=== PATIENT | female | born 1995 | race Caucasian/White ===

== ENCOUNTER 2021-07-21 14:31 | Inpatient (IN) ==
[2021-07-21] MEDS ORDERED: AMPICILLIN/SULBACTAM SOD 3,000 MG in 0.9 % SODIUM CHLORIDE 100 ML IV STA (15:10)
[2021-07-21] MEDS ORDERED: SODIUM CHLORIDE 0.9% 1000ML 1,000 ML IV ONE (15:13)
[2021-07-21] MEDS ORDERED: NICOTINE POLACRILEX 2 MG GUM MT STA (15:24)
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
[2021-07-21] MEDS ORDERED: NICOTINE 14 MG/24 HR PATCH TD ONE (15:25)
[2021-07-21 15:53] LABS: Hematocrit (blood only) 38.9 % (37-47); Mean Corpuscular Hemoglobin 30.1 pg (25-34); Mean Corpuscular Hgb Conc 33.4 g/dL (32-36); Platelet Count 545 K/uL (130-400); RDW Coefficient of Variation 15.8 % (11.5-14.5); RDW Standard Deviation 52.2 fL (36.4-46.3); Red Blood Count 4.32 M/uL (4.2-5.4); White Blood Count 12.58 K/uL (4.8-10.8)
[2021-07-21 16:17] LABS: Acetaminophen < 2 ug/ml (10-30); Albumin Level 4.2 gm/dl (3.4-5.0); BUN Creatinine Ratio 17.6 (10-20); Calcium 10.2 mg/dl (8.5-10.1); Est GFR (African American) 117.1 ml/min; Potassium 3.5 mmol/L (3.5-5.1); Salicylate < 1.7 mg/dl (2.8-20)
[2021-07-21 16:24] LABS: Basophils # (auto) 0.03 K/uL (0-0.2); Basophils % (auto) 0.2 %; Eosinophils # (auto) 0.08 K/uL (0-0.5); Eosinophils % (auto) 0.6 %; Immature Granulocytes # (auto) 0.02 K/uL (0.00-0.02); Immature Granulocytes % (auto) 0.2 %; Lymphocytes # (auto) 3.77 K/uL (1.2-3.4); Monocytes # (auto) 0.67 K/uL (0.11-0.59); Monocytes % (auto) 5.3 %; Neutrophils # (auto) 8.01 K/uL (1.4-6.5); Neutrophils % (auto) 63.7 %
[2021-07-21 16:27] LABS: Bilirubin,Total 0.7 mg/dl (0.2-1); Globulin 4.1 gm/dl (2.5-4.0); Thyroid Stimulating Hormone 1.24 uIu/ml (0.300-4.500); Total Protein 8.3 gm/dl (6.4-8.2)
--- NOTE | 2021-07-21 17:18 | XRay Report ---
XR hand RT min 3V routine CLINICAL HISTORY: Left hand pain, bruising and swelling. Evaluate for fracture.. COMPARISON STUDY: No previous studies for comparison. TECHNIQUE: 3 right hand views FINDINGS: Bones: There is an oblique fracture present through the base of the fourth metacarpal. It is mildly d isplaced with cortical overriding present. The remaining bones are intact anatomic alignment. There i s no lytic or blastic lesion. Joints: The joint spaces are maintained. The bones are in anatomic alignment. Soft tissues: There is moderate swelling along the dorsum of the hand and also involving the palmar a spect. There is no radiopaque foreign body. IMPRESSION: Oblique, mildly space fracture involving the base of the fourth metacarpal. Soft tissue s welling. ACT 112: Negative or not required by law. Electronically signed by: Abraham Joyce M.D. 07/21/2021 5:17 PM
--- NOTE | 2021-07-21 17:20 | XRay Report ---
XR wrist RT min 3V routine, XR forearm RT 2V CLINICAL HISTORY: Pain, bruising and swelling. COMPARISON STUDY: No previous studies for comparison. TECHNIQUE: 4 right wrist and AP and lateral right forearm views FINDINGS: Bones: There is no evidence for an acute fracture or dislocation. There is no lytic or blastic lesion . Joints: The joint spaces are maintained. The bones are in anatomic alignment. Soft tissues: There is no focal soft tissue abnormality. There is no radiopaque foreign body. IMPRESSION: No acute osseous pathology. ACT 112: Negative or not required by law. Electronically signed by: Abraham Joyce M.D. 07/21/2021 5:19 PM
[2021-07-21 19:00] LABS: Appearance Urine Cloudy (Clear); Bacteria Urine Automated 3+ (Negative); Bilirubin Urine Negative (Negative); Blood Urine Negative (Negative); Color Urine Yellow; Epithelial Cell Urine Auto >30 /lpf (0-5); Glucose Urine UA Negative (Negative); Ketones Urine Trace (Negative); Leukocyte Esterase Urine 1+ (Negative); Nitrite Urine Positive (Negative); Protein Urine Negative (Negative); RBC Urine Automated 0-4 /hpf (0-4); Urobilinogen Urine Negative (Negative)
[2021-07-21 19:27] LABS: Amphetamines+Metham, Urine Pos (Neg); Barbiturates, Urine Neg (Neg); Benzodiazepine, Urine Neg (Neg); Cocaine, Urine Neg (Neg); MDMA (Ecstacy), Urine Pos (Neg); Methadone, Urine Neg (Neg); Opiate, Urine Neg (Neg); Phencyclidine, Urine Neg (Neg)
[2021-07-21 20:58] LABS: Pregnancy Test, Urine Negative (Negative)
[2021-07-21] MEDS ORDERED: LORazepam 1 MG TAB SL PRN (21:04)
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
--- NOTE | 2021-07-22 06:34 | Emergency Department Note ---
ED Visit Note I received this patient in signout at change of shift from Dr. Argueta at the change patient is currently a 302 with a bed search underway. Pt was resting for the night without incident. Case has been signed out to Dr. Flor at the change of shift. Please see his note for final disposition. .
[2021-07-22] MEDS: AMOXICILLIN/CLAVULANATE 875 MG TAB PO SCH ×2 (08:48→20:48)
--- NOTE | 2021-07-22 09:12 | Emergency Department Note ---
ED Visit Note This patient is a 26-year-old female who signed out to me at shift change by Dr. Grande awaiting placement. 302 patient had been signed off on and the patient also had been medically cleared. When I going to check her she is cooperative and eating breakfast. Her nicotine patch did run out so I did renew this. [facility] did review her and seemed willing to take her initially but then declined her as she has a splint for a fracture. I reviewed the x-ray and this definitely needs immobilization. I had our child welfare caseworker call back to see w hat kind of immobilization would be acceptable for them and they said none. Unfortunately because of this they could not take her. [facility] has been consulted for possible admission there as well as they may have a bed this evening. She will be signed out to the evening ER doc for follow-up on this .
[2021-07-22] MEDS: NICOTINE 14 MG/24 HR PATCH TD SCH (09:30)
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
[2021-07-22] MEDS ORDERED: OLANZAPINE 2.5 MG TAB PO ONE (15:00)
[2021-07-22] MEDS ORDERED: PATIENT'S ALLERGY INFO NEEDS ENTERED SCH (15:00)
--- NOTE | 2021-07-22 20:13 | Emergency Department Note ---
ED Visit Note This patient was signed out to me by Dr. Flor pending placement into a psychiatric facility. I did originally see the patient and signed a 302 due to homicidal and suicidal ideation. She was also placed on Augmentin for a UTI as well as right hand infection. She was seen by [address] [facility] [address] Parks recommended Zyprexa. They do have a bed available on [facility] but are unwilling to take her unless she is compliant with the medication. She states that she will take the Zyprexa but she wants to research it more before she takes it and is currently refusing the dosage. She has been otherwise cooperative. She did asked to be tested for MRSA and STDs. A MRSA swab was obtained and was negative. I did also order a GC and chlamydia vaginal swab but she was advised that should she want testing for other STDs she needed to follow-up with her doctor or a clinic. I did talk to the staff at [facility] who also spoke to Dr. Parks of psychiatry. They stated that as long as she is compliant with the medication they would be willing to take her tomorrow morning. The patient was signed out to Dr. Leija at change of shift. .
[2021-07-22] MEDS: PANTOprazole 40 MG TAB PO SCH (20:48)
[2021-07-22] MEDS ORDERED: OLANZapine 5 MG TABLET PO SCH (21:00)
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
--- NOTE | 2021-07-23 04:00 | Emergency Department Note ---
ED Visit Note This case was signed out to me at change of shift awaiting bed placement. Patient rested throughout the night. She will be evaluated by [facility] in the morning. The patient is awaiting evaluation by [facility] The case will be signed out to Dr. Armando at change of shift. .
--- NOTE | 2021-07-23 08:01 | Emergency Department Note ---
ED Visit Note ED Physician Sign Out Note: 26 yr old female with multiple suicidal/homicidal statements in ED on 302 warrant for mental health. Medically cleared earlier and pending placement when signed out to me. Patient has small hand fracture which per Dr Mansfield note is to be in wrist splint. I would advise continued splint, and PCP and/or Ortho follow up as outpatient for re-evaluation once she is discharged. She has concern for hand infection for which she has been receiving Augmentin. It would be reasonable that she continue taking this as per prescribed earlier by ED provider for a total of 7 days, twice daily. Patient was excepted and taken to [facility] for further management. Shayne Armando MD
[2021-07-23] MEDS: NICOTINE 14 MG/24 HR PATCH TD SCH (08:59)
[2021-07-23] MEDS: AMOXICILLIN/CLAVULANATE 875 MG TAB PO SCH ×2 (08:59→18:47)
[2021-07-23] MEDS: PANTOprazole 40 MG TAB PO SCH ×2 (09:10→21:26)
[2021-07-23] MEDS ORDERED: NICOTINE POLACRILEX 2 MG GUM MT PRN (09:38)
[2021-07-23] MEDS ORDERED: BISMUTH SUBSALICYLATE LIQD 236 ML PO PRN (09:38)
[2021-07-23] MEDS ORDERED: ALUMINUM/MAGNESIUM SUSP 30 ML UDC PO PRN (09:38)
[2021-07-23] MEDS ORDERED: MAGNESIUM HYDROXIDE SUSP 30 ML UDC PO PRN (09:38)
[2021-07-23] MEDS ORDERED: ACETAMINOPHEN 325 MG TAB PO PRN (09:38)
[2021-07-23] MEDS ORDERED: hydrOXYzine HCl 25 MG TAB PO PRN ×2 (09:38)
[2021-07-23] MEDS ORDERED: SODIUM CHLORIDE 0.65% NA SOLN 45 ML (OCEAN) PRN (09:38)
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
[2021-07-23] MEDS ORDERED: OLANZapine 10 MG/2.1 ML SDV IM PRN (16:33)
[2021-07-23] MEDS: OLANZapine 10 MG TAB PO SCH (21:26)
[2021-07-24 09:11] LABS: Glucose Fasting 97 mg/dl (70-99)
[2021-07-24 09:18] LABS: Chol HDL Ratio 4; Cholesterol 173 mg/dl (0-200); HDL Cholesterol 47 mg/dl; LDL Cholesterol Calculated 87 mg/dl; Triglycerides 194 mg/dl (0-150); VLDL Cholesterol 39 mg/dl
[2021-07-24] MEDS: NICOTINE 21 MG/24 HR TDSY TD SCH (10:31)
[2021-07-24] MEDS: AMOXICILLIN/CLAVULANATE 875 MG TAB PO SCH ×2 (10:32→17:39)
[2021-07-24] MEDS: PANTOprazole 40 MG TAB PO SCH ×2 (10:32→20:57)
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
[2021-07-24] MEDS: OLANZapine 10 MG TAB PO SCH (20:57)
[2021-07-25] MEDS: AMOXICILLIN/CLAVULANATE 875 MG TAB PO SCH (09:10)
[2021-07-25] MEDS: PANTOprazole 40 MG TAB PO SCH (09:10)
[2021-07-25] MEDS: NICOTINE 21 MG/24 HR TDSY TD SCH (09:12)
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
[2021-07-26 16:31] LABS: Amphetamine Urine, Confirm 3450 ng/mL (<250); MDA negative; MDEA negative; MDMA (Ecstasy) Urine, Confirm negative; Methamphetamine, Ur Confirm >15000 ng/mL (<250)
== END 2021-07-25 10:06 | disposition home or self-care (01) | DRG 885 ==
LOC: ED 14:31 → 3S 07-23 09:19

== ENCOUNTER 2024-06-19 16:46 | Observation (INO) ==
--- OUTSIDE RECORDS SUMMARY | 2024-06-19 16:50 | External Medical Summary | Summary of Care ---
Author Name Unknown Organization [facility] Address [address] [place] [address] Phone [phone] Care Team Providers Care Cigarette Making Machine Catcher Name Role Phone Seven Guerrero MD Primary Care Provider [phone] Reason for Visit * Reason Comments Emergency Department Follow-Up Patient i s here for an ER follow up from [facility] [place] on 06/12/24 for closed rib fracture. Patient would like to discuss her GERD as well as it is acting up currently. Encounter Details Date Type Department Care Team (Latest Contact Info) Description 06/16/2024 12:40 PM EST [facility] [address] [place] [phone] Seven Guerrero MD [address] [place] [address] Gastroesophageal reflux disease, unspecified whether esophagitis present*; Closed fracture of one rib of right side with routine healing, subsequent encounter; Polysubstance abuse (HCC) Allergies No known active allergiesdocumented as of this encounter (statuses as of 06/16/2024) Medications Medication Sig Dispensed Refills Start Date End Date Status Omeprazole 40 MG Oral Capsule Delayed Release (PriLOSEC)Indicatio ns:Retching,Gastroe sophageal reflux disease, unspecified whether esophagitis present Take 1 Capsule by mouth in the morning and 1 Capsule before bedtime. 180 Capsule 3 08/12/2023 Active Famotidine 40 MG Oral Tablet (Pepcid)Indications :Retching,Gastroeso phageal reflux disease, unspecified whether esophagitis present Take 1 Tablet by mouth in the morning and 1 Tablet before bedtime. take 1 tablet by mouth every morning and BEFORE BEDTIME. 180 Tablet 3 08/12/2023 Active 28-0.8 MG Oral TabletIndications:N ormal in first trimester Take 1 Tablet by mouth daily. 90 Tablet 3 12/25/2023 Active Folic Acid 1 MG Oral TabletIndications:N ormal in first trimester,Medicatio n exposure during first trimester of Take 1 Tablet by mouth in the morning. 90 Tablet 3 12/25/2023 Active Ondansetron 4 MG Oral Tablet Disintegrating (Zofran)Indications :Retching dissolve 1 tablet ON TONGUE every 8 hours if needed for nausea OR vomiting 30 Tablet 2 01/20/2024 Active Promethazine HCl 25 MG Rectal Suppository (Phenergan)Indicati ons:Retching,Gastro esophageal reflux disease, unspecified whether esophagitis present Administer 1 Suppository into the rectum every 6 hours as needed for Nausea. 20 Suppository 1 01/20/2024 Active ARIPiprazole 15 MG Oral Tablet (Abilify) Take 1 Tablet by mouth in the morning. 30 Tablet 3 05/18/2024 Active Escitalopram Oxalate 20 MG Oral Tablet (Lexapro) Take 1 Tablet by mouth in the morning. 30 Tablet 3 05/18/2024 Active Gabapentin 100 MG Oral Capsule (Neurontin) Take 1 Capsule by mouth in the morning and 1 Capsule at noon and 1 Capsule before bedtime. 90 Capsule 3 05/18/2024 Active Sucralfate 1 GM/10ML Oral Suspension (Carafate)Indicatio ns:Gastroesophageal reflux disease, unspecified whether esophagitis present Take 10 mL by mouth in the morning and 10 mL before bedtime. 420 mL 1 06/16/2024 Active oxyCODONE HCl 5 MG Oral Tablet (Oxy IR)Indications:Clos ed fracture of one rib of right side with routine healing, subsequent encounter Take 1 Tablet by mouth every 8 hours as needed for Pain, Severe. 20 Tablet 06/16/2024 Active documented as of this encounter (statuses as of 06/16/2024) Active Problems Problem Noted Date Diagnosed Date Supervision of high risk , antepartum 0 12/25/2023 Bipolar disease during 12/25/2023 Overview: Bipolar disorder managed currently with Abilify and Gabapentin Manages by Dr Emma West Reports "struggling with mood". Denies any suicidal or homicidal ideation. Reports she has a good support system at home. Last Assessment & Plan: CONSIDERATIONS: and delivery can worsen the symptoms of bipolar disorder. and women have a sevenfold higher risk of hospital admission than those who have not recently been . Rates of relapse range from 32% to 67%. There also is an increased risk of psychosis as high as 46%. Stopping treatment may increase the risk of recurrent mood episodes, particularly if medications are discontinued abruptly (eg, in less than two weeks). Women who discontinue medication within 6 months of conception are more than twice as likely to suffer a recurrence of the disease. Neurontin (Gabapentin)- Crosses the placenta. There is insufficient clinical experience with gabapentin in to confirm its safety in this patient population. Since gabapentin is frequently prescribed with other anticonvulsants, a clear association between maternal gabapentin use and adverse effects can not be determined. Due to lack of adequate, well-controlled studies, the manufacturers recommend that gabapentin should be used during only if the potential benefit outweighs the potential risk to the fetus. According to several registries, major congenital malformations were reported in 1.7% of infants with first trimester gabapentin monotherapy exposure compared to 1.6% to 2.2% reported in the general population. Major congenital malformations included: ventricular septal defect, congenital heart disease, endocardial fibroelastosis, tethered spinal cord and hydronephrosis. Encouraged patient to continue current medications as prescribed, and follow up with prescribing provider regarding monitoring for need for dose adjustments as the advances. Discussed taking the lowest dose possible to maintain effective treatment of her symptoms. Consider counseling as adjunct therapy for treatment of patient's symptoms of anxiety and depression during . Abilify/Aripiprazole. There are no adequate and well-controlled studies of aripiprazole use during in humans; however, animal studies have shown aripiprazole to be teratogenic and fetotoxic. Third-trimester antipsychotic drug exposure has been associated with extrapyramidal and/or withdrawal symptoms in neonates. Therefore, aripiprazole should be used during only if the maternal benefit justifies the risk. RECOMMENDATIONS: For bipolar patients who are , we suggest maintenance pharmacotherapy rather than no treatment. However, for patients with a mild lifetime course of illness, it is reasonable to try to avoid pharmacotherapy during . The decision to treat bipolar disorder during should be determined on an individualized basis and treatment should be provided by general psychiatrists in collaboration with obstetricians and primary care clinicians Tobacco smoking complicating Overview: Reports quit 12/30/23 Last Assessment & Plan: Strongly advised patient to stop using tobacco. Discussed that tobacco use is associated with increased risks of spontaneous miscarriage, labor and delivery, premature rupture of membranes, growth restriction, stillbirth, SIDS postnatally, and placental abnormalities such as previa or abruption. Advised patient that the most successful method to abstain quitting smoking is if those around you do not smoke as well. Herpes infection in 12/25/2023 Overview: Suppression at 36 wks Medication exposure during first trimester of pr egnancy 12/25/2023 Overview: medication exposure to lamictal and lexapro for bipolar disorder Stopped with knowledge of the Last Assessment & Plan: I reviewed the US with her. The anatomy that was visualized appears unremarkable and the biometry is appropriate for the gestational age. The amniotic fluid volume is subjectively normal. At this point, there is no clinical indication for return. Marijuana use during 12/25/2023 Overview: 01/06/24 reports daily medical marijuana use; encouraged cessation Last Assessment & Plan: CONSIDERATIONS: Chemicals found in marijuana, such as tetrahydrocannabinol (THC), are distributed to the brain and fat and cross the placenta. THC also appears in breast milk. In utero exposure is associated with short and long-term morbidity. A positive screen result is reported to [facility]. RECOMMENDATIONS: Abstain from marijuana use in and while ; avoid secondhand exposure. Discontinue use of marijuana for medicinal purposes in favor of an alternative therapy for which there are better -specific safety data. Food insecurity 08/18/2023 Overview: Per [facility] Protocol Bipolar 1 disorder 08/12/2023 Bipolar disorder, current episode mixed, mild Overview: Last Assessment & Plan: Will refill medication in the interim Referral to psychiatry for follow up Gastroesophageal reflux disease 10/14/2022 Overview: Last Assessment & Plan: Refill of omeprazole provided Primary insomnia 10/14/2022 Overview: Last Assessment & Plan: Refill of trazodone and melatonin provided Nicotine dependence, cigarettes, uncomplicated 0 12/11/2021 Polysubstance abuse 11/16/2021 Overview: Last Assessment & Plan: Referral to recovery medicine Estimated Date of Delivery Comme nts Yes 07/30/2024 Based on Ultraso und documented as of this encounter (statuses as of 06/16/2024) Resolved Problems Problem Noted Date Diagnosed Date Resolved Date Psychoactive substance-induced psychosis 11/16/2021 08/12/2023 documented as of this encounter (statuses as of 06/16/2024) Immunizations Name Administration Dates Next Due Pneumococcal Conjugate Vaccine, 20-valent (Prevn ar20) 08/12/2023 TDAP (age 10 and older)(Boostrix) 08/12/2023 TDAP, Age 7 and older, IM (Adacel) 05/07/2024 documented as of this encounter Social History Tobacco Use Types Packs/Day Years Used Date Smoking Tobacco: Every Day Cigarettes Started: 12/30/2023 Smokeless Tobacco: Never Alcohol Use Standard Drinks/Week Comments Never 0 (1 standard drink = 0.6 oz pur e alcohol) Hunger Vital Sign Answer Date Recorded Within the past 12 months, y ou worried that your food would run out before you got the money to buy more. Sometimes true Within the past 12 months, t he food you bought just didn't last and you didn't have money to get more. Sometimes true [place] Depression Scale Answer Date Recorded [place] Depression Scale Total 18 12/25/2023 The thought of harming myself has occurred to me . Never 12/25/2023 Childcare Answer Date Recorded Do you feel overwhelmed with taking care of a child, family member or friend? Yes 07/29/2023 Does your family need help f inding childcare? (Household - for ages 0-17 years) Not on file 07/29/2023 Clothing Answer Date Recorded Have you been unable to get clothing when it was really needed? No 07/29/2023 Is your family able to get c lothes or diapers when needed? (Household - for ages 0-17 years) Not on file 07/29/2023 Personal Safety Answer Date Recorded Do you feel unsafe or have concerns for your saf ety? Yes 07/29/2023 Do you have concerns for you r family's safety? (Household - for ages 0-17 years) Not on file 07/29/2023 Utilities Answer Date Recorded Do you have trouble paying y our heating, water, or electric bill? No 07/29/2023 Is your family able to pay t he heat, water, or electric bill? (Household - for ages 0-17 years) Not on file 07/29/2023 Does your family have access to good internet? (Household - for ages 0-17 years) Not on file 07/29/2023 Employment Status Answer Date Recorded Are you unemployed or without regular income? Ye s 07/29/2023 Does the household have a re gular source of income? (Household - for ages 0-17 years) Not on file 07/29/2023 Social Connections Answer Date Recorded How often do you feel lonely or isolated from th ose around you? Often 07/29/2023 Financial Resource Strain Answer Date R ecorded Do you have any trouble payi ng for your medications, or do you think you might in the future? Yes 07/29/2023 Does your family have troubl e paying for medicine? (Household - for ages 0-17 years) Not on file 07/29/2023 Transportation Needs Answer Date Record ed READ ONLY Do you have troubl e getting a ride to medical visits or work? Sometimes True 07/29/2023 Does your family have a hard time getting a ride to doctors visits? (Household - for ages 0-17 years) Not on file 07/29/2023 Has lack of transportation k ept you from medical appointments, meetings, work, or from getting things needed for daily living? Check all that apply. (Adult - for ages 18 years and over) Not on file 07/29/2023 Do you (or your family) have trouble finding or paying for a ride (transportation)? (Household - for ages 0-17 years) Not on file 07/29/2023 Housing Stability Answer Date Recorded Do you currently live in a s helter or have no steady place to sleep at night? No 07/29/2023 READ ONLY Do you think you a re at risk of becoming homeless? Yes 07/29/2023 Does your family worry about paying for your home or becoming homeless? (Household - for ages 0-17 years) Not on file 1 09/29/2022 Are you homeless or worried that you might be in the future? (Adult - for ages 18 years and over) Not on file Are you (or your family) nadiya eless or worried that you might be in the future? (Household - for ages 0-17 years) Not on file Food Insecurity Answer Date Recorded Do you need food for this week? No 07/29/2023 Are you able to get enough f ood for your family? (Household - for ages 0-17 years) Not on file 07/29/2023 Does your family need food t his week? (Household - for ages 0-17 years) Not on file 07/29/2023 Do you always have enough fo od for your family? (Household - for ages 0-17 years) Not on file 07/29/2023 Estimated Date of Delivery Comme nts Yes 07/30/2024 Based on Ultraso und Sex and Gender Information Value Date Recorded Sex Assigned at Female 07/29/2023 10:54 AM EST Gender Identity Choose not to disclose 3 10:54 AM EST Sexual Orientation Pansexual 07/29/2023 10 :54 AM EST Job Start Date Occupation Industry Not on file Not on file Not on file documented as of this encounter Last Filed Vital Signs Vital Sign Reading Time Taken Comments Blood Pressure 118/70 06/16/2024 12:35 PM EST Pulse 109 06/16/2024 12:35 PM EST Temperature 36.9 C (98.4 F) 06/16/2024 1 2:35 PM EST Respiratory Rate 17 06/16/2024 12:3 5 PM EST Oxygen Saturation 97% 06/16/2024 12: 35 PM EST Inhaled Oxygen Concentration - - Weight 74.3 kg (163 lb 11.2 oz) 024 12:35 PM EST Height - - Body Mass Index 29.94 05/26/2024 10:14 AM EDT documented in this encounter Progress Notes * Seven Guerrero MD - 06/16/2024 12:47 PM EST Images from the original note were not included. Assessment and Plan 1. Gastroesophageal reflux disease, unspecified whether esophagitis present Continue omeprazole and famotidine. Add sucralfate. - Sucralfate 1 GM/10ML Oral Suspension (Carafate); Take 10 mL by mouth in the morning and 10 mL before bedtime. Dispense: 420 mL; Refill: 1 2. Closed fracture of one rib of right side with routine healing, subsequent encounter Right 10th rib fracture with turing. Denies trauma. Pain control with tylenol, lidocaine patch, heat/ice, oxycodone as below. Limit use given patient's history of polysubstance use and risk to baby. Continue incentive spirometry. - oxyCODONE HCl 5 MG Oral Tablet (Oxy IR); Take 1 Tablet by mouth every 8 hours as needed for Pain,Severe. Dispense: 20 Tablet; Refill: 0 3. Polysubstance abuse (HCC) Wrap-Up Follow up as needed. History of Present Illness The patient is a 29-year-old female with past medical history of bipolar 1 disorder, polysubstance abuse, tobacco use, marijuana use, GERD who presents for ED follow up. Patient was seen at [facility] on 06/12/2024. Patient at almost 8 months who presented to the Emergency Room 30 minutes after onset of severe right-sided rib and back pain. Patient reported pain for the week prior, however, severe pain started just prior to evaluation in the hospital when she turned wrong and felt the snap crackle pop in her ribs. She fell forward but did not hit her abdomen. She did note that pain pain is dull when not moving and 9/10 and sharp when moving resulting in her breath being taken away. Right-sided rib series with chest x-ray showed a right-sided rib fracture without significant displacement and no evidence of pneumothorax. OBGYN was consulted who recommended opioid pain medication and Lidoderm patch. No further evaluation as needed in the hospital as heart tones were normal at 133 and the patient had no contractions or bleeding. Patient received Tylenol, morphine, Zofran in the hospital. She was given an Oxy IR home pack. Physical Exam Vitals: 06/16/24 1235 Temp: 36.9 C (98.4 F) Pulse: 109 Resp: 17 SpO2: 97% BP: 118/70 Physical Exam Physical Exam Vitals reviewed. Constitutional: General: Caitlin is not in acute distress. Cardiovascular: Rate and Rhythm: Normal rate and regular rhythm. Heart sounds: No murmur heard. Pulmonary: Effort: Pulmonary effort is normal. No respiratory distress. Musculoskeletal: Comments: Pain with palpation of the right chest wall. No visible deformities. No bruising noted. Neurological: General: No focal deficit present. Mental Status: Caitlin is alert. This note has been completed in part utilizing [employer] Speech Voice Recognition Software. Due to technical limitations of the software, grammatical errors, random word insertions, prounoun errors, and incomplete sentences may occur. Any formal questions or concerns about the content, text, or information contained within the body of this dictation should be directly addressed to the provider for clarification. documented in this encounter Nursing Notes * Kinga Mcnair LPN - 06/16/2024 12:38 PM EST The patient has been properly identified by confirmation of name and date of . Chief Complaint Patient presents with Emergency Department Follow-Up Patient is here for an ER follow up from [facility] [place] on 06/12/24 for closed rib fracture. documented in this encounter Plan of Treatment Upcoming Encounters Date Type Department Care Team (Late st Contact Info) Description 06/16/2024 2:15 PM EST Office Visit Gynecology/Obstetrics [address] [place] [address] [place], RADHA [address] [place] [address] 08/16/2024 3:00 PM EST Telemedicine Psychiatry [facility] [address] [place] [address] Emma West MD [address] [place] [address] 03/09/2025 4:00 PM EDT Office Visit [facility] [address], [place] [phone] December, Seven Neff MD [address] [place] [address] Health Maintenance Due Date Last Done Comments HPV/Co-Test 02/02/2024 COVID-19 Vaccine (1 - 2023-2 5 season) 2024 Influenza Vaccine (FLU shot) (#1) 2024 Cervical Cancer Screening 04/01/2026 Pap Smear 04/01/2026 04/01/2023 DTap/Tdap Vaccines (3 - Td o r Tdap) 05/07/2034 05/07/2024, 08/12/2023 Pneumococcal Vaccine: Pediatrics (0 to 5 Years) and At-Risk Patients (6 to 64 Years) Completed 08/12/2023 HPV (Gardasil) Vaccine Aged Out No lo nger eligible based on patient's age to complete this topic Hepatitis B Vaccine Discontinued MENINGOCOCCAL (MENACTRA/MENVEO) Aged Out No longer eligible based on patient's age to complete this topic documented as of this encounter Goals Goal Patient Goal Type Associated Problems Recent Progress Patient-Stated? Author Reminders Care Plan OB Reminders No Mychart, Provider documented as of this encounter Medical Devices Not on filedocumented as of this encounter Visit Diagnoses Diagnosis Gastroesophageal reflux disease, unspecified whether esophagitis present- Primary Closed fracture of one rib of right side with routine healing, subsequent encounter Polysubstance abuse (HCC) Other, mixed, or unspecified nondependent drug abuse, unspecified documented in this encounter Additional Health Concerns Active Problems Noted Date Diagnosed Date OB Reminders 04/20/2024 documented as of this encounter Care Teams Cigarette Making Machine Catcher Relationship Specialty Start Date End Date December, Seven Neff MD [address] [place] [address] PCP - General Family Medicine 02/24/23 documented as of this encounter
--- OUTSIDE RECORDS SUMMARY | 2024-06-19 16:50 | External Medical Summary | Summary of Care ---
Author Name Unknown Organization [facility] Address [address] [place] [address] Phone [phone] Care Team Providers Care Solderer Dipper Name Role Phone Seven Guerrero MD Primary Care Provider [phone] Reason for Visit * Reason Comments Emergency Department Follow-Up Patient i s here for an ER follow up from [facility] on 06/12/24 for closed rib fracture. Patient would like to discuss her GERD as well as it is acting up currently. Encounter Details Date Type Department Care Team (Latest Contact Info) Description 06/16/2024 12:40 PM EST [facility] [address] [place] [phone] Seven Guerrero MD [address] [place] [address] Gastroesophageal reflux disease, unspecified whether esophagitis present*; [...] have money to get more. Sometimes true [place] Depression Scale Answer Date Recorded [place] Depression Scale Total 18 12/25/2023 The thought [...] ED follow up. Patient was seen at [facility] on 06/12/2024. Patient at almost 8 months [...] note has been completed in part utilizing [employer] Speech Voice Recognition Software. Due to technical [...] here for an ER follow up from [facility] on 06/12/24 for closed rib fracture. documented in this encounter Plan of Treatment Upcoming Encounters Date Type Department Care Team (Late st Contact Info) Description 06/16/2024 2:15 PM EST Office Visit Gynecology/Obstetrics [address] [place] [address] [place], RADHA [address]uno [address] [place] [address] 08/16/2024 3:00 PM EST Telemedicine Psychiatry [facility] [address] [place] [address] Emma West MD [address] [place] [address] 03/09/2025 4:00 PM EDT Office Visit [facility] [address] [place], [place] [phone] December, Seven Neff MD [address] [place] [address] Health Maintenance Due Date Last Done Comments [...] documented as of this encounter Care Teams Solderer Dipper Relationship Specialty Start Date End Date December, Seven Neff MD [address] [place] [address] PCP - General Family Medicine 02/24/23 documented as of this encounter
--- OUTSIDE RECORDS SUMMARY | 2024-06-19 16:50 | External Medical Summary | Summary of Care ---
Author Name Unknown Organization [facility] Address [address] [place] [address] Phone [phone] Care Team Providers Care Greenhouse Manager Name Role Phone Seven Guerrero MD Primary Care Provider [phone] Reason for Visit * Reason Comments Emergency Department Follow-Up Patient i s here for an ER follow up from [facility] on 06/12/24 for closed rib fracture. Patient would like to discuss her GERD as well as it is acting up currently. Encounter Details Date Type Department Care Team (Latest Contact Info) Description 06/16/2024 12:40 PM EST [facility] [address] [place] [phone] Seven Guerrero MD [address] [place] [address] Gastroesophageal reflux disease, unspecified whether esophagitis present*; [...] have money to get more. Sometimes true [place] Depression Scale Answer Date Recorded [place] Depression Scale Total 18 12/25/2023 The thought [...] ED follow up. Patient was seen at [facility] on 06/12/2024. Patient at almost 8 [...] note has been completed in part utilizing [employer] Speech Voice Recognition Software. Due to technical [...] here for an ER follow up from [facility] on 06/12/24 for closed rib fracture. documented in this encounter Plan of Treatment Upcoming Encounters Date Type Department Care Team (Late st Contact Info) Description 06/16/2024 2:15 PM EST Office Visit Gynecology/Obstetrics [address] [place] [address] [place], RADHA Garduno [address] [place] [address] 08/16/2024 3:00 PM EST Telemedicine Psychiatry [facility] [address] [place] [address] Emma West MD [address] [address] 03/09/2025 4:00 PM EDT Office Visit [facility] [address] [place], [place] [phone] December, Seven Neff MD [address] [place] [address] Health Maintenance Due Date Last Done Comments [...] documented as of this encounter Care Teams Greenhouse Manager Relationship Specialty Start Date End Date December, Seven Neff MD [address] [place] [address] PCP - General Family Medicine 02/24/23 documented as of this encounter
--- OUTSIDE RECORDS SUMMARY | 2024-06-19 16:50 | External Medical Summary | Summary of Care ---
Author Name Unknown Organization [facility] Address [address] [facility] [place] [address] Phone [phone] Care Team Providers Care Tax Clerk Name Role Phone Seven Guerrero MD Primary Care Provider [phone] Reason for Visit * Reason Comments Return Visit Encounter Details Date Type Department Care Team (Late st Contact Info) Description 06/16/2024 2:15 PM EST Office Visit Gynecology/Obstetric s Janki Cisneros [address] [place] [id number] BackerJud CRNP [address] [place] [id number] Supervision of high risk , antepartum*; Bipolar disease during in third trimester (HCC); Tobacco smoking affecting in third trimester; Herpes virus infection in mother during third trimester of ; Medication exposure during first trimester of ; Marijuana use during Allergies No known active allergiesdocumented as of [...] you got the money to buy more. Patient declined Within the past 12 months, t he food you bought just didn't last and you didn't have money to get more. Patient declined 01/2024 [place] Depression Scale Answer Date Recorded [place] Depression Scale Total 18 12/25/2023 The thought of harming myself has occurred to me . Never 12/25/2023 Childcare Answer Date Recorded Do you feel overwhelmed with taking care of a child, family member or friend? No 06/16/2024 Does your family need help f inding childcare? (Household - for ages 0-17 years) Not on file 06/16/2024 Clothing Answer Date Recorded Have you been unable to get clothing when it was really needed? No 06/16/2024 Is your family able to get c lothes or diapers when needed? (Household - for ages 0-17 years) Not on file 06/16/2024 Personal Safety Answer Date Recorded Do you feel unsafe or have concerns for your saf ety? No 06/16/2024 Do you have concerns for you r family's safety? (Household - for ages 0-17 years) Not on file 06/16/2024 Utilities Answer Date Recorded Do you have trouble paying y our heating, water, or electric bill? No 06/16/2024 Is your family able to pay t he heat, water, or electric bill? (Household - for ages 0-17 years) Not on file 06/16/2024 Does your family have access to good internet? (Household - for ages 0-17 years) Not on file 06/16/2024 Employment Status Answer Date Recorded Are you unemployed or without regular income? No 06/16/2024 Does the household have a re lar source of income? (Household - for ages 0-17 years) Not on file 06/16/2024 Social Connections Answer Date Recorded How often do you feel lonely or isolated from th ose around you? Rarely 06/16/2024 Financial Resource Strain Answer Date R ecorded Do you have any trouble payi ng for your medications, or do you think you might in the future? No 06/16/2024 Does your family have troubl e paying for medicine? (Household - for ages 0-17 years) Not on file 06/16/2024 Transportation Needs Answer Date Record ed READ ONLY Do you have troubl e getting a ride to medical visits or work? Sometimes True 06/16/2024 Does your family have a hard time getting a ride to doctors visits? (Household - for ages 0-17 years) Not on file 06/16/2024 Has lack of transportation k ept you from medical appointments, meetings, work, or from getting things needed for daily living? Check all that apply. No 024 Do you (or your family) have trouble finding or paying for a ride (transportation)? (Household - for ages 0-17 years) Not on file 06/16/2024 Housing Stability Answer Date Recorded Do you currently live in a s helter or have no steady place to sleep at night? No 06/16/2024 READ ONLY Do you think you a re at risk of becoming homeless? Yes 06/16/2024 Does your family worry about paying for your home or becoming homeless? (Household - for ages 0-17 years) Not on file 1 08/16/2023 Are you homeless or worried that you might be in the future? No 06/16/2024 Are you (or your family) nadiya eless or worried that you might be in the future? (Household - for ages 0-17 years) Not on file Food Insecurity Answer Date Recorded Do you need food for this week? No 06/16/2024 Are you able to get enough f ood for your family? (Household - for ages 0-17 years) Not on file 06/16/2024 Does your family need food t his week? (Household - for ages 0-17 years) Not on file 06/16/2024 Do you always have enough fo od for your family? (Household - for ages 0-17 years) Not on file 06/16/2024 Estimated Date of Delivery Comme nts Yes 07/30/2024 Based on Ultraso und Sex and Gender Information Value Date Recorded Sex Assigned at Female 07/29/2023 10:54 AM EST Gender Identity Choose not to disclose 10:54 AM EST Sexual Orientation Pansexual 07/29/2023 10 :54 AM EST Job Start Date Occupation Industry Not on file Not on file Not on file documented as of this encounter Last Filed Vital Signs Vital Sign Reading Time Taken Comments Blood Pressure 110/62 06/16/2024 2:13 PM EST Pulse - - Temperature - - Respiratory Rate - - Oxygen Saturation - - Inhaled Oxygen Concentration - - Weight 74.8 kg (164 lb 12.8 oz) 06/16/2024 2:13 PM EST Height - - Body Mass Index 30.14 05/26/2024 10:14 AM EDT documented in this encounter Progress Notes * Jud Grey CRNP - 06/16/2024 2:19 PM EST 33w5d Baby is very active. Not having ctx, leaking/bleeding. Labor instructions provided. Broke a rib when moving a certain way, saw PCP. Managing with pain. Discussed childbirth classes, choosing a extrusion die template maker. Discussed EPDS - pt feeling more depressed, not sure why. Had stopped Lamictal at start of due to concern for defects. Sees therapist 2x/month. Discussed that organogenesis is complete, can restart Lamictal if helpful. She is happy to hear this; encouraged to discuss restarting withthe prescribing provider. 2 week return RADHA Jessica [place] Depression Scale: [place] Depression Scale Total: 22 Cleveland suicide question and score: Score of 3 = Yes, quite often. Score of 2 = Sometimes. Score of 1 = Hardly ever The thought of harming myself has occurred to me.: 0 documented in this encounter Plan of Treatment Upcoming Encounters Date Type Department Care Team (Late st Contact Info) Description 06/30/2024 10:45 AM EST Office Visit Gynecology/Obstetrics [facility] [address] [place] [phone] Aury Freeman CRNP [address] [place] [address] 08/16/2024 3:00 PM EST Telemedicine Psychiatry Kong Hennessy [address] [place] [phone] Emma West MD [address] [place] [phone] 03/09/2025 4:00 PM EDT Office Visit [facility] [address] [facility] [place] [phone] Seven Guerrero MD [address] [id number] Health Maintenance Due Date Last Done Comments [...] as of this encounter Visit Diagnoses Diagnosis Supervision of high risk , antepartum- Primary Bipolar disease during in third trimester (HCC) Tobacco smoking affecting in third trimester Herpes virus infection in mother during third trimester of Medication exposure during first trimester of Supervision of other high-risk Marijuana use during documented in this encounter Additional Health Concerns Active Problems Noted Date Diagnosed Date OB Reminders 04/20/2024 documented as of this encounter Care Teams Tax Clerk Relationship Specialty Start Date End Date December, Seven Neff MD [address] [place] [id number] PCP - General Family Medicine 02/24/23 documented as of this encounter
--- NOTE | 2024-06-19 17:14 | Emergency Department Note ---
Impression & Plan Vomiting, , Hematemesis ED Provider Note NAME: ITALO SNOW AGE: 29 SEX: F : 1995 ARRIVES VIA: Walk-In INFORMANT: Patient ED PROVIDER(S): Iam Mclaughlin DO CHIEF COMPLAINT: vomiting HPI: Patient is a 29-year-old female who presents to the ER for nausea and vomiting. 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 She notes symptoms started earlier today. She has been unable to keep anything down. Denies any headache or change in vision. No cough or congestion but admits to a runny nose just with the vomiting. No dysuria, urgency, or frequency. She admits to an uncomfortable feeling throughout her entire belly but no focal pain. She denies any contractions. No vaginal bleeding or vaginal discharge. She is still feeling the child moved. No sick contacts that she is aware of. ADDITIONAL HISTORY OBTAINED: Per HPI Chronic Medical/Social Conditions Affecting Care: Per HPI PAST MEDICAL HISTORY:See Below PAST SURGICAL HISTORY:See Below FAMILY HISTORY:See Below SOCIAL HISTORY:See Below HOME MEDICATIONS:See Below ALLERGIES:See Below VITALS:See Below PHYSICAL EXAMINATION: GENERAL: Sitting up in bed, alert, intermittently dry heaving EYE EXAM: normal conjunctiva. PERRL and EOM's grossly intact. OROPHARYNX: mucous membranes are dry NECK: supple, no nuchal rigidity, no adenopathy, non-tender LUNGS: Clear to auscultation. Normal chest wall mechanics HEART: no murmurs, S1 normal and S2 normal ABDOMEN: abdomen soft, non-tender, normo-active bowel sounds, gravid uterus to xiphoid process UPPER EXTREMITIES: upper extremities are grossly normal. LOWER EXTREMITIES: No pitting edema. NEURO EXAM: Normal sensorium, cranial nerves II-XII grossly intact, normal speech, no gross weakness of arms, no gross weakness of legs. MEDICAL DECISION MAKING: Patient is a 29-year-old female G1, P0 at 34 weeks and 1 day who presents to the ER for vomiting. This started earlier today. Just prior to arrival close the vomit had changed and become dark red. They deny any blood thinners. She admits her belly feels uncomfortable throughout but no focal pain. Labs show leukocytosis 17,000. No significant anemia. BMP with a slightly low CO2 at 19. LFTs and bilirubin was unremarkable. Mag was normal. Lipase was normal. UA resulted after admission showed small bowel bacteria but no obvious infection as it was contaminated. External records were reviewed which did show gallbladder with cholelithiasis previously on 06/12/2024. Patient has no pain in the right upper quadrant at this time. She has a benign belly. heart rate was 140s. Discussed with OB and they note they will evaluate the patient here in the ER. Discussed case with gastroenterology Dr. Stallings and he was in agreement with admission and observation. Patient was placed on a Protonix drip and bolus. I discussed case with the hospitalist for further evaluation management treatment. Repeat abdominal exam was benign. Will hold on any imaging at this time. Consults/Care Managements Discussions: Per [facility] Triage Nursing notes reviewed. Limited review of prior medical records performed Vital Signs: reviewed and remarkable for no significant abnormalities Differential diagnosis: Differential diagnoses includes but is not limited to gastritis, peptic ulcer disease, GERD, gallbladder disease, pancreatitis, small bowel obstruction, appendicitis, diverticulitis, hernia, urinary tract infection, torsion, /ectopic (if female), perforation, trauma, infectious. ER treatment provided: See below Diagnostics interpreted by me include EKG and cardiac monitoring as listed below: -Cardiac Monitoring: An order was placed for continuous cardiac monitoring. The monitor shows a rate of 60 with sinus rhythm. -ECG: none -Laboratory studies:Interpreted by me as stated above in MDM and shown below. Imaging studies: Xrays: As interpreted by me:none CTs show: none Procedures:none Critical Care: None Past Med/Surg History Problem List (Updated 06/19/24 @ 21:56 by Iam Mclaughlin DO) Hematemesis (Acute) (Acute) Vomiting (Acute) (Acute) RUQ abdominal pain (Acute) SOB (shortness of breath) (Acute) Closed rib fracture (Acute) Medical History PTSD (post-traumatic stress disorder) Bipolar 1 disorder Cyclic vomiting syndrome Scoliosis History of drug abuse clean since 02/2021 Depression Anxiety Acid reflux Marijuana use medical marijuana for anxiety/ depression Surgical History History of open reduction and internal fixation (ORIF) procedure left elbow Hx of tooth extraction Family History Other No family history of adverse response to anesthesia Social History Smoking Status: Current every day smoker Tobacco Type: E-cigarettes / Vaping Cigarettes Per Day: 20 per day- advised; Second Hand Exposure: No; Do You Dip or Chew Tobacco: No; Hx Alcohol Use: No Hx Substance Use: Yes (current medical marijuana use-advised) Last Used Substance Other:: 08/04 Substance Use Type Other:: former opiate addiction- clean since 2020 Preferred Language: Ghanaian Communication Ability: Effective Metal Die Finisher Required: No Beliefs That Will Affect Care: None Current Living Situation: Parent and Family Feels Safe at Home: Yes Assistive Devices: Contacts, Denture - Upper, Denture - Lower and Glasses Allergies Allergies Allergy/AdvReac Type Severity Reaction Status Date / Time No Known Allergies Allergy Verified 06/19/24 19:30 Home Meds Home Medications Medication Instructions Recorded Confirmed omeprazole 40 mg capsule,delayed 40 mg PO BID 01/26/23 06/19/24 release aripiprazole 15 mg tablet 15 mg PO QAM 01/11/24 06/19/24 escitalopram oxalate 20 mg tablet 20 mg PO QAM 01/11/24 06/19/24 gabapentin 100 mg capsule 100 mg PO TID PRN Pain 01/11/24 06/19/24 vit no.95-ferrous 1 tab PO DAILY 01/11/24 06/19/24 fumarate 28 mg-folic acid 800 mcg tablet () oxycodone 5 mg tablet 5 mg PO Q6H PRN Pain 06/19/24 06/19/24 Previous Rx's Medication Instructions Recorded ondansetron 4 mg disintegrating 4 mg PO Q6H PRN nausea and 01/11/24 tablet vomiting #10 tabs promethazine 25 mg tablet 25 mg PO Q6H PRN nausea and 01/11/24 vomiting #12 tabs Results & Data (ED) Vital Signs Vital Signs - 24 hr 06/19/24 17:01 06/19/24 17:05 06/19/24 17:50 Temperature 36.8 C Temperature Source Temporal Artery Scan Pulse Rate 57 L 75 Pulse Rate [Apical] Pulse Rhythm [Apical] Pulse Strength [Apical] Respiratory Rate 20 Respiratory Effort / Characteristics Respiratory Depth Respiratory Pattern Blood Pressure 124/71 Blood Pressure [Left Arm] Blood Pressure Mean 88 Blood Pressure Mean [Left Arm] Blood Pressure Position [Left Arm] Pulse Oximetry 98 96 Oxygen Delivery Method Room Air Sepsis Recent Fever Within 48 Hours No Sepsis New/Unexplained Change in Mental Status N/A Sepsis Action Taken by Nursing No Action Required 06/19/24 17:52 06/19/24 19:07 06/19/24 21:00 Temperature Temperature Source Pulse Rate Pulse Rate [Apical] 67 69 58 L Pulse Rhythm [Apical] Regular Regular Pulse Strength [Apical] Normal Normal Respiratory Rate 18 14 17 Respiratory Effort / Characteristics Non-Labored Non-Labored Respiratory Depth Normal Normal Respiratory Pattern Regular Regular Blood Pressure Blood Pressure [Left Arm] 117/76 123/68 118/69 Blood Pressure Mean Blood Pressure Mean [Left Arm] 89 86 85 Blood Pressure Position [Left Arm] Left Lateral Right Lateral Pulse Oximetry 98 97 97 Oxygen Delivery Method Room Air Sepsis Recent Fever Within 48 Hours Sepsis New/Unexplained Change in Mental Status Sepsis Action Taken by Nursing Laboratory Data 06/19/24 17:19 06/19/24 17:19 Lab Results 06/19/24 06/19/24 Range/Units 17:19 19:30 WBC 17.09 H (4.8-10.8) K/ul RBC 4.55 (4.20-5.40) M/uL Hgb 13.4 (12.0-16.0) g/dl Hct 38.9 (37.0-47.0) % MCV 85.5 (80.0-100.0) fL MCH 29.5 (25.0-34.0) pg MCHC 34.4 (32.0-36.0) g/dL RDW Std Deviation 41.4 (36.4-46.3) fL RDW Coeff of Ranjit 13.2 (11.5-14.5) % Plt Count 478 H (130-400) K/uL MPV 10.4 (9.4-12.4) fL Immature Gran % (Auto) 1.6 % Neut % (Auto) 84.0 % Lymph % (Auto) 11.9 % Custer % (Auto) 2.0 % Eos % (Auto) 0.0 % Baso % (Auto) 0.5 % Neut # (Auto) 14.36 H (1.40-6.50) K/uL Lymph # (Auto) 2.03 (1.20-3.40) K/uL Custer # (Auto) 0.34 (0.11-0.59) K/uL Eos # (Auto) 0.00 (0.00-0.50) K/uL Baso # (Auto) 0.09 (0.00-0.20) K/uL Immature Gran # (Auto) 0.27 H (0.01-0.20) K/uL Sodium 137 (136-145) mmol/L Potassium 4.0 (3.5-5.1) mmol/L Chloride 104 (98-107) mmol/L Carbon Dioxide 19 L (21-32) mmol/L Anion Gap 14 H (3-11) BUN 12 (6-23) mg/dl Creatinine 0.74 (0.6-1.2) mg/dl Est Cr Clr Drug Dosing Not Reportable eGFR 111.55 BUN/Creatinine Ratio 16.2 (10-20) Glucose 85 (70-99(Fasting)) mg/dl Calcium 9.8 (8.6-10.3) mg/dl Magnesium 1.7 (1.7-2.4) mg/dl Total Bilirubin 0.5 (0.2-1.0) mg/dl AST 22 (13-39) U/L ALT 19 (7-52) U/L Alkaline Phosphatase 580 H (34-104) U/L Total Protein 7.4 (6.0-8.3) gm/dl Albumin 4.0 (3.4-5.0) gm/dl Globulin 3.4 (2.5-4.0) gm/dl Albumin/Globulin Ratio 1.2 (0.9-2) Lipase 36 (11-82) U/L Urine Color Dark Yellow Urine Appearance Clear (Clear) Urine pH 6.5 (4.5-7.5) Ur Specific Almond 1.025 (1.000-1.030) Urine Protein 1+ H (Negative) Urine Glucose (UA) Negative (Negative) Urine Ketones 3+ H (Negative) Urine Blood Negative (Negative) Urine Nitrite Negative (Negative) Urine Bilirubin Negative (Negative) Urine Urobilinogen Negative (Negative) Ur Leukocyte Esterase Negative (Negative) Urine WBC (Auto) 0-5 (0-5) /hpf Urine RBC (Auto) 0-2 (0-2) /hpf U Hyaline Cast (Auto) 3-5 H (0-2) /lpf U Epithel Cells (Auto) 6-10 H (0-2) /hpf Urine Bacteria (Auto) 1+ H (None Seen) Administered Medications Pantoprazole Sodium 40 mg/ (Dextrose) 100 mls @ 20 mls/hr IV Q5H REINIER Stop: 07/19/24 19:14 Last Admin: 06/19/24 19:39 Dose: 8 mg/hr, 20 mls/hr Documented By: KAMALA Lactated Ringer's (Lr) 1,000 mls @ 75 mls/hr IV .[id number] ONE Stop: 06/20/24 09:47 Last Admin: 06/19/24 20:37 Dose: 75 mls/hr Documented By: KAMALA Discontinued Medications Sodium Chloride (Nss) 1,000 mls @ 999 mls/hr IV .[id number] REINIER Stop: 06/19/24 19:15 Last Infusion: 06/19/24 19:21 Dose: Infused Documented By: Admin: 06/19/24 18:20 Dose: 999 mls/hr Documented By: Infusion: 06/19/24 18:20 Dose: Infused Documented By: Admin: 06/19/24 17:26 Dose: 999 mls/hr Documented By: LUX Promethazine HCl (Phenergan) 25 mg in 51 mls @ 204 mls/hr IV NOW STA Stop: 06/19/24 17:25 Last Infusion: 06/19/24 18:16 Dose: Infused Documented By: Admin: 06/19/24 17:26 Dose: 204 mls/hr Documented By: LUX Pantoprazole Sodium 80 mg/ (Dextrose) 120 mls @ 480 mls/hr IV NOW ONE Stop: 06/19/24 19:08 Last Infusion: 06/19/24 19:30 Dose: Infused Documented By: Admin: 06/19/24 19:15 Dose: 480 mls/hr Documented By: KAMALA Metoclopramide HCl (Metoclopramide Hcl Inj 5 Mg/Ml 2 Ml Vial) 10 mg IV NOW STA Stop: 06/19/24 18:55 Last Admin: 06/19/24 19:01 Dose: 10 mg Documented By: KAMALA Ondansetron HCl (Ondansetron Inj 2 Mg/Ml 2 Ml Vial) 4 mg IV NOW STA Stop: 06/19/24 19:27 Last Admin: 06/19/24 19:55 Dose: 4 mg Documented By: KAMALA Pantoprazole Sodium (Pantoprazole Bolus/Drip) 1 each IV NOW STA Stop: 06/19/24 18:55 Last Admin: 06/19/24 19:15 Dose: Not Given Documented By: KAMALA Discharge Plan Visit Data Chief Complaint: Vomiting Stated Complaint: VOMITING, ABD PAIN, 34 WEEKS PREG, L/D SAID ER 1ST ED Provider: Iam Mclaughlin Discharge Problem: Vomiting, , Hematemesis Forms Stand Alone Forms: [facility] SumUp Prescriptions Prescriptions: No Action omeprazole 40 mg capsule,delayed release(DR/EC) 40 mg PO BID gabapentin 100 mg capsule 100 mg PO TID PRN (Reason: Pain) escitalopram oxalate 20 mg tablet 20 mg PO QAM aripiprazole 15 mg tablet 15 mg PO QAM PNV cmb#95-ferrous fumarate-FA [] 28 mg iron- 800 mcg tablet 1 tab PO DAILY promethazine 25 mg tablet 25 mg PO Q6H PRN (Reason: nausea and vomiting) Qty: 12 0RF ondansetron 4 mg tablet,disintegrating 4 mg PO Q6H PRN (Reason: nausea and vomiting) Qty: 10 0RF oxycodone 5 mg Tablet 5 mg PO Q6H PRN (Reason: Pain) Referrals Referrals: Seven Guerrero MD [Primary Care Provider] - Discharge Problem: Vomiting Qualifiers: Vomiting type: unspecified Nausea presence: unspecified Qualified Code(s): R 11.10 - Vomiting, unspecified Qualifiers: Weeks of gestation: 34 weeks Qualified Code(s): Z3A.34 - 34 weeks gestation of Hematemesis Qualifiers: Nausea presence: with nausea Qualified Code(s): K92.0 - Hematemesis
[2024-06-19] MEDS: SODIUM CHLORIDE 0.9% 1,000 ML IV SCH (17:26)
[2024-06-19] MEDS: PROMETHAZINE 25 MG/51 ML BAG IV STA (17:26)
[2024-06-19 17:36] LABS: Basophils # (auto) 0.09 K/uL (0.00-0.20); Basophils % (auto) 0.5 %; Hematocrit (blood only) 38.9 % (37.0-47.0); Hemoglobin 13.4 g/dl (12.0-16.0); Immature Granulocytes # (auto) 0.27 K/uL (0.01-0.20); Immature Granulocytes % (auto) 1.6 %; Lymphocytes # (auto) 2.03 K/uL (1.20-3.40); Lymphocytes % (auto) 11.9 %; Mean Corpuscular Hemoglobin 29.5 pg (25.0-34.0); Mean Corpuscular Hgb Conc 34.4 g/dL (32.0-36.0); Mean Corpuscular Volume 85.5 fL (80.0-100.0); Mean Platelet Volume 10.4 fL (9.4-12.4); Monocytes # (auto) 0.34 K/uL (0.11-0.59); Neutrophils # (auto) 14.36 K/uL (1.40-6.50); Platelet Count 478 K/uL (130-400); RDW Coefficient of Variation 13.2 % (11.5-14.5); RDW Standard Deviation 41.4 fL (36.4-46.3); Red Blood Count 4.55 M/uL (4.20-5.40); White Blood Count 17.09 K/ul (4.8-10.8)
[2024-06-19 17:56] LABS: Alanine Aminotransferase 19 U/L (7-52); Albumin Globulin Ratio 1.2 (0.9-2); Alkaline Phosphatase 580 U/L (34-104); Anion Gap 14 (3-11); Aspartate Aminotransferase 22 U/L (13-39); BUN Creatinine Ratio 16.2 (10-20); Bilirubin,Total 0.5 mg/dl (0.2-1.0); Blood Urea Nitrogen 12 mg/dl (6-23); Calcium 9.8 mg/dl (8.6-10.3); Carbon Dioxide 19 mmol/L (21-32); Chloride 104 mmol/L (98-107); Globulin 3.4 gm/dl (2.5-4.0); Glucose 85 mg/dl (70-99(Fasting)); Lipase 36 U/L (11-82); Sodium 137 mmol/L (136-145); Total Protein 7.4 gm/dl (6.0-8.3)
[2024-06-19] MEDS: METOCLOPRAMIDE HCL INJ 5 MG/ML 2 ML VIAL IV STA (19:01)
[2024-06-19] MEDS: PANTOPRAZOLE BOLUS/DRIP IV STA (19:15)
[2024-06-19] MEDS: PANTOprazole 80 MG in DEXTROSE 5% 100 ML IV ONE (19:15)
[2024-06-19] MEDS: PANTOprazole 40 MG in DEXTROSE 5% MINI-B 100 ML IV SCH (19:39)
[2024-06-19 19:45] LABS: Appearance Urine Clear (Clear); Bacteria Urine Automated 1+ (None Seen); Bilirubin Urine Negative (Negative); Blood Urine Negative (Negative); Color Urine Dark Yellow; Glucose Urine UA Negative (Negative); Ketones Urine 3+ (Negative); Leukocyte Esterase Urine Negative (Negative); Nitrite Urine Negative (Negative); Protein Urine 1+ (Negative); RBC Urine Automated 0-2 /hpf (0-2); Specific Gravity Urine 1.025 (1.000-1.030); Urobilinogen Urine Negative (Negative); WBC Urine Automated 0-5 /hpf (0-5); pH Urine 6.5 (4.5-7.5)
[2024-06-19] MEDS: ONDANSETRON INJ 2 MG/ML 2 ML VIAL IV STA (19:55)
[2024-06-19 20:27] LABS: Magnesium 1.7 mg/dl (1.7-2.4)
[2024-06-19] MEDS: LACTATED RINGER'S 1,000 ML IV ONE (20:37)
--- NOTE | 2024-06-19 20:52 | History & Physical Report ---
Date of Service June 19, 2024 Assessment & Plan (1) UGIB (upper gastrointestinal bleed): Plan: Worsening GERD secondary to Patient currently hemodynamically stable. Abdominal pain secondary to above Progressive increase in alk phos levels Rule out cholecystitis, biliary obstruction, history of cholelithiasis on imaging last week mood disorder, at baseline polysubstance abuse as per records Recent right rib fracture ongoing tobacco abuse OBS Medical telemetry IV PPI GI consult re: UGIB (ED provider already in touch with Dr. Stallings.) N.p.o. until patient seen by GI Repeat gallbladder ultrasound Follow H&H, transfuse PRBC if hemoglobin less than 7 and or for symptomatic anemia OB consult re: eval (ED provider already in touch with Dr. Hill.) Nicotine replacement therapy as needed DVT prophylaxis. SCDs re: GI bleed Full code Text document was generated using [employer] voice recognition software. It may contain grammatical or spelling errors. Kindly contact undersigned for clarification of any documentation item in question. History of Present Illness Chief Complaint: Hematemesis Primary Care Provider: Seven Guerrero MD History obtained from patient, family, and records. Medical history significant for GERD, cholelithiasis, mood disorder, p olysubstance abuse as per records, right rib fracture, ongoing tobacco abuse. Patient currently 34 weeks AOG. 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 Recent ER visit last week for right-sided rib and back pain of 1 week duration. Right-sided rib fracture on imaging. Gallstones on RUQ ultrasound. Patient discharged home on analgesic regimen. Patient with worsening epigastric discomfort the last few weeks. Denies inordinate OTC NSAID intake. PCP added sucralfate to patient's omeprazole and famotidine home medications. Today, patient had hematemesis and worsening abdominal discomfort. Denies chest pain, SOB. Patient brought to ER for evaluation by partner. IV Protonix administered at the ER. Medical History as above 2022 EGD was unremarkable Surgical History : Dental surgery, elbow surgery Family History : Alcoholism, breast cancer, DM, stroke, mental illness Personal/Social history : Few cigarettes a day, no EtOH intake, caregiver Allergies Allergy/AdvReac Type Severity Reaction Status Date / Time No Known Allergies Allergy Verified 06/19/24 19:30 Home Medications Medication Instructions Recorded Confirmed Type omeprazole 40 mg capsule,delayed 40 mg PO BID 01/26/23 06/19/24 History release aripiprazole 15 mg tablet 15 mg PO QAM 01/11/24 06/19/24 History escitalopram oxalate 20 mg tablet 20 mg PO QAM 01/11/24 06/19/24 History gabapentin 100 mg capsule 100 mg PO TID PRN Pain 01/11/24 06/19/24 History ondansetron 4 mg disintegrating 4 mg PO Q6H PRN nausea and 01/11/24 06/19/24 Rx tablet vomiting #10 tabs vit no.95-ferrous 1 tab PO DAILY 01/11/24 06/19/24 History fumarate 28 mg-folic acid 800 mcg tablet () promethazine 25 mg tablet 25 mg PO Q6H PRN nausea and 01/11/24 06/19/24 Rx vomiting #12 tabs oxycodone 5 mg tablet 5 mg PO Q6H PRN Pain 06/19/24 06/19/24 History famotidine 40 mg tablet 40 mg PO BID 06/20/24 06/20/24 History Past Med/Surg History Problem List (Updated 06/20/24 @ 02:42 by Kieran Carlos MD) UGIB (upper gastrointestinal bleed) with 34 completed weeks gestation Hematemesis (Acute) (Acute) Vomiting (Acute) (Acute) RUQ abdominal pain (Acute) SOB (shortness of breath) (Acute) Closed rib fracture (Acute) Medical History PTSD (post-traumatic stress disorder) Bipolar 1 disorder Cyclic vomiting syndrome Scoliosis History of drug abuse clean since 02/2021 Depression Anxiety Acid reflux Marijuana use medical marijuana for anxiety/ depression Surgical History History of open reduction and internal fixation (ORIF) procedure left elbow Hx of tooth extraction Family History Other No family history of adverse response to anesthesia Social History Smoking Status: Current every day smoker Tobacco Type: Cigarettes Cigarettes Per Day: 20 per day- advised; Second Hand Exposure: Yes; Do You Dip or Chew Tobacco: No; Hx Alcohol Use: No Hx Substance Use: Yes Last Used Substance Other:: 08/04 Substance Use Type Other:: former opiate addiction- clean since 2020 Preferred Language: Urdu Communication Ability: Effective Litigation Claim Representative Required: No Beliefs That Will Affect Care: None Current Living Situation: Parent and Family Other Information That Helps Us Care for You: No Feels Safe at Home: Yes Safety Concerns: Feels Safe At This Time Assistive Devices: Denture - Upper and Denture - Lower Review of Systems Review of Systems: As per HPI, all other systems reviewed and negative Physical Exam Physical Exam: GENERAL: uncomfortable, lying down on left lateral decubitus position, no respiratory distress SKIN: Normal color, warm HEENT: [place] palpebral conjunctivae, no ptosis, dry buccal mucosa NECK : Supple, no tenderness CHEST : CTA, no tenderness HEART : Bradycardic, no obvious murmurs ABDOMEN: Some distention, epigastric tenderness EXTREMITIES : No LE swelling/tenderness, no other conspicuous deformities noted NEUROLOGIC : Coherent, no facial asymmetry, no other gross focality Results & Data Results & Data Vital Signs (Past 12 Hours) Vital Signs Temp Pulse Pulse Resp BP BP Pulse Ox 06/19/24 19:07 69 14 123/68 97 06/19/24 17:52 67 18 117/76 98 06/19/24 17:50 75 06/19/24 17:05 96 06/19/24 17:01 36.8 C 57 L 20 124/71 98 O2 Del Method 06/19/24 19:07 Room Air 06/19/24 17:52 06/19/24 17:50 06/19/24 17:05 06/19/24 17:01 Room Air Laboratory Results Laboratory Results WBC 17.09 K/ul (4.8-10.8) H 06/19/24 17:19 RBC 4.55 M/uL (4.20-5.40) 06/19/24 17:19 Hgb 13.4 g/dl (12.0-16.0) 06/19/24 17:19 Hct 38.9 % (37.0-47.0) 06/19/24 17:19 MCV 85.5 fL (80.0-100.0) 06/19/24 17:19 MCH 29.5 pg (25.0-34.0) 06/19/24 17:19 MCHC 34.4 g/dL (32.0-36.0) 06/19/24 17:19 RDW Std Deviation 41.4 fL (36.4-46.3) 06/19/24 17:19 RDW Coeff of Ranjit 13.2 % (11.5-14.5) 06/19/24 17:19 Plt Count 478 K/uL (130-400) H 06/19/24 17:19 MPV 10.4 fL (9.4-12.4) 06/19/24 17:19 Immature Gran % (Auto) 1.6 % 06/19/24 17:19 Neut % (Auto) 84.0 % 06/19/24 17:19 Lymph % (Auto) 11.9 % 06/19/24 17:19 [place] % (Auto) 2.0 % 06/19/24 17:19 Eos % (Auto) 0.0 % 06/19/24 17:19 Baso % (Auto) 0.5 % 06/19/24 17:19 Neut # (Auto) 14.36 K/uL (1.40-6.50) H 06/19/24 17:19 Lymph # (Auto) 2.03 K/uL (1.20-3.40) 06/19/24 17:19 [place] # (Auto) 0.34 K/uL (0.11-0.59) 06/19/24 17:19 Eos # (Auto) 0.00 K/uL (0.00-0.50) 06/19/24 17:19 Baso # (Auto) 0.09 K/uL (0.00-0.20) 06/19/24 17:19 Immature Gran # (Auto) 0.27 K/uL (0.01-0.20) H 06/19/24 17:19 Sodium 137 mmol/L (136-145) 06/19/24 17:19 Potassium 4.0 mmol/L (3.5-5.1) 06/19/24 17:19 Chloride 104 mmol/L (98-107) 06/19/24 17:19 Carbon Dioxide 19 mmol/L (21-32) L 06/19/24 17:19 Anion Gap 14 (3-11) H 06/19/24 17:19 BUN 12 mg/dl (6-23) 06/19/24 17:19 Creatinine 0.74 mg/dl (0.6-1.2) 06/19/24 17:19 Est Cr Clr Drug Dosing Not Reportable 06/19/24 17:19 eGFR 111.55 06/19/24 17:19 BUN/Creatinine Ratio 16.2 (10-20) 06/19/24 17:19 Glucose 85 mg/dl (70-99(Fasting)) 06/19/24 17:19 Calcium 9.8 mg/dl (8.6-10.3) 06/19/24 17:19 Magnesium 1.7 mg/dl (1.7-2.4) 06/19/24 17:19 Total Bilirubin 0.5 mg/dl (0.2-1.0) 06/19/24 17:19 AST 22 U/L (13-39) 06/19/24 17:19 ALT 19 U/L (7-52) 06/19/24 17:19 Alkaline Phosphatase 580 U/L (34-104) H 06/19/24 17:19 Total Protein 7.4 gm/dl (6.0-8.3) 06/19/24 17:19 Albumin 4.0 gm/dl (3.4-5.0) 06/19/24 17:19 Globulin 3.4 gm/dl (2.5-4.0) 06/19/24 17:19 Albumin/Globulin Ratio 1.2 (0.9-2) 06/19/24 17:19 Lipase 36 U/L (11-82) 06/19/24 17:19 Urine Color Dark Yellow 06/19/24 19:30 Urine Appearance Clear (Clear) 06/19/24 19:30 Urine pH 6.5 (4.5-7.5) 06/19/24 19:30 Ur Specific [place] 1.025 (1.000-1.030) 06/19/24 19:30 Urine Protein 1+ (Negative) H 06/19/24 19:30 Urine Glucose (UA) Negative (Negative) 06/19/24 19:30 Urine Ketones 3+ (Negative) H 06/19/24 19:30 Urine Blood Negative (Negative) 06/19/24 19:30 Urine Nitrite Negative (Negative) 06/19/24 19:30 Urine Bilirubin Negative (Negative) 06/19/24 19:30 Urine Urobilinogen Negative (Negative) 06/19/24 19:30 Ur Leukocyte Esterase Negative (Negative) 06/19/24 19:30 Urine WBC (Auto) 0-5 /hpf (0-5) 06/19/24 19:30 Urine RBC (Auto) 0-2 /hpf (0-2) 06/19/24 19:30 U Hyaline Cast (Auto) 3-5 /lpf (0-2) H 06/19/24 19:30 U Epithel Cells (Auto) 6-10 /hpf (0-2) H 06/19/24 19:30 Urine Bacteria (Auto) 1+ (None Seen) H 06/19/24 19:30
[2024-06-19 21:59] LABS: Hematocrit (blood only) 34.8 % (37.0-47.0); Hemoglobin 11.7 g/dl (12.0-16.0)
[2024-06-19 22:06] LABS: Amphetamines+Metham, Urine Neg (Neg); Barbiturates, Urine Neg (Neg); Benzodiazepine, Urine Neg (Neg); Cocaine, Urine Neg (Neg); Fentanyl, Urine Neg (Neg); MDMA (Ecstacy), Urine Pos (Neg); Marijuana, Urine Pos (Neg); Methadone, Urine Neg (Neg); Opiate, Urine Neg (Neg); Phencyclidine, Urine Neg (Neg)
[2024-06-19] MEDS: ACETAMINOPHEN 325 MG TAB PO PRN (22:52)
[2024-06-19] MEDS: oxyCODONE HCL IR 5 MG TAB (IMMEDIATE RELEASE) PO PRN (22:53)
[2024-06-19] MEDS: PROMETHAZINE 6.25 MG/50.25 ML BAG IV PRN (23:07)
[2024-06-20] MEDS: D5W AND LACTATED RINGERS 1,000 ML IV ONE (00:02)
--- NOTE | 2024-06-20 00:08 | OB/GYN Consultation ---
Date of Consultation June 20, 2024 Assessment & Plan (1) Hematemesis: (2) Vomiting: (3) PTSD (post-traumatic stress disorder): (4) Bipolar 1 disorder: (5) Cyclic vomiting syndrome: (6) History of drug abuse: (7) Depression: (8) Acid reflux: (9) Marijuana use: (10) with 34 completed weeks gestation: 29 yo at 34.2 wks admitted with above FHR reassuring, NST reactive, no signs of labor Dehydrated with ketonuria Recommend IVF with dextrose and start small sips of clears as tolerated NST q shift US for growth in am Continue to monitor closely History of Present Illness Attending Physician: Jose Norman MD History of Present Illness Patient is a 29 yo at 34.2 wks who is admitted for N&V, Bloody emesis She had h/o GERD prior to which worsened with persistent N&V She is found to have Ketonuria and started on IVF, IV Protonix, antiemetics by medical team. Her is high risk due to: 1) Bipolar disease during (HCC) (Chronic) 2) Tobacco smoking complicating 3) Herpes infection in : Suppression at 36 wks 4) Medication exposure during first trimester of : medication exposure to Lamictal and Lexapro for bipolar disorder, Stopped with knowledge of the 5) Marijuana use during She denies ctxs/ LOF/VB Report good FM's NST reactive, 120 baseline, accelerations present, no decelerations, moderate variability, audible FM's, kicks heard. No contractions on monitor Allergies Allergy/AdvReac Type Severity Reaction Status Date / Time No Known Allergies Allergy Verified 06/19/24 19:30 Home Medications Medication Instructions Recorded Confirmed Type omeprazole 40 mg capsule,delayed 40 mg PO BID 01/26/23 06/19/24 History release aripiprazole 15 mg tablet 15 mg PO QAM 01/11/24 06/19/24 History escitalopram oxalate 20 mg tablet 20 mg PO QAM 01/11/24 06/19/24 History gabapentin 100 mg capsule 100 mg PO TID PRN Pain 01/11/24 06/19/24 History ondansetron 4 mg disintegrating 4 mg PO Q6H PRN nausea and 01/11/24 06/19/24 Rx tablet vomiting #10 tabs vit no.95-ferrous 1 tab PO DAILY 01/11/24 06/19/24 History fumarate 28 mg-folic acid 800 mcg tablet () promethazine 25 mg tablet 25 mg PO Q6H PRN nausea and 01/11/24 06/19/24 Rx vomiting #12 tabs oxycodone 5 mg tablet 5 mg PO Q6H PRN Pain 06/19/24 06/19/24 History Patient History Medical History PTSD (post-traumatic stress disorder) Bipolar 1 disorder Cyclic vomiting syndrome Scoliosis History of drug abuse clean since 02/2021 Depression Anxiety Acid reflux Marijuana use medical marijuana for anxiety/ depression Surgical History History of open reduction and internal fixation (ORIF) procedure left elbow Hx of tooth extraction Family History Other No family history of adverse response to anesthesia Social History Smoking Status: Current every day smoker Tobacco Type: Cigarettes Cigarettes Per Day: 20 per day- advised; Second Hand Exposure: Yes; Do You Dip or Chew Tobacco: No; Hx Alcohol Use: No Hx Substance Use: Yes Last Used Substance Other:: 08/04 Substance Use Type Other:: former opiate addiction- clean since 2020 Preferred Language: Citizen Of [place] Communication Ability: Effective Digital Content Manager Required: No Beliefs That Will Affect Care: None Current Living Situation: Parent and Family Other Information That Helps Us Care for You: No Feels Safe at Home: Yes Safety Concerns: Feels Safe At This Time Assistive Devices: Denture - Upper and Denture - Lower Physical Exam Genitourinary: OB Exam Monitor Tracing: + external uterine monitor used (no contractions) and + category I Results & Data Vital Signs (Past 12 Hours) Vital Signs Temp Pulse Pulse Resp BP BP Pulse Ox 06/19/24 23:09 36.6 C 54 L 18 115/67 98 06/19/24 21:53 64 06/19/24 21:00 58 L 17 118/69 97 06/19/24 19:07 69 14 123/68 97 06/19/24 17:52 67 18 117/76 98 06/19/24 17:50 75 06/19/24 17:05 96 11/09/24 17:01 36.8 C 57 L 20 124/71 98 O2 Del Method 06/19/24 23:09 Room Air 06/19/24 21:53 06/19/24 21:00 06/19/24 19:07 Room Air 06/19/24 17:52 06/19/24 17:50 06/19/24 17:05 06/19/24 17:01 Room Air Laboratory Results Lab Results 06/19/24 06/19/24 06/19/24 Range/Units 17:19 19:30 21:21 WBC 17.09 H (4.8-10.8) K/ul RBC 4.55 (4.20-5.40) M/uL Hgb 13.4 11.7 L (12.0-16.0) g/dl Hct 38.9 34.8 L (37.0-47.0) % MCV 85.5 (80.0-100.0) fL MCH 29.5 (25.0-34.0) pg MCHC 34.4 (32.0-36.0) g/dL RDW Std Deviation 41.4 (36.4-46.3) fL RDW Coeff of Ranjit 13.2 (11.5-14.5) % Plt Count 478 H (130-400) K/uL MPV 10.4 (9.4-12.4) fL Immature Gran % (Auto) 1.6 % Neut % (Auto) 84.0 % Lymph % (Auto) 11.9 % [place] % (Auto) 2.0 % Eos % (Auto) 0.0 % Baso % (Auto) 0.5 % Neut # (Auto) 14.36 H (1.40-6.50) K/uL Lymph # (Auto) 2.03 (1.20-3.40) K/uL [place] # (Auto) 0.34 (0.11-0.59) K/uL Eos # (Auto) 0.00 (0.00-0.50) K/uL Baso # (Auto) 0.09 (0.00-0.20) K/uL Immature Gran # (Auto) 0.27 H (0.01-0.20) K/uL Sodium 137 (136-145) mmol/L Potassium 4.0 (3.5-5.1) mmol/L Chloride 104 (98-107) mmol/L Carbon Dioxide 19 L (21-32) mmol/L Anion Gap 14 H (3-11) BUN 12 (6-23) mg/dl Creatinine 0.74 (0.6-1.2) mg/dl Est Cr Clr Drug Dosing Not Reportable eGFR 111.55 BUN/Creatinine Ratio 16.2 (10-20) Glucose 85 (70-99(Fasting)) mg/dl Calcium 9.8 (8.6-10.3) mg/dl Magnesium 1.7 (1.7-2.4) mg/dl Total Bilirubin 0.5 (0.2-1.0) mg/dl AST 22 (13-39) U/L ALT 19 (7-52) U/L Alkaline Phosphatase 580 H (34-104) U/L Total Protein 7.4 (6.0-8.3) gm/dl Albumin 4.0 (3.4-5.0) gm/dl Globulin 3.4 (2.5-4.0) gm/dl Albumin/Globulin Ratio 1.2 (0.9-2) Lipase 36 (11-82) U/L Urine Color Dark Yellow Urine Appearance Clear (Clear) Urine pH 6.5 (4.5-7.5) Ur Specific [place] 1.025 (1.000-1.030) Urine Protein 1+ H (Negative) Urine Glucose (UA) Negative (Negative) Urine Ketones 3+ H (Negative) Urine Blood Negative (Negative) Urine Nitrite Negative (Negative) Urine Bilirubin Negative (Negative) Urine Urobilinogen Negative (Negative) Ur Leukocyte Esterase Negative (Negative) Urine WBC (Auto) 0-5 (0-5) /hpf Urine RBC (Auto) 0-2 (0-2) /hpf U Hyaline Cast (Auto) 3-5 H (0-2) /lpf U Epithel Cells (Auto) 6-10 H (0-2) /hpf Urine Bacteria (Auto) 1+ H (None Seen) Urine Opiates Screen (Neg) Ur Methadone, Qual (Neg) Urine Fentanyl Screen (Neg) Urine Barbiturates (Neg) Ur Phencyclidine (PCP) (Neg) U Amphetamin/Meth Scrn (Neg) MDMA (Ecstasy) Screen (Neg) U Benzodiazepines Scrn (Neg) Ur Cocaine Metabolite (Neg) U Marijuana (THC) Screen (Neg) Blood Type A Positive Antibody Screen NEGATIVE 06/19/24 Range/Units Unknown WBC (4.8-10.8) K/ul RBC (4.20-5.40) M/uL Hgb (12.0-16.0) g/dl Hct (37.0-47.0) % MCV (80.0-100.0) fL MCH (25.0-34.0) pg MCHC (32.0-36.0) g/dL RDW Std Deviation (36.4-46.3) fL RDW Coeff of Ranjit (11.5-14.5) % Plt Count (130-400) K/uL MPV (9.4-12.4) fL Immature Gran % (Auto) % Neut % (Auto) % Lymph % (Auto) % [place] % (Auto) % Eos % (Auto) % Baso % (Auto) % Neut # (Auto) (1.40-6.50) K/uL Lymph # (Auto) (1.20-3.40) K/uL [place] # (Auto) (0.11-0.59) K/uL Eos # (Auto) (0.00-0.50) K/uL Baso # (Auto) (0.00-0.20) K/uL Immature Gran # (Auto) (0.01-0.20) K/uL Sodium (136-145) mmol/L Potassium (3.5-5.1) mmol/L Chloride (98-107) mmol/L Carbon Dioxide (21-32) mmol/L Anion Gap (3-11) BUN (6-23) mg/dl Creatinine (0.6-1.2) mg/dl Est Cr Clr Drug Dosing eGFR BUN/Creatinine Ratio (10-20) Glucose (70-99(Fasting)) mg/dl Calcium (8.6-10.3) mg/dl Magnesium (1.7-2.4) mg/dl Total Bilirubin (0.2-1.0) mg/dl AST (13-39) U/L ALT (7-52) U/L Alkaline Phosphatase (34-104) U/L Total Protein (6.0-8.3) gm/dl Albumin (3.4-5.0) gm/dl Globulin (2.5-4.0) gm/dl Albumin/Globulin Ratio (0.9-2) Lipase (11-82) U/L Urine Color Urine Appearance (Clear) Urine pH (4.5-7.5) Ur Specific [place] (1.000-1.030) Urine Protein (Negative) Urine Glucose (UA) (Negative) Urine Ketones (Negative) Urine Blood (Negative) Urine Nitrite (Negative) Urine Bilirubin (Negative) Urine Urobilinogen (Negative) Ur Leukocyte Esterase (Negative) Urine WBC (Auto) (0-5) /hpf Urine RBC (Auto) (0-2) /hpf U Hyaline Cast (Auto) (0-2) /lpf U Epithel Cells (Auto) (0-2) /hpf Urine Bacteria (Auto) (None Seen) Urine Opiates Screen Neg (Neg) Ur Methadone, Qual Neg (Neg) Urine Fentanyl Screen Neg (Neg) Urine Barbiturates Neg (Neg) Ur Phencyclidine (PCP) Neg (Neg) U Amphetamin/Meth Scrn Neg (Neg) MDMA (Ecstasy) Screen Pos H (Neg) U Benzodiazepines Scrn Neg (Neg) Ur Cocaine Metabolite Neg (Neg) U Marijuana (THC) Screen Pos H (Neg) Blood Type Antibody Screen (1) Hematemesis Nausea presence: with nausea Qualified Code(s): K92.0 - Hematemesis (2) Vomiting Nausea presence: unspecified Vomiting type: unspecified Qualified Code(s): R11.10 - Vomiting, unspecified (7) Depression Depression Type: other depression Qualified Code(s): F32.89 - Other specified depressive episodes (8) Acid reflux Esophagitis bleeding: with hemorrhage Esophagitis presence: with esophagitis Qualified Code(s): K21.01 - Gastro-esophageal reflux disease with esophagitis, with bleeding
[2024-06-20] MEDS: PROMETHAZINE 6.25 MG/50.25 ML BAG IV STA (02:07)
[2024-06-20 03:06] LABS: Thyroid Stimulating Hormone 1.743 uIu/ml (0.300-4.500)
--- NOTE | 2024-06-20 03:08 | Ultrasound Report ---
EXAM: US gallbladder CLINICAL HISTORY: 7 months , vomitting. PANC non vis. LIVER 14 cm. GB stones and debris seen. Wall 0.27 cm. Negative murphys. CBD 0.4 cm RK No hydro INPATIENT TECHNIQUE: Limited ultrasound of RUQ was performed in greyscale and Doppler. Multiple images were obtained in transverse and longitudinal planes. COMPARISON: 06/12/2024. FINDINGS: Partially visualized gravid uterus. Liver: The liver measured about 14 cm in maximal craniocaudal dimension. The liver appears normal in size with homogeneous echotexture. No evidence of focal lesions, cysts, or masses. Hepatic vasculature appears normal. Gallbladder: The gallbladder is visualized and appears normal in size and shape. Multiple gallbladder stones. Level of debris/sludge is noted (new finding). No wall thickening (0.27, was 0.28 cm), or pericholecystic fluid noted. Negative Umanzor sign. No evidence of gallbladder wall edema or signs of acute cholecystitis. Biliary Tree: Common bile duct diameter: [35 mm, was 30 mm]. The common bile duct is within normal limits in caliber and not dilated. No evidence of choledocholithiasis or biliary obstruction. Right kidney is unremarkable. No hydronephrosis. IMPRESSION: 1. Stable cholelithiasis. No sonographic signs of acute cholecystitis. 2. Minimal interval increase of the common bile duct caliber and demonstration of gallbladder sludge level. Please correlate clinically to rule out cholestasis. Interval new. 3. Compared to prior study dated 06/12/2009/30/2023, no significant interval changes were noted apart from demonstration of gravid uterus and others as detailed above. Electronically signed by Fatoumata Nick 06-20-2024 03:08 AM
--- NOTE | 2024-06-20 03:36 | Ultrasound Report ---
EXAM: US OB limited CLINICAL HISTORY: Check growth and JORGE per doctor. . Vomiting Cervix limited, around 3.0 cm. Appears closed. Cephalic presentation. HR 147 bpm. Measuring 34w6d by biometrics. EFW 5lb9oz JORGE 21 cm, ?upper limits Normal anterior placenta. INPATIENT TECHNIQUE: Multiple ultrasound OB images were obtained through a transabdominal approach in a cope-scale and duplex. COMPARISON: None. FINDINGS: A single intrauterine gestational sac is seen with a normal pole in Cephalic presentation. The heart rate is 147 bpm. BPD: 8.51 cm. 34 weeks and 2 days. HC: 31.75 cm. 35 weeks and 5 days. AC: 31.06 cm. 35 weeks and 0 days FL: 6.66 cm. 34 weeks and 2 days. Gestational age: 34 weeks and 6 days 2 weeks and 3 days estimated date of delivery 07/26/2024. Expected weight 2520 Gram 378 Gram (5lb9oz). 60.2% percentile. Cervix: Limited visualization, approximately 3.0 cm in length, appearing closed. Placenta is anterior. The amniotic fluid index is 21 cm, which is within the normal range (normal JORGE: 5?25 cm). IMPRESSION: 1. Single live intrauterine with estimated gestational 34 weeks and 6 days 2 weeks and 3 days. The estimated gestational age is concordant with the expected interval growth. 2. Cephalic presentation. 3. The heart rate is 147 bpm. 4. The amniotic fluid index is 21 cm, which is within the normal range (normal JORGE: 5?25 cm). 5. There is no evidence of immediate concern, but continued monitoring is recommended. GREGORY by today's AUA exam, 07/26/2024. Disclaimer: anomalies may be present but not detected. Chromosomal abnormalities cannot be ruled out with certainty, even with the normal findings. Electronically signed by Fatoumata Nick 06-20-2024 03:36 AM
[2024-06-20] MEDS: ONDANSETRON INJ 2 MG/ML 2 ML VIAL IV STA (04:26)
--- NOTE | 2024-06-20 04:30 | Communication Note ---
Date of Service: June 20, 2024 Gallbladder ultrasound: 1. Stable cholelithiasis. No sonographic signs of acute cholecystitis. 2. Minimal interval increase of the common bile duct caliber and demonstration of gallbladder sludge level. Please correlate clinically to rule out cholestasis. Interval new. AP Abdominal pain, nausea, emesis Rule out biliary obstruction MRCP (OK w OB service)
[2024-06-20 06:31] LABS: Basophils # (auto) 0.05 K/uL (0.00-0.20); Basophils % (auto) 0.3 %; Eosinophils # (auto) 0.01 K/uL (0.00-0.50); Eosinophils % (auto) 0.1 %; Hemoglobin 11.3 g/dl (12.0-16.0); Immature Granulocytes # (auto) 0.32 K/uL (0.01-0.20); Immature Granulocytes % (auto) 1.7 %; Lymphocytes # (auto) 3.49 K/uL (1.20-3.40); Lymphocytes % (auto) 18.2 %; Mean Corpuscular Hemoglobin 29.5 pg (25.0-34.0); Mean Corpuscular Hgb Conc 34.2 g/dL (32.0-36.0); Mean Corpuscular Volume 86.2 fL (80.0-100.0); Mean Platelet Volume 10.6 fL (9.4-12.4); Monocytes # (auto) 0.83 K/uL (0.11-0.59); Monocytes % (auto) 4.3 %; Neutrophils # (auto) 14.51 K/uL (1.40-6.50); Neutrophils % (auto) 75.4 %; Nucleated RBC # (auto) 0.02 K/uL (0.00-0.12); Nucleated RBC % (auto) 0.1 %; Platelet Count 414 K/uL (130-400); RDW Coefficient of Variation 13.2 % (11.5-14.5); RDW Standard Deviation 41.3 fL (36.4-46.3); Red Blood Count 3.83 M/uL (4.20-5.40); White Blood Count 19.21 K/ul (4.8-10.8)
[2024-06-20 07:09] LABS: Albumin Globulin Ratio 1.1 (0.9-2); Albumin Level 3.3 gm/dl (3.4-5.0); Bilirubin,Total 0.4 mg/dl (0.2-1.0); Calcium 8.7 mg/dl (8.6-10.3); Creatinine Clr Calc Pharmacy 132.5 ml/min; Potassium 3.6 mmol/L (3.5-5.1); Total Protein 6.3 gm/dl (6.0-8.3)
--- NOTE | 2024-06-20 08:47 | Hospitalist Progress Note ---
Date of Service June 20, 2024 Assessment & Plan (1) UGIB (upper gastrointestinal bleed): Plan: Worsening GERD secondary to Patient currently hemodynamically stable. Abdominal pain secondary to above, now improved Progressive increase in alk phos levels likely secondary to - per GI Rule out cholecystitis, biliary obstruction, history of cholelithiasis on imaging last week Repeat gallbladder US Gallbladder: The gallbladder is visualized and appears normal in size and shape. Multiple gallbladder stones. Level of debris/sludge is noted (new finding). No wall thickening (0.27, was 0.28 cm), or pericholecystic fluid noted. Negative Umanzor sign. No evidence of gallbladder wall edema or signs of acute cholecystitis. No evidence of choledocholithiasis or biliary obstruction. IMPRESSION: 1. Stable cholelithiasis. No sonographic signs of acute cholecystitis. 2. Minimal interval increase of the common bile duct caliber and demonstration of gallbladder sludge level. Please correlate clinically to rule out cholestasis. Interval new. 3. Compared to prior study dated 06/12/2009/30/2023, no significant interval changes were noted apart from demonstration of gravid uterus and others as detailed above. Medical telemetry IV PPI MRCP ordered - pt could not tolerate the study H&H stable Follow H&H, transfuse PRBC if hemoglobin less than 7 and or for symptomatic anemia GI consulted re: UGIB - Dr. Stallings Pleasant young woman with one episode of hematemesis that led to her admission. Her hemoglobin is stable and it is possible she vomited blood related to esophagitis. Despite taking multiple meds for reflux she continues to smoke which could contribute to continued issues with esophagitis. Since her hemoglobin is stable I would prefer not to do EGD unless it becomes more urgent with her . She did have an episode of abdominal pain and has gallstones. Difficult to know if the two are related and she is getting MRCP today. Most of her GI problems are chronic and she does see GI at [facility]. She "wants these problems fixed". I wonder if her chronic GI issues are related to medications. The chronic issues are better addressed post Discussed w/ GI - ok to start diet. Will start clear liquids and will advance as tolerated OB consult re: eval - Dr. Hill.) FHR reassuring, NST reactive, no signs of labor Dehydrated with ketonuria Recommend IVF with dextrose and start small sips of clears as tolerated NST q shift US for growth Chronic conditions Mood disorder, at baseline polysubstance abuse as per records Recent right rib fracture ongoing tobacco abuse, Nicotine replacement therapy DVT prophylaxis. 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, started on D5W, ultrasound obtained as well to check on her Review of Systems Review of Systems: All systems reviewed & are unremarkable except as noted in Subjective Physical Exam Physical Exam: GENERAL: young F WD/WN in NAD HEENT: NC/AT, EOMI, adentulous NECK : Supple, no tenderness CHEST : CTA, no tenderness HEART : rrr ABDOMEN: gravid abdomen, soft, + mild epigastric tenderness EXTREMITIES : No LE swelling/tenderness, moves extremities NEUROLOGIC : Coherent, no facial asymmetry, no other gross focality SKIN: warm, dry Results & Data Results & Data Vital Signs (Past 12 Hours) Vital Signs Temp Pulse Pulse Pulse Resp BP Pulse Ox 06/20/24 08:00 36.7 C 55 L 12 124/67 97 06/20/24 07:07 67 06/20/24 02:33 36.7 C 80 18 121/80 96 06/20/24 00:37 55 L 06/19/24 23:09 36.6 C 54 L 18 115/67 98 06/19/24 21:53 64 06/19/24 21:00 58 L 17 118/69 97 O2 Del Method 06/20/24 08:00 Room Air 06/20/24 07:07 06/20/24 02:33 Room Air 06/20/24 00:37 06/19/24 23:09 Room Air 06/19/24 21:53 06/19/24 21:00 Laboratory Results 06/20/24 06/19/24 06/19/24 Range/Units 06:00 Unknown 21:21 WBC 19.21 H (4.8-10.8) K/ul RBC 3.83 L (4.20-5.40) M/uL Hgb 11.3 L 11.7 L (12.0-16.0) g/dl Hct 33.0 L 34.8 L (37.0-47.0) % MCV 86.2 (80.0-100.0) fL MCH 29.5 (25.0-34.0) pg MCHC 34.2 (32.0-36.0) g/dL RDW Std Deviation 41.3 (36.4-46.3) fL RDW Coeff of Ranjit 13.2 (11.5-14.5) % Plt Count 414 H (130-400) K/uL MPV 10.6 (9.4-12.4) fL Immature Gran % (Auto) 1.7 % Neut % (Auto) 75.4 % Lymph % (Auto) 18.2 % [facility] % (Auto) 4.3 % Eos % (Auto) 0.1 % Baso % (Auto) 0.3 % Neut # (Auto) 14.51 H (1.40-6.50) K/uL Lymph # (Auto) 3.49 H (1.20-3.40) K/uL [facility] # (Auto) 0.83 H (0.11-0.59) K/uL Eos # (Auto) 0.01 (0.00-0.50) K/uL Baso # (Auto) 0.05 (0.00-0.20) K/uL Immature Gran # (Auto) 0.32 H (0.01-0.20) K/uL Absolute Nucleated RBC 0.02 (0.00-0.12) K/uL Nucleated RBC % (auto) 0.1 % Sodium 139 (136-145) mmol/L Potassium 3.6 (3.5-5.1) mmol/L Chloride 109 H (98-107) mmol/L Carbon Dioxide 20 L (21-32) mmol/L Anion Gap 10 (3-11) BUN 12 (6-23) mg/dl Creatinine 0.60 (0.6-1.2) mg/dl Est Cr Clr Drug Dosing 132.5 eGFR 123.76 BUN/Creatinine Ratio 20.0 (10-20) Glucose 113 H (70-99(Fasting)) mg/dl Calcium 8.7 (8.6-10.3) mg/dl Magnesium (1.7-2.4) mg/dl Total Bilirubin 0.4 (0.2-1.0) mg/dl AST 16 (13-39) U/L ALT 14 (7-52) U/L Alkaline Phosphatase 438 H (34-104) U/L Total Protein 6.3 (6.0-8.3) gm/dl Albumin 3.3 L (3.4-5.0) gm/dl Globulin 3.0 (2.5-4.0) gm/dl Albumin/Globulin Ratio 1.1 (0.9-2) Lipase (11-82) U/L TSH (0.300-4.500) uIu/ml Urine Color Urine Appearance (Clear) Urine pH (4.5-7.5) Ur Specific Ponce (1.000-1.030) Urine Protein (Negative) Urine Glucose (UA) (Negative) Urine Ketones (Negative) Urine Blood (Negative) Urine Nitrite (Negative) Urine Bilirubin (Negative) Urine Urobilinogen (Negative) Ur Leukocyte Esterase (Negative) Urine WBC (Auto) (0-5) /hpf Urine RBC (Auto) (0-2) /hpf U Hyaline Cast (Auto) (0-2) /lpf U Epithel Cells (Auto) (0-2) /hpf Urine Bacteria (Auto) (None Seen) Urine Opiates Screen Neg (Neg) Ur Methadone, Qual Neg (Neg) Urine Fentanyl Screen Neg (Neg) Urine Barbiturates Neg (Neg) Ur Phencyclidine (PCP) Neg (Neg) U Amphetamin/Meth Scrn Neg (Neg) Urine MDEA Pending MDMA (Ecstasy) Screen Pos H (Neg) MDMA Pending Urine MDMA Pending U Benzodiazepines Scrn Neg (Neg) Ur Cocaine Metabolite Neg (Neg) U Marijuana (THC) Screen Pos H (Neg) U Marijuana THC Carboxy Pending Drug Screen Comment Pending Blood Type A Positive Antibody Screen NEGATIVE 06/19/24 06/19/24 Range/Units 19:30 17:19 WBC 17.09 H (4.8-10.8) K/ul RBC 4.55 (4.20-5.40) M/uL Hgb 13.4 (12.0-16.0) g/dl Hct 38.9 (37.0-47.0) % MCV 85.5 (80.0-100.0) fL MCH 29.5 (25.0-34.0) pg MCHC 34.4 (32.0-36.0) g/dL RDW Std Deviation 41.4 (36.4-46.3) fL RDW Coeff of Ranjit 13.2 (11.5-14.5) % Plt Count 478 H (130-400) K/uL MPV 10.4 (9.4-12.4) fL Immature Gran % (Auto) 1.6 % Neut % (Auto) 84.0 % Lymph % (Auto) 11.9 % [facility] % (Auto) 2.0 % Eos % (Auto) 0.0 % Baso % (Auto) 0.5 % Neut # (Auto) 14.36 H (1.40-6.50) K/uL Lymph # (Auto) 2.03 (1.20-3.40) K/uL [facility] # (Auto) 0.34 (0.11-0.59) K/uL Eos # (Auto) 0.00 (0.00-0.50) K/uL Baso # (Auto) 0.09 (0.00-0.20) K/uL Immature Gran # (Auto) 0.27 H (0.01-0.20) K/uL Absolute Nucleated RBC (0.00-0.12) K/uL Nucleated RBC % (auto) % Sodium 137 (136-145) mmol/L Potassium 4.0 (3.5-5.1) mmol/L Chloride 104 (98-107) mmol/L Carbon Dioxide 19 L (21-32) mmol/L Anion Gap 14 H (3-11) BUN 12 (6-23) mg/dl Creatinine 0.74 (0.6-1.2) mg/dl Est Cr Clr Drug Dosing Not Reportable eGFR 111.55 BUN/Creatinine Ratio 16.2 (10-20) Glucose 85 (70-99(Fasting)) mg/dl Calcium 9.8 (8.6-10.3) mg/dl Magnesium 1.7 (1.7-2.4) mg/dl Total Bilirubin 0.5 (0.2-1.0) mg/dl AST 22 (13-39) U/L ALT 19 (7-52) U/L Alkaline Phosphatase 580 H (34-104) U/L Total Protein 7.4 (6.0-8.3) gm/dl Albumin 4.0 (3.4-5.0) gm/dl Globulin 3.4 (2.5-4.0) gm/dl Albumin/Globulin Ratio 1.2 (0.9-2) Lipase 36 (11-82) U/L TSH 1.743 (0.300-4.500) uIu/ml Urine Color Dark Yellow Urine Appearance Clear (Clear) Urine pH 6.5 (4.5-7.5) Ur Specific Ponce 1.025 (1.000-1.030) Urine Protein 1+ H (Negative) Urine Glucose (UA) Negative (Negative) Urine Ketones 3+ H (Negative) Urine Blood Negative (Negative) Urine Nitrite Negative (Negative) Urine Bilirubin Negative (Negative) Urine Urobilinogen Negative (Negative) Ur Leukocyte Esterase Negative (Negative) Urine WBC (Auto) 0-5 (0-5) /hpf Urine RBC (Auto) 0-2 (0-2) /hpf U Hyaline Cast (Auto) 3-5 H (0-2) /lpf U Epithel Cells (Auto) 6-10 H (0-2) /hpf Urine Bacteria (Auto) 1+ H (None Seen) Urine Opiates Screen (Neg) Ur Methadone, Qual (Neg) Urine Fentanyl Screen (Neg) Urine Barbiturates (Neg) Ur Phencyclidine (PCP) (Neg) U Amphetamin/Meth Scrn (Neg) Urine MDEA MDMA (Ecstasy) Screen (Neg) MDMA Urine MDMA U Benzodiazepines Scrn (Neg) Ur Cocaine Metabolite (Neg) U Marijuana (THC) Screen (Neg) U Marijuana THC Carboxy Drug Screen Comment Blood Type Antibody Screen Medications Administered Current Inpatient Medications Acetaminophen (Acetaminophen 325 Mg Tab) 650 mg PO QID PRN PRN Reason: pain/fever Stop: 07/19/24 21:13 Last Admin: 06/20/24 05:55 Dose: 650 mg Aripiprazole (Aripiprazole 15 Mg Tab) 15 mg PO QAM REINIER Stop: 07/20/24 08:59 Escitalopram Oxalate (Escitalopram Oxalate 20 Mg Tab) 20 mg PO QAM REINIER Stop: 07/20/24 08:59 Famotidine (Famotidine 40 Mg Tablet) 40 mg PO BID [facility] Stop: 07/20/24 08:59 Gabapentin (Gabapentin 100 Mg Cap) 100 mg PO TID [facility] Stop: 07/20/24 08:59 Pantoprazole Sodium 40 mg/ (Dextrose) 100 mls @ 20 mls/hr IV Q5H [facility] Stop: 07/19/24 19:14 Last Admin: 06/20/24 06:41 Dose: 8 mg/hr, 20 mls/hr Promethazine HCl (Phenergan) 12.5 mg in 50.5 mls @ 202 mls/hr IV Q6H PRN PRN Reason: Nausea And Vomiting Stop: 07/20/24 01:29 Oxycodone HCl (Oxycodone Hcl Ir 5 Mg Tab (Immediate Release)) 5 mg PO Q6H PRN PRN Reason: Pain Stop: 07/03/24 21:12 Last Admin: 06/20/24 05:55 Dose: 5 mg
--- NOTE | 2024-06-20 09:09 | Gastrointestinal Consultation ---
Date of Consultation June 20, 2024 Assessment & Plan (1) UGIB (upper gastrointestinal bleed): Pleasant young woman with one episode of hematemesis that led to her admission. Her hemoglobin is stable and it is possible she vomited blood related to esophagitis. Despite taking multiple meds for reflux she continues to smoke which could contribute to continued issues with esophagitis. Since her hemoglobin is stable I would prefer not to do EGD unless it becomes more urgent with her . She did have an episode of abdominal pain and has gallstones. Difficult to know if the two are related and she is getting MRCP today. Most of her GI problems are chronic and she does see GI at [facility]. She "wants these problems fixed". I wonder if her chronic GI issues are related to medications. The chronic issues are better addressed post History of Present Illness Reason for Consultation: hematemesis Attending Physician: Jose Norman MD History of Present Illness 29 year old female who is 34 wks came to the hospital with vomiting blood. She tells me that for a year and a half she has issues where she will wake up at 3:30 am to have diarrhea. She will "go out of both ends" until about 10 am. She has seen GI ( Dr. Briscoe) for an EGD in the past and her symptoms were not further evaluated. She takes omeprazole and famotidine daily but she also continues to smoke. Since she has been in the hospital she has not vomited nor had diarrhea--her normal 3:30 am routine did not happen this morning. She had an episode of abdominal pain yesterday and had an ultrasound that showed gall stones and "sludge". Her CBD had progressed from 3 cm to 3.5 cm since her last ultrasound on Jun 12. Her LFT's are normal except for an elevated alk phos which may be related. Her H/H have remained stable. Allergies Allergy/AdvReac Type Severity Reaction Status Date / Time No Known Allergies Allergy Verified 06/19/24 19:30 Home Medications Medication Instructions Recorded Confirmed Type omeprazole 40 mg capsule,delayed 40 mg PO BID 01/26/23 06/19/24 History release aripiprazole 15 mg tablet 15 mg PO QAM 01/11/24 06/19/24 History escitalopram oxalate 20 mg tablet 20 mg PO QAM 01/11/24 06/19/24 History gabapentin 100 mg capsule 100 mg PO TID PRN Pain 01/11/24 06/19/24 History ondansetron 4 mg disintegrating 4 mg PO Q6H PRN nausea and 01/11/24 06/19/24 Rx tablet vomiting #10 tabs vit no.95-ferrous 1 tab PO DAILY 01/11/24 06/19/24 History fumarate 28 mg-folic acid 800 mcg tablet () promethazine 25 mg tablet 25 mg PO Q6H PRN nausea and 01/11/24 06/19/24 Rx vomiting #12 tabs oxycodone 5 mg tablet 5 mg PO Q6H PRN Pain 06/19/24 06/19/24 History famotidine 40 mg tablet 40 mg PO BID 06/20/24 06/20/24 History Patient History Medical History PTSD (post-traumatic stress disorder) Bipolar 1 disorder Cyclic vomiting syndrome Scoliosis History of drug abuse clean since 02/2021 Depression Anxiety Acid reflux Marijuana use medical marijuana for anxiety/ depression Surgical History History of open reduction and internal fixation (ORIF) procedure left elbow Hx of tooth extraction Family History Other No family history of adverse response to anesthesia Social History Smoking Status: Current every day smoker Tobacco Type: Cigarettes Cigarettes Per Day: 20 per day- advised; Second Hand Exposure: Yes; Do You Dip or Chew Tobacco: No; Hx Alcohol Use: No Hx Substance Use: Yes Last Used Substance Other:: 08/04 Substance Use Type Other:: former opiate addiction- clean since 2020 Preferred Language: German Communication Ability: Effective Career Coach Required: No Beliefs That Will Affect Care: None Current Living Situation: Parent and Family Other Information That Helps Us Care for You: No Feels Safe at Home: Yes Safety Concerns: Feels Safe At This Time Assistive Devices: Denture - Upper and Denture - Lower Review of Systems Review of Systems: All systems reviewed & are unremarkable except as noted in HPI & below Physical Exam Physical Exam: Pleasant young female in no overt distress Constitutional: WD/WN, vitals as above Neck: trachea midline, no thyromegaly Respiratory: normal respiratory effort, lungs clear to auscultation Cardiovascular: RRR, no murmur, no edema Gastrointestinal (Abdomen): Inspection/Auscultation: normal bowel sounds Percussion/Palpation: abdomen soft; abdomen nontender obviously Results & Data Vital Signs (Past 12 Hours) Vital Signs Temp Pulse Pulse Pulse Resp BP Pulse Ox 06/20/24 08:00 36.7 C 55 L 12 124/67 97 06/20/24 07:07 67 06/20/24 02:33 36.7 C 80 18 121/80 96 06/20/24 00:37 55 L 06/19/24 23:09 36.6 C 54 L 18 115/67 98 06/19/24 21:53 64 O2 Del Method 06/20/24 08:00 Room Air 06/20/24 07:07 06/20/24 02:33 Room Air 06/20/24 00:37 06/19/24 23:09 Room Air 06/19/24 21:53 Laboratory Results 06/20/24 06/19/24 06/19/24 Range/Units 06:00 Unknown 21:21 WBC 19.21 H (4.8-10.8) K/ul RBC 3.83 L (4.20-5.40) M/uL Hgb 11.3 L 11.7 L (12.0-16.0) g/dl Hct 33.0 L 34.8 L (37.0-47.0) % MCV 86.2 (80.0-100.0) fL MCH 29.5 (25.0-34.0) pg MCHC 34.2 (32.0-36.0) g/dL RDW Std Deviation 41.3 (36.4-46.3) fL RDW Coeff of Ranjit 13.2 (11.5-14.5) % Plt Count 414 H (130-400) K/uL MPV 10.6 (9.4-12.4) fL Immature Gran % (Auto) 1.7 % Neut % (Auto) 75.4 % Lymph % (Auto) 18.2 % [facility] % (Auto) 4.3 % Eos % (Auto) 0.1 % Baso % (Auto) 0.3 % Neut # (Auto) 14.51 H (1.40-6.50) K/uL Lymph # (Auto) 3.49 H (1.20-3.40) K/uL [facility] # (Auto) 0.83 H (0.11-0.59) K/uL Eos # (Auto) 0.01 (0.00-0.50) K/uL Baso # (Auto) 0.05 (0.00-0.20) K/uL Immature Gran # (Auto) 0.32 H (0.01-0.20) K/uL Absolute Nucleated RBC 0.02 (0.00-0.12) K/uL Nucleated RBC % (auto) 0.1 % Sodium 139 (136-145) mmol/L Potassium 3.6 (3.5-5.1) mmol/L Chloride 109 H (98-107) mmol/L Carbon Dioxide 20 L (21-32) mmol/L Anion Gap 10 (3-11) BUN 12 (6-23) mg/dl Creatinine 0.60 (0.6-1.2) mg/dl Est Cr Clr Drug Dosing 132.5 eGFR 123.76 BUN/Creatinine Ratio 20.0 (10-20) Glucose 113 H (70-99(Fasting)) mg/dl Calcium 8.7 (8.6-10.3) mg/dl Magnesium (1.7-2.4) mg/dl Total Bilirubin 0.4 (0.2-1.0) mg/dl AST 16 (13-39) U/L ALT 14 (7-52) U/L Alkaline Phosphatase 438 H (34-104) U/L Total Protein 6.3 (6.0-8.3) gm/dl Albumin 3.3 L (3.4-5.0) gm/dl Globulin 3.0 (2.5-4.0) gm/dl Albumin/Globulin Ratio 1.1 (0.9-2) Lipase (11-82) U/L TSH (0.300-4.500) uIu/ml Urine Color Urine Appearance (Clear) Urine pH (4.5-7.5) Ur Specific [place] (1.000-1.030) Urine Protein (Negative) Urine Glucose (UA) (Negative) Urine Ketones (Negative) Urine Blood (Negative) Urine Nitrite (Negative) Urine Bilirubin (Negative) Urine Urobilinogen (Negative) Ur Leukocyte Esterase (Negative) Urine WBC (Auto) (0-5) /hpf Urine RBC (Auto) (0-2) /hpf U Hyaline Cast (Auto) (0-2) /lpf U Epithel Cells (Auto) (0-2) /hpf Urine Bacteria (Auto) (None Seen) Urine Opiates Screen Neg (Neg) Ur Methadone, Qual Neg (Neg) Urine Fentanyl Screen Neg (Neg) Urine Barbiturates Neg (Neg) Ur Phencyclidine (PCP) Neg (Neg) U Amphetamin/Meth Scrn Neg (Neg) Urine MDEA Pending MDMA (Ecstasy) Screen Pos H (Neg) MDMA Pending Urine MDMA Pending U Benzodiazepines Scrn Neg (Neg) Ur Cocaine Metabolite Neg (Neg) U Marijuana (THC) Screen Pos H (Neg) U Marijuana THC Carboxy Pending Drug Screen Comment Pending Blood Type A Positive Antibody Screen NEGATIVE 06/19/24 06/19/24 Range/Units 19:30 17:19 WBC 17.09 H (4.8-10.8) K/ul RBC 4.55 (4.20-5.40) M/uL Hgb 13.4 (12.0-16.0) g/dl Hct 38.9 (37.0-47.0) % MCV 85.5 (80.0-100.0) fL MCH 29.5 (25.0-34.0) pg MCHC 34.4 (32.0-36.0) g/dL RDW Std Deviation 41.4 (36.4-46.3) fL RDW Coeff of Ranjit 13.2 (11.5-14.5) % Plt Count 478 H (130-400) K/uL MPV 10.4 (9.4-12.4) fL Immature Gran % (Auto) 1.6 % Neut % (Auto) 84.0 % Lymph % (Auto) 11.9 % Lares % (Auto) 2.0 % Eos % (Auto) 0.0 % Baso % (Auto) 0.5 % Neut # (Auto) 14.36 H (1.40-6.50) K/uL Lymph # (Auto) 2.03 (1.20-3.40) K/uL Lares # (Auto) 0.34 (0.11-0.59) K/uL Eos # (Auto) 0.00 (0.00-0.50) K/uL Baso # (Auto) 0.09 (0.00-0.20) K/uL Immature Gran # (Auto) 0.27 H (0.01-0.20) K/uL Absolute Nucleated RBC (0.00-0.12) K/uL Nucleated RBC % (auto) % Sodium 137 (136-145) mmol/L Potassium 4.0 (3.5-5.1) mmol/L Chloride 104 (98-107) mmol/L Carbon Dioxide 19 L (21-32) mmol/L Anion Gap 14 H (3-11) BUN 12 (6-23) mg/dl Creatinine 0.74 (0.6-1.2) mg/dl Est Cr Clr Drug Dosing Not Reportable eGFR 111.55 BUN/Creatinine Ratio 16.2 (10-20) Glucose 85 (70-99(Fasting)) mg/dl Calcium 9.8 (8.6-10.3) mg/dl Magnesium 1.7 (1.7-2.4) mg/dl Total Bilirubin 0.5 (0.2-1.0) mg/dl AST 22 (13-39) U/L ALT 19 (7-52) U/L Alkaline Phosphatase 580 H (34-104) U/L Total Protein 7.4 (6.0-8.3) gm/dl Albumin 4.0 (3.4-5.0) gm/dl Globulin 3.4 (2.5-4.0) gm/dl Albumin/Globulin Ratio 1.2 (0.9-2) Lipase 36 (11-82) U/L TSH 1.743 (0.300-4.500) uIu/ml Urine Color Dark Yellow Urine Appearance Clear (Clear) Urine pH 6.5 (4.5-7.5) Ur Specific [place] 1.025 (1.000-1.030) Urine Protein 1+ H (Negative) Urine Glucose (UA) Negative (Negative) Urine Ketones 3+ H (Negative) Urine Blood Negative (Negative) Urine Nitrite Negative (Negative) Urine Bilirubin Negative (Negative) Urine Urobilinogen Negative (Negative) Ur Leukocyte Esterase Negative (Negative) Urine WBC (Auto) 0-5 (0-5) /hpf Urine RBC (Auto) 0-2 (0-2) /hpf U Hyaline Cast (Auto) 3-5 H (0-2) /lpf U Epithel Cells (Auto) 6-10 H (0-2) /hpf Urine Bacteria (Auto) 1+ H (None Seen) Urine Opiates Screen (Neg) Ur Methadone, Qual (Neg) Urine Fentanyl Screen (Neg) Urine Barbiturates (Neg) Ur Phencyclidine (PCP) (Neg) U Amphetamin/Meth Scrn (Neg) Urine MDEA MDMA (Ecstasy) Screen (Neg) MDMA Urine MDMA U Benzodiazepines Scrn (Neg) Ur Cocaine Metabolite (Neg) U Marijuana (THC) Screen (Neg) U Marijuana THC Carboxy Drug Screen Comment Blood Type Antibody Screen Diagnostic Findings Gallbladder Ultrasound 06/20/24 01:31 EXAM: US gallbladder CLINICAL HISTORY: 7 months , vomitting. PANC non vis. LIVER 14 cm. GB stones and debris seen. Wall 0.27 cm. Negative murphys. CBD 0.4 cm RK No hydro INPATIENT TECHNIQUE: Limited ultrasound of RUQ was performed in greyscale and Doppler. Multiple images were obtained in transverse and longitudinal planes. COMPARISON: 06/12/2024. FINDINGS: Partially visualized gravid uterus. Liver: The liver measured about 14 cm in maximal craniocaudal dimension. The liver appears normal in size with homogeneous echotexture. No evidence of focal lesions, cysts, or masses. Hepatic vasculature appears normal. Gallbladder: The gallbladder is visualized and appears normal in size and shape. Multiple gallbladder stones. Level of debris/sludge is noted (new finding). No wall thickening (0.27, was 0.28 cm), or pericholecystic fluid noted. Negative Umanzor sign. No evidence of gallbladder wall edema or signs of acute cholecystitis. Biliary Tree: Common bile duct diameter: [35 mm, was 30 mm]. The common bile duct is within normal limits in caliber and not dilated. No evidence of choledocholithiasis or biliary obstruction. Right kidney is unremarkable. No hydronephrosis. IMPRESSION: 1. Stable cholelithiasis. No sonographic signs of acute cholecystitis. 2. Minimal interval increase of the common bile duct caliber and demonstration of gallbladder sludge level. Please correlate clinically to rule out cholestasis. Interval new. 3. Compared to prior study dated 06/12/2009/30/2023, no significant interval changes were noted apart from demonstration of gravid uterus and others as detailed above. Electronically signed by Fatoumata Nick 06-20-2024 03:08 AM Obstetrics Ultrasound 06/20/24 09:00 EXAM: US OB limited CLINICAL HISTORY: Check growth and JORGE per doctor. . Vomiting Cervix limited, around 3.0 cm. Appears closed. Cephalic presentation. HR 147 bpm. Measuring 34w6d by biometrics. EFW 5lb9oz JORGE 21 cm, ?upper limits Normal anterior placenta. INPATIENT TECHNIQUE: Multiple ultrasound OB images were obtained through a transabdominal approach in a cope-scale and duplex. COMPARISON: None. FINDINGS: A single intrauterine gestational sac is seen with a normal pole in Cephalic presentation. The heart rate is 147 bpm. BPD: 8.51 cm. 34 weeks and 2 days. HC: 31.75 cm. 35 weeks and 5 days. AC: 31.06 cm. 35 weeks and 0 days FL: 6.66 cm. 34 weeks and 2 days. Gestational age: 34 weeks and 6 days 2 weeks and 3 days estimated date of delivery 07/26/2024. Expected weight 2520 Gram 378 Gram (5lb9oz). 60.2% percentile. Cervix: Limited visualization, approximately 3.0 cm in length, appearing closed. Placenta is anterior. The amniotic fluid index is 21 cm, which is within the normal range (normal JORGE: 5?25 cm). IMPRESSION: 1. Single live intrauterine with estimated gestational 34 weeks and 6 days 2 weeks and 3 days. The estimated gestational age is concordant with the expected interval growth. 2. Cephalic presentation. 3. The heart rate is 147 bpm. 4. The amniotic fluid index is 21 cm, which is within the normal range (normal JORGE: 5?25 cm). 5. There is no evidence of immediate concern, but continued monitoring is recommended. GREGORY by today's AUA exam, 07/26/2024. Disclaimer: anomalies may be present but not detected. Chromosomal abnormalities cannot be ruled out with certainty, even with the normal findings. Electronically signed by Fatoumata Nick 06-20-2024 03:36 AM
[2024-06-20] MEDS: PROMETHAZINE 12.5 MG/50.5 ML BAG IV PRN (09:11)
[2024-06-20] MEDS: GABAPENTIN 100 MG CAP PO SCH (09:14)
[2024-06-20] MEDS: FAMOTIDINE 40 MG TABLET PO SCH (09:14)
[2024-06-20] MEDS: ARIPiprazole 15 MG TAB PO SCH (09:14)
[2024-06-20] MEDS: ESCITALOPRAM OXALATE 20 MG TAB PO SCH (09:14)
[2024-06-20 11:50] VITALS: RESP 16
[2024-06-20] MEDS: NICOTINE 7 MG/24 HR TDSY TD SCH (14:18)
[2024-06-20 16:52] VITALS: BP 112/73; TEMP 98.2; O2SAT 94
[2024-06-20] MEDS ORDERED: D5W AND LACTATED RINGERS 1,000 ML IV SCH (17:45)
[2024-06-20 18:01] VITALS: PULSE 54
--- NOTE | 2024-06-20 18:19 | Discharge Summary ---
Date of Service June 20, 2024 Admission HPI Per Admitting Provider History obtained from patient, family, and records. Medical history significant for GERD, cholelithiasis, mood disorder, polysubstance abuse as per records, right rib fracture, ongoing tobacco abuse. Patient currently 34 weeks AOG. 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 Recent ER visit last week for right-sided rib and back pain of 1 week duration. Right-sided rib fracture on imaging. Gallstones on RUQ ultrasound. Patient discharged home on analgesic regimen. Patient with worsening epigastric discomfort the last few weeks. Denies inordinate OTC NSAID intake. PCP added sucralfate to patient's omeprazole and famotidine home medications. Today, patient had hematemesis and worsening abdominal discomfort. Denies chest pain, SOB. Patient brought to ER for evaluation by partner. IV Protonix administered at the ER. Medical History as above 2022 EGD was unremarkable Surgical History : Dental surgery, elbow surgery Family History : Alcoholism, breast cancer, DM, stroke, mental illness Personal/Social history : Few cigarettes a day, no EtOH intake, caregiver Admission Exam Per Admitting Provider GENERAL: uncomfortable, lying down on left lateral decubitus position, no respiratory distress SKIN: Normal color, warm HEENT: [place] palpebral conjunctivae, no ptosis, dry buccal mucosa NECK : Supple, no tenderness CHEST : CTA, no tenderness HEART : Bradycardic, no obvious murmurs ABDOMEN: Some distention, epigastric tenderness EXTREMITIES : No LE swelling/tenderness, no other conspicuous deformities noted NEUROLOGIC : Coherent, no facial asymmetry, no other gross focality Principal Diagnosis Hematemesis 34 weeks Discharge Exam GENERAL: young F WD/WN in NAD HEENT: NC/AT, EOMI, adentulous NECK : Supple, no tenderness CHEST : CTA, no tenderness HEART : rrr ABDOMEN: gravid abdomen, soft, + mild epigastric tenderness EXTREMITIES : No LE swelling/tenderness, moves extremities NEUROLOGIC : Coherent, no facial asymmetry, no other gross focality SKIN: warm, dry Discharge Data Allergies Allergy/AdvReac Type Severity Reaction Status Date / Time No Known Allergies Allergy Verified 06/19/24 19:30 Consultations 06/19/24 19:23 ED Decision to Admit Stat 06/19/24 19:26 Consult Obstetrics Stat 06/19/24 22:32 Consult Gastroenterology Routine Ordered Studies 06/20/24 01:31 US gallbladder Stat 06/20/24 04:26 MR MRCP Routine 06/20/24 09:00 US OB limited Routine Hospital Course (1) UGIB (upper gastrointestinal bleed): Worsening GERD secondary to Patient currently hemodynamically stable. Abdominal pain secondary to above, now improved Progressive increase in alk phos levels likely secondary to - per GI Rule out cholecystitis, biliary obstruction, history of cholelithiasis on imaging last week Repeat gallbladder US Gallbladder: The gallbladder is visualized and appears normal in size and shape. Multiple gallbladder stones. Level of debris/sludge is noted (new finding). No wall thickening (0.27, was 0.28 cm), or pericholecystic fluid noted. Negative Umanzor sign. No evidence of gallbladder wall edema or signs of acute cholecystitis. No evidence of choledocholithiasis or biliary obstruction. IMPRESSION: 1. Stable cholelithiasis. No sonographic signs of acute cholecystitis. 2. Minimal interval increase of the common bile duct caliber and demonstration of gallbladder sludge level. Please correlate clinically to rule out cholestasis. Interval new. 3. Compared to prior study dated 06/12/2009/30/2023, no significant interval changes were noted apart from demonstration of gravid uterus and others as detailed above. Medical telemetry IV PPI MRCP ordered - pt could not tolerate the study H&H stable Follow H&H, transfuse PRBC if hemoglobin less than 7 and or for symptomatic anemia GI consulted re: UGIB - Dr. Stallings Pleasant young woman with one episode of hematemesis that led to her admission. Her hemoglobin is stable and it is possible she vomited blood related to esophagitis. Despite taking multiple meds for reflux she continues to smoke which could contribute to continued issues with esophagitis. Since her hemoglobin is stable I would prefer not to do EGD unless it becomes more urgent with her . She did have an episode of abdominal pain and has gallstones. Difficult to know if the two are related and she is getting MRCP today. Most of her GI problems are chronic and she does see GI at [facility]. She "wants these problems fixed". I wonder if her chronic GI issues are related to medications. The chronic issues are better addressed post Discussed w/ GI - ok to start diet. Will start clear liquids and will advance as tolerated OB consult re: eval - Dr. Hill.) FHR reassuring, NST reactive, no signs of labor Dehydrated with ketonuria Recommend IVF with dextrose and start small sips of clears as tolerated NST q shift US for growth Chronic conditions Mood disorder, at baseline polysubstance abuse as per records Recent right rib fracture ongoing tobacco abuse, Nicotine replacement therapy Patient left AMA Pt wanted to go outside this afternoon and was able to do so with an aid. Per RN, pt again requested to go outside this evening however there was no staff immediately available to take her out and so pt left AMA. Total Time Total Time Spent Total Time Spent (In Minutes): 40 Discharge Plan Discharge Items Patient Disposition: Against Medical Advice Reason For Visit: UGIB, PRIVATE RM PER RQ Follow-up/Referrals: Seven Guerrero MD [Primary Care Provider] - Stand-Alone Forms: [facility], Smoking Cessation Medications and DC Order Prescriptions: No Action omeprazole 40 mg capsule,delayed release(DR/EC) 40 mg PO BID gabapentin 100 mg capsule 100 mg PO TID PRN (Reason: Pain) escitalopram oxalate 20 mg tablet 20 mg PO QAM aripiprazole 15 mg tablet 15 mg PO QAM PNV cmb#95-ferrous fumarate-FA [] 28 mg iron- 800 mcg tablet 1 tab PO DAILY promethazine 25 mg tablet 25 mg PO Q6H PRN (Reason: nausea and vomiting) Qty: 12 0RF ondansetron 4 mg tablet,disintegrating 4 mg PO Q6H PRN (Reason: nausea and vomiting) Qty: 10 0RF oxycodone 5 mg Tablet 5 mg PO Q6H PRN (Reason: Pain) famotidine 40 mg tablet 40 mg PO BID Discharge Orders: Left Against Medical Advice (Routine); Ordered 06/20/24 Ordered By: Jose Norman Admission Data Admit Date/Time: 06/19/24 20:53 Attending Provider: Jose Norman Admit Provider: Kieran Carlos Primary Care Provider: Seven Guerrero Other Providers: Kieran Carlos; Cody Hill; Adelina Stallings Jr Other Interventions: Discharge Summary Assessment (RN) Last Done: 06/20/24 18:00
--- NOTE | 2024-06-20 18:28 | Communication Note ---
Date of Service: June 20, 2024 Notified by RN that pt left AMA. Earlier this afternoon, patient requested to go outside, and she was allowed to do so with an aide. Per RN, she was threatening to leave AMA, however after I discussed with her that she was allowed to go outside, she decided to stay hospitalized. Per RN, patient requested to go outside again this evening, however there was no staff immediately available to take her out and so patient left AMA. MD Emerson
[2024-06-24 17:47] LABS: MDA negative; MDEA negative; MDMA (Ecstasy) Urine, Confirm negative; Marijuana Quant, GCMS Urine 2650 ng/mL (<5)
== END 2024-06-20 18:05 | disposition left against medical advice (07) ==
LOC: 2N 16:46 → ED 16:46 → 2N 22:02

== ENCOUNTER 2024-07-17 00:17 | Observation (INO) ==
--- NOTE | 2024-07-17 00:40 | Emergency Department Note ---
Impression & Plan Vomiting, , Irregular contractions ED Provider Note NAME: ITALO SNOW AGE: 29 SEX: F : 1995 ARRIVES VIA: Walk-In INFORMANT: Patient ED PROVIDER(S): Iam Mclaughlin DO CHIEF COMPLAINT: Contractions and vomiting HPI: Patient is a 29-year-old female G1, P0 at 38 weeks who presents to the ER for diffuse abdominal cramping/contractions. Contractions have been coming going every 2 to 3 minutes per patient. She is having nausea and vomiting with this. She has no focal pain throughout her belly. She was seen at labor and delivery around 5:00 and notes contractions have persisted and are constant. She denies any vaginal bleeding or vaginal discharge. No dysuria, urgency, or frequency. No other exacerbating or remitting factors. notes that he saw OB earlier tonight and was discharged with the same symptoms. ADDITIONAL HISTORY OBTAINED: Per HPI Chronic Medical/Social Conditions Affecting Care: Per HPI PAST MEDICAL HISTORY:See Below PAST SURGICAL HISTORY:See Below FAMILY HISTORY:See Below SOCIAL HISTORY:See Below HOME MEDICATIONS:See Below ALLERGIES:See Below VITALS:See Below PHYSICAL EXAMINATION: GENERAL: Kneeling bent over holding her abdomen, alert, intermittent vomiting, EYE EXAM: normal conjunctiva. PERRL and EOM's grossly intact. OROPHARYNX: no exudate, no erythema, lips, buccal mucosa, and tongue normal and mucous membranes are moist NECK: supple, no nuchal rigidity, no adenopathy, non-tender LUNGS: Clear to auscultation. Normal chest wall mechanics HEART: no murmurs, S1 normal and S2 normal ABDOMEN: abdomen soft, gravid uterus up to the subxiphoid region, patient holding abdomen UPPER EXTREMITIES: upper extremities are grossly normal. LOWER EXTREMITIES: No pitting edema. NEURO EXAM: Normal sensorium, cranial nerves II-XII grossly intact, normal speech, no gross weakness of arms, no gross weakness of legs. MEDICAL DECISION MAKING: Patient is a 29-year-old female who presents ER for the above-stated complaint. She is G1, P0 at 38 weeks today who was seen and evaluated earlier today by labor and delivery. She presents today for worsening contractions and vomiting. I called Dr. Kellogg and spoke with him over the phone. He did agree to seeing the patient upstairs. She was given fluids and Zofran. Labs were obtained here and she was transferred upstairs as she did note that she felt like the cramps/contractions were getting worse. We were notified by L&D that patient was being sent back down to the ER following being cleared per our nursing staff. Labs showed a leukocytosis of 20,000 which is fairly consistent with previous. No anemia. BMP with a CO2 of 18 LFTs and bilirubin is unremarkable. Lipase was normal. UA was ordered but not obtained prior to admission. Discussed case with the hospitalist for further evaluation management treatment. She was given 2 L of IV fluids Zofran and Reglan for the vomiting which did improve. Consults/Care Managements Discussions: Per MDM Triage Nursing notes reviewed. Limited review of prior medical records performed Vital Signs: reviewed and remarkable for no significant abnormalities Differential diagnosis: Differential diagnoses includes but is not limited to gastritis, peptic ulcer disease, GERD, gallbladder disease, pancreatitis, small bowel obstruction, appendicitis, diverticulitis, hernia, urinary tract infection, torsion, /ectopic (if female), perforation, trauma, infectious. ER treatment provided: See below Diagnostics interpreted by me include EKG and cardiac monitoring as listed below: -Cardiac Monitoring: An order was placed for continuous cardiac monitoring. The monitor shows a rate of 60 with sinus rhythm. -ECG: none -Laboratory studies:Interpreted by me as stated above in MDM and shown below. Imaging studies: Xrays: As interpreted by me:none CTs show: none Procedures:none Critical Care: None Past Med/Surg History Problem List (Updated 07/17/24 @ 04:05 by Iam Mclaughlin DO) Irregular contractions (Acute) UGIB (upper gastrointestinal bleed) with 34 completed weeks gestation Hematemesis (Acute) (Acute) Vomiting (Acute) Medical History PTSD (post-traumatic stress disorder) Bipolar 1 disorder Cyclic vomiting syndrome Scoliosis History of drug abuse clean since 02/2021 Depression Anxiety Acid reflux Marijuana use medical marijuana for anxiety/ depression Surgical History History of open reduction and internal fixation (ORIF) procedure left elbow Hx of tooth extraction Family History Other No family history of adverse response to anesthesia Social History Smoking Status: Current every day smoker Tobacco Type: Cigarettes Cigarettes Per Day: 10; Second Hand Exposure: Yes; Do You Dip or Chew Tobacco: No; Hx Alcohol Use: No Hx Substance Use: Yes Last Used Substance: Days (ago) Last Used Substance Other:: 07/15/2024 Substance Use Type Other:: medical marijuana - pt states she has a card Preferred Language: Khmer Communication Ability: Effective Bit Sharpener Required: No Beliefs That Will Affect Care: None marital status: Single Current Living Situation: Family and Significant Other Current Living Situation Comment: Pt lives with her mother and father and fiance Feels Safe at Home: Yes Safety Concerns: Feels Safe At This Time Assistive Devices: Contacts, Denture - Upper and Denture - Lower Allergies Allergies Allergy/AdvReac Type Severity Reaction Status Date / Time No Known Allergies Allergy Verified 06/19/24 19:30 Home Meds Home Medications Medication Instructions Recorded Confirmed omeprazole 40 mg capsule,delayed 40 mg PO BID 01/26/23 07/17/24 release aripiprazole 15 mg tablet 15 mg PO QAM 01/11/24 07/17/24 escitalopram oxalate 20 mg tablet 20 mg PO QAM 01/11/24 07/17/24 vit no.95-ferrous 1 tab PO DAILY 01/11/24 07/17/24 fumarate 28 mg-folic acid 800 mcg tablet () famotidine 40 mg tablet 40 mg PO BID 06/20/24 07/17/24 gabapentin 300 mg capsule 300 mg PO BID PRN Pain 07/17/24 07/17/24 valacyclovir 500 mg tablet 500 mg PO BID 07/17/24 07/17/24 Previous Rx's Medication Instructions Recorded ondansetron 4 mg disintegrating 4 mg PO Q6H PRN nausea and 01/11/24 tablet vomiting #10 tabs promethazine 25 mg tablet 25 mg PO Q6H PRN nausea and 01/11/24 vomiting #12 tabs Results & Data (ED) Vital Signs Vital Signs - 24 hr 07/17/24 00:25 07/17/24 02:14 07/17/24 02:19 Temperature 36.5 C Temperature Source Temporal Artery Scan Pulse Rate 64 60 Pulse Rate from SpO2 Sensor Respiratory Rate 16 Respiratory Effort / Characteristics Non-Labored Spontaneous Respiratory Depth Normal Respiratory Pattern Regular Blood Pressure 124/80 Blood Pressure Mean 94 Blood Pressure Position Sitting Pulse Oximetry 98 98 Oxygen Delivery Method Room Air Room Air Sepsis Recent Fever Within 48 Hours No Sepsis New/Unexplained Change in Mental Status N/A Sepsis Action Taken by Nursing No Action Required 07/17/24 02:36 07/17/24 03:03 07/17/24 03:32 Temperature Temperature Source Pulse Rate 55 L 58 L 60 Pulse Rate from SpO2 Sensor 59 L 57 L 56 L Respiratory Rate 16 20 19 Respiratory Effort / Characteristics Respiratory Depth Respiratory Pattern Blood Pressure 144/109 H 151/89 H 146/92 H Blood Pressure Mean 120 109 110 Blood Pressure Position Pulse Oximetry 93 98 95 Oxygen Delivery Method Room Air Room Air Room Air Sepsis Recent Fever Within 48 Hours Sepsis New/Unexplained Change in Mental Status Sepsis Action Taken by Nursing Laboratory Data 07/17/24 00:43 07/17/24 00:43 Lab Results 07/17/24 Range/Units 00:43 WBC 21.82 H (4.8-10.8) K/ul RBC 4.58 (4.20-5.40) M/uL Hgb 12.9 (12.0-16.0) g/dl Hct 38.7 (37.0-47.0) % MCV 84.5 (80.0-100.0) fL MCH 28.2 (25.0-34.0) pg MCHC 33.3 (32.0-36.0) g/dL RDW Std Deviation 45.4 (36.4-46.3) fL RDW Coeff of Ranjit 15.5 H (11.5-14.5) % Plt Count 430 H (130-400) K/uL MPV 11.1 (9.4-12.4) fL Immature Gran % (Auto) 1.2 % Neut % (Auto) 85.3 % Lymph % (Auto) 10.6 % [place] % (Auto) 2.5 % Eos % (Auto) 0.0 % Baso % (Auto) 0.4 % Neut # (Auto) 18.61 H (1.40-6.50) K/uL Lymph # (Auto) 2.32 (1.20-3.40) K/uL [place] # (Auto) 0.54 (0.11-0.59) K/uL Eos # (Auto) 0.01 (0.00-0.50) K/uL Baso # (Auto) 0.08 (0.00-0.20) K/uL Immature Gran # (Auto) 0.26 H (0.01-0.20) K/uL Sodium 137 (136-145) mmol/L Potassium 3.6 (3.5-5.1) mmol/L Chloride 106 (98-107) mmol/L Carbon Dioxide 18 L (21-32) mmol/L Anion Gap 13 H (3-11) BUN 16 (6-23) mg/dl Creatinine 0.82 (0.6-1.2) mg/dl Est Cr Clr Drug Dosing Not Reportable eGFR 98.62 BUN/Creatinine Ratio 19.5 (10-20) Glucose 109 H (70-99(Fasting)) mg/dl Calcium 9.7 (8.6-10.3) mg/dl Total Bilirubin 0.5 (0.2-1.0) mg/dl AST 23 (13-39) U/L ALT 22 (7-52) U/L Alkaline Phosphatase 620 H (34-104) U/L Total Protein 7.7 (6.0-8.3) gm/dl Albumin 4.4 (3.4-5.0) gm/dl Globulin 3.3 (2.5-4.0) gm/dl Albumin/Globulin Ratio 1.3 (0.9-2) Lipase 60 (11-82) U/L Administered Medications Discontinued Medications Sodium Chloride (Nss) 1,000 mls @ 999 mls/hr IV .Q1H1M ONE Stop: 07/17/24 01:37 Last Infusion: 07/17/24 03:25 Dose: Infused Documented By: Admin: 07/17/24 02:02 Dose: 999 mls/hr Documented By: BETH Sodium Chloride (Nss) 1,000 mls @ 999 mls/hr IV .Q1H1M ONE Stop: 07/17/24 02:34 Last Infusion: 07/17/24 03:25 Dose: Infused Documented By: Admin: 07/17/24 02:13 Dose: 999 mls/hr Documented By: BETH Metoclopramide HCl (Metoclopramide Hcl Inj 5 Mg/Ml 2 Ml Vial) 10 mg IV NOW STA Stop: 07/17/24 01:34 Last Admin: 07/17/24 02:10 Dose: 10 mg Documented By: BETH Ondansetron HCl (Ondansetron Inj 2 Mg/Ml 2 Ml Vial) 4 mg IV NOW STA Stop: 07/17/24 00:38 Last Admin: 07/17/24 00:54 Dose: 4 mg Documented By: JAnusha Discharge Plan Visit Data Chief Complaint: Vomiting Stated Complaint: VOMITING LAST 15 HOURS ED Provider: Iam Mclaughlin Discharge Problem: Vomiting, , Irregular contractions Discharge Instructions Interventions: ED Discharge Assessment Last Done: 07/17/24 01:01 Forms Stand Alone Forms: [facility] Prescriptions Prescriptions: No Action omeprazole 40 mg capsule,delayed release(DR/EC) 40 mg PO BID escitalopram oxalate 20 mg tablet 20 mg PO QAM aripiprazole 15 mg tablet 15 mg PO QAM PNV cmb#95-ferrous fumarate-FA [] 28 mg iron- 800 mcg tablet 1 tab PO DAILY promethazine 25 mg tablet 25 mg PO Q6H PRN (Reason: nausea and vomiting) Qty: 12 0RF ondansetron 4 mg tablet,disintegrating 4 mg PO Q6H PRN (Reason: nausea and vomiting) Qty: 10 0RF famotidine 40 mg tablet 40 mg PO BID valacyclovir 500 mg tablet 500 mg PO BID gabapentin 300 mg capsule 300 mg PO BID PRN (Reason: Pain) Referrals Referrals: Seven Guerrero MD [Primary Care Provider] - Discharge Problem: Vomiting Qualifiers: Vomiting type: unspecified Nausea presence: unspecified Qualified Code(s): R 11.10 - Vomiting, unspecified Qualifiers: Weeks of gestation: 38 weeks Qualified Code(s): Z3A.38 - 38 weeks gestation of
[2024-07-17 00:54] LABS: Basophils # (auto) 0.08 K/uL (0.00-0.20); Basophils % (auto) 0.4 %; Eosinophils # (auto) 0.01 K/uL (0.00-0.50); Hematocrit (blood only) 38.7 % (37.0-47.0); Hemoglobin 12.9 g/dl (12.0-16.0); Immature Granulocytes # (auto) 0.26 K/uL (0.01-0.20); Immature Granulocytes % (auto) 1.2 %; Lymphocytes # (auto) 2.32 K/uL (1.20-3.40); Lymphocytes % (auto) 10.6 %; Mean Corpuscular Hemoglobin 28.2 pg (25.0-34.0); Mean Corpuscular Hgb Conc 33.3 g/dL (32.0-36.0); Mean Corpuscular Volume 84.5 fL (80.0-100.0); Mean Platelet Volume 11.1 fL (9.4-12.4); Monocytes # (auto) 0.54 K/uL (0.11-0.59); Monocytes % (auto) 2.5 %; Neutrophils # (auto) 18.61 K/uL (1.40-6.50); Neutrophils % (auto) 85.3 %; Platelet Count 430 K/uL (130-400); RDW Coefficient of Variation 15.5 % (11.5-14.5); RDW Standard Deviation 45.4 fL (36.4-46.3); Red Blood Count 4.58 M/uL (4.20-5.40); White Blood Count 21.82 K/ul (4.8-10.8)
[2024-07-17] MEDS: ONDANSETRON INJ 2 MG/ML 2 ML VIAL IV STA ×2 (00:54→06:02)
[2024-07-17] MEDS: SODIUM CHLORIDE 0.9% 1,000 ML IV ONE ×4 (00:54→10:24)
[2024-07-17 01:11] LABS: Alanine Aminotransferase 22 U/L (7-52); Albumin Globulin Ratio 1.3 (0.9-2); Albumin Level 4.4 gm/dl (3.4-5.0); Alkaline Phosphatase 620 U/L (34-104); Anion Gap 13 (3-11); Aspartate Aminotransferase 23 U/L (13-39); BUN Creatinine Ratio 19.5 (10-20); Bilirubin,Total 0.5 mg/dl (0.2-1.0); Blood Urea Nitrogen 16 mg/dl (6-23); Calcium 9.7 mg/dl (8.6-10.3); Carbon Dioxide 18 mmol/L (21-32); Chloride 106 mmol/L (98-107); Globulin 3.3 gm/dl (2.5-4.0); Glucose 109 mg/dl (70-99(Fasting)); Lipase 60 U/L (11-82); Potassium 3.6 mmol/L (3.5-5.1); Sodium 137 mmol/L (136-145); Total Protein 7.7 gm/dl (6.0-8.3)
[2024-07-17] MEDS: METOCLOPRAMIDE HCL INJ 5 MG/ML 2 ML VIAL IV STA (02:10)
--- NOTE | 2024-07-17 04:26 | History & Physical Report ---
Date of Service July 17, 2024 Assessment & Plan (1) Vomiting: Plan: 29-year-old female 38 weeks and past medical history significant for GERD, herpes infection in , bipolar disorder, nicotine dependence, polysubstance abuse, marijuana use during comes with persistent nausea and vomiting. Patient states having nausea and vomiting since yesterday morning and has been persistent. She is also having a lot of contractions. She was seen by [facility] twice in the ER. Denies any fevers. No headache. No runny nose or sore throat. No cough. No chest pain or shortness of breath. Recently in the hospital for GI bleed as hemoglobin was stable EGD was not done and also patient signed out AMA during that admission. Persistent nausea and vomiting 38-week N.p.o. IV fluids IV Zofran as needed Will consult GI for further recommendations 38-week Complaints of contractions Evaluate very [facility] twice in the ER Not in labor per [facility] Wll be monitored by [facility] Will consult [facility] a.m. GERD IV Pepcid Possible UTI leukocytosis follow repeat ua and cultures. DVT prophylaxis SCDs Disposition Med/telemetry Full code. History of Present Illness Chief Complaint: Persistent nausea vomiting and contractions Primary Care Provider: Seven Guerrero MD 29-year-old female 38 weeks and past medical history significant for GERD, herpes infection in , bipolar disorder, nicotine dependence, polysubstance abuse, marijuana use during comes with persistent nausea and vomiting. Patient states having nausea and vomiting since yesterday morning and has been persistent. She is also having a lot of contractions. She was seen by [facility] twice in the ER. Denies any fevers. No headache. No runny nose or sore throat. No cough. No chest pain or shortness of breath. Recently in the hospital for GI bleed as hemoglobin was stable EGD was not done and also patient signed out AMA during that admission. Past medical history. As mentioned above Past surgical history. EGD. Dental surgery. Elbow surgery. Social history. Smokes. As per epic. No alcohol use. Smokes marijuana twice a week. Family history. Mother has alcoholism. Arthritis. Cancer. Diabetes. Hypertension. Mental disorder. Stroke. Thyroid disorder. Father has hypertension. Maternal grandmother had breast cancer. Allergies Allergy/AdvReac Type Severity Reaction Status Date / Time No Known Allergies Allergy Verified 06/19/24 19:30 Home Medications Medication Instructions Recorded Confirmed Type omeprazole 40 mg capsule,delayed 40 mg PO BID 01/26/23 07/17/24 History release aripiprazole 15 mg tablet 15 mg PO QAM 01/11/24 07/17/24 History escitalopram oxalate 20 mg tablet 20 mg PO QAM 01/11/24 07/17/24 History ondansetron 4 mg disintegrating 4 mg PO Q6H PRN nausea and 01/11/24 07/17/24 Rx tablet vomiting #10 tabs vit no.95-ferrous 1 tab PO DAILY 01/11/24 07/17/24 History fumarate 28 mg-folic acid 800 mcg tablet () promethazine 25 mg tablet 25 mg PO Q6H PRN nausea and 01/11/24 07/17/24 Rx vomiting #12 tabs famotidine 40 mg tablet 40 mg PO BID 06/20/24 07/17/24 History gabapentin 300 mg capsule 300 mg PO BID PRN Pain 07/17/24 07/17/24 History valacyclovir 500 mg tablet 500 mg PO BID 07/17/24 07/17/24 History Past Med/Surg History Problem List (Updated 07/17/24 @ 09:06 by Cody Hill MD) Dehydration during Nausea and vomiting during Irregular contractions (Acute) UGIB (upper gastrointestinal bleed) with 34 completed weeks gestation Hematemesis (Acute) (Acute) Vomiting (Acute) Medical History PTSD (post-traumatic stress disorder) Bipolar 1 disorder Cyclic vomiting syndrome Scoliosis History of drug abuse clean since 02/2021 Depression Anxiety Acid reflux Marijuana use medical marijuana for anxiety/ depression Surgical History History of open reduction and internal fixation (ORIF) procedure left elbow Hx of tooth extraction Family History Other No family history of adverse response to anesthesia Social History Smoking Status: Current every day smoker Tobacco Type: Cigarettes Cigarettes Per Day: 10; Second Hand Exposure: Yes; Do You Dip or Chew Tobacco: No; Hx Alcohol Use: No Hx Substance Use: Yes Last Used Substance: Days (ago) Last Used Substance Other:: 07/15/2024 Substance Use Type Other:: medical marijuana - pt states she has a card Preferred Language: Hungarian Communication Ability: Effective Pattern Storage Clerk Required: No Beliefs That Will Affect Care: None marital status: Single Current Living Situation: Family and Significant Other Current Living Situation Comment: Pt lives with her mother and father and fiance Other Information That Helps Us Care for You: No Feels Safe at Home: Yes Assistive Devices: Contacts, Denture - Upper and Denture - Lower Review of Systems Review of Systems: All systems reviewed & are unremarkable except as noted in HPI & below Physical Exam Physical Exam: General- Not in acute distress Head- atraumatic Eyes- PERRL. ENT- oropharynx clear Neck- supple, no JVD. Lungs- clear to auscultation no wheezing or crackles Heart- regular rate and rhythm; no murmur, no gallop. Abdomen- normal bowel sounds, nontender, no distension Extremities- no pretibial edema, no erythema seen Neuro- alert, oriented PERRL, no facial palsy; no dysarthria; moves extremities Results & Data Results & Data Vital Signs (Past 12 Hours) Vital Signs Temp Pulse Resp BP Pulse Ox O2 Del Method 07/17/24 04:05 74 23 129/77 96 Room Air 07/17/24 04:01 58 L 19 129/77 98 Room Air 07/17/24 03:32 60 19 146/92 H 95 Room Air 07/17/24 03:03 58 L 20 151/89 H 98 Room Air 07/17/24 02:36 55 L 16 144/109 H 93 Room Air 07/17/24 02:19 60 07/17/24 02:14 98 Room Air 07/17/24 00:25 36.5 C 64 16 124/80 98 Room Air Diagnostic Findings Laboratory Results WBC 21.82 K/ul (4.8-10.8) H 07/17/24 00:43 RBC 4.58 M/uL (4.20-5.40) 07/17/24 00:43 Hgb 12.9 g/dl (12.0-16.0) 07/17/24 00:43 Hct 38.7 % (37.0-47.0) 07/17/24 00:43 MCV 84.5 fL (80.0-100.0) 07/17/24 00:43 MCH 28.2 pg (25.0-34.0) 07/17/24 00:43 MCHC 33.3 g/dL (32.0-36.0) 07/17/24 00:43 RDW Std Deviation 45.4 fL (36.4-46.3) 07/17/24 00:43 RDW Coeff of Ranjit 15.5 % (11.5-14.5) H 07/17/24 00:43 Plt Count 430 K/uL (130-400) H 07/17/24 00:43 MPV 11.1 fL (9.4-12.4) 07/17/24 00:43 Immature Gran % (Auto) 1.2 % 07/17/24 00:43 Neut % (Auto) 85.3 % 07/17/24 00:43 Lymph % (Auto) 10.6 % 07/17/24 00:43 [place] % (Auto) 2.5 % 07/17/24 00:43 Eos % (Auto) 0.0 % 07/17/24 00:43 Baso % (Auto) 0.4 % 07/17/24 00:43 Neut # (Auto) 18.61 K/uL (1.40-6.50) H 07/17/24 00:43 Lymph # (Auto) 2.32 K/uL (1.20-3.40) 07/17/24 00:43 [place] # (Auto) 0.54 K/uL (0.11-0.59) 07/17/24 00:43 Eos # (Auto) 0.01 K/uL (0.00-0.50) 07/17/24 00:43 Baso # (Auto) 0.08 K/uL (0.00-0.20) 07/17/24 00:43 Immature Gran # (Auto) 0.26 K/uL (0.01-0.20) H 07/17/24 00:43 Sodium 137 mmol/L (136-145) 07/17/24 00:43 Potassium 3.6 mmol/L (3.5-5.1) 07/17/24 00:43 Chloride 106 mmol/L (98-107) 07/17/24 00:43 Carbon Dioxide 18 mmol/L (21-32) L 07/17/24 00:43 Anion Gap 13 (3-11) H 07/17/24 00:43 BUN 16 mg/dl (6-23) 07/17/24 00:43 Creatinine 0.82 mg/dl (0.6-1.2) 07/17/24 00:43 Est Cr Clr Drug Dosing Not Reportable 07/17/24 00:43 eGFR 98.62 07/17/24 00:43 BUN/Creatinine Ratio 19.5 (10-20) 07/17/24 00:43 Glucose 109 mg/dl (70-99(Fasting)) H 07/17/24 00:43 Calcium 9.7 mg/dl (8.6-10.3) 07/17/24 00:43 Total Bilirubin 0.5 mg/dl (0.2-1.0) 07/17/24 00:43 AST 23 U/L (13-39) 07/17/24 00:43 ALT 22 U/L (7-52) 07/17/24 00:43 Alkaline Phosphatase 620 U/L (34-104) H 07/17/24 00:43 Total Protein 7.7 gm/dl (6.0-8.3) 07/17/24 00:43 Albumin 4.4 gm/dl (3.4-5.0) 07/17/24 00:43 Globulin 3.3 gm/dl (2.5-4.0) 07/17/24 00:43 Albumin/Globulin Ratio 1.3 (0.9-2) 07/17/24 00:43 Lipase 60 U/L (11-82) 07/17/24 00:43 Code Status & VTE Plan VTE Prophylaxis Plan VTE Prophylaxis will be ordered: Yes (1) Vomiting Nausea presence: unspecified Vomiting type: unspecified Qualified Code(s): R11.10 - Vomiting, unspecified
[2024-07-17 04:35] LABS: Appearance Urine Cloudy (Clear); Bacteria Urine Automated 3+ (None Seen); Bilirubin Urine 1+ (Negative); Blood Urine Trace (Negative); Color Urine Dark Yellow; Epithelial Cell Urine Auto >20 /hpf (0-2); Glucose Urine UA Negative (Negative); Ketones Urine 2+ (Negative); Leukocyte Esterase Urine Trace (Negative); Mucus Urine Present (None Prsent); Nitrite Urine Negative (Negative); Protein Urine 3+ (Negative); RBC Urine Automated 0-2 /hpf (0-2); Specific Gravity Urine 1.033 (1.000-1.030); Urobilinogen Urine Negative (Negative); pH Urine 5.5 (4.5-7.5)
[2024-07-17] MEDS: ONDANSETRON INJ 2 MG/ML 2 ML VIAL ONE (06:03)
[2024-07-17] MEDS ORDERED: ONDANSETRON INJ 2 MG/ML 2 ML VIAL IV PRN (06:58)
[2024-07-17] MEDS: SODIUM CHLORIDE 0.9% 1,000 ML IV SCH (07:20)
[2024-07-17 08:29] LABS: Hematocrit (blood only) 37.1 % (37.0-47.0); Hemoglobin 12.6 g/dl (12.0-16.0); Mean Corpuscular Hemoglobin 28.8 pg (25.0-34.0); Mean Corpuscular Volume 84.7 fL (80.0-100.0); Mean Platelet Volume 10.9 fL (9.4-12.4); Platelet Count 402 K/uL (130-400); RDW Coefficient of Variation 15.6 % (11.5-14.5); RDW Standard Deviation 45.8 fL (36.4-46.3); Red Blood Count 4.38 M/uL (4.20-5.40); White Blood Count 24.54 K/ul (4.8-10.8)
[2024-07-17 08:44] LABS: BUN Creatinine Ratio 21.1 (10-20); Calcium 9.1 mg/dl (8.6-10.3); Creatinine Clr Calc Pharmacy 104.9 ml/min; Magnesium 1.9 mg/dl (1.7-2.4); Potassium 4.1 mmol/L (3.5-5.1)
[2024-07-17] MEDS: FAMOTIDINE 20MG IV PUSH 20 MG/5 ML SYR IV SCH (08:47)
[2024-07-17 08:49] LABS: Appearance Urine Cloudy (Clear); Bacteria Urine Automated 2+ (None Seen); Bilirubin Urine 1+ (Negative); Blood Urine Negative (Negative); Color Urine Dark Yellow; Epithelial Cell Urine Auto >20 /hpf (0-2); Glucose Urine UA Negative (Negative); Ketones Urine 1+ (Negative); Leukocyte Esterase Urine Trace (Negative); Mucus Urine Present (None Prsent); Nitrite Urine Negative (Negative); Protein Urine 3+ (Negative); RBC Urine Automated 0-2 /hpf (0-2); Specific Gravity Urine 1.031 (1.000-1.030); Urobilinogen Urine Negative (Negative)
[2024-07-17 08:51] LABS: Basophils # (auto) 0.06 K/uL (0.00-0.20); Basophils % (auto) 0.2 %; Eosinophils # (auto) 0.01 K/uL (0.00-0.50); Immature Granulocytes # (auto) 0.22 K/uL (0.01-0.20); Immature Granulocytes % (auto) 0.9 %; Lymphocytes # (auto) 2.21 K/uL (1.20-3.40); Monocytes # (auto) 0.47 K/uL (0.11-0.59); Monocytes % (auto) 1.9 %; Neutrophils # (auto) 21.57 K/uL (1.40-6.50)
[2024-07-17 08:59] LABS: Amphetamines+Metham, Urine Neg (Neg); Barbiturates, Urine Neg (Neg); Benzodiazepine, Urine Neg (Neg); Cocaine, Urine Neg (Neg); Fentanyl, Urine Neg (Neg); MDMA (Ecstacy), Urine Neg (Neg); Marijuana, Urine Pos (Neg); Methadone, Urine Neg (Neg); Opiate, Urine Neg (Neg); Phencyclidine, Urine Neg (Neg)
--- NOTE | 2024-07-17 09:08 | OB/GYN Consultation ---
Date of Consultation July 17, 2024 Assessment & Plan (1) Irregular contractions: patient is a 29-year-old -0-2-0 at 38 weeks and 1 day gestation who is presenting with nausea vomiting, dehydration, irregular uterine contractions, not going into labor, Patient appears tired and dehydrated desires medications for nausea and sleep, Cervix is still closed but effaced little more than before, uterine contractions either from dehydration or early labor, Large ketones in urine from persistent nausea vomiting since yesterday and history of cyclic vomiting syndrome, heart rate reassuring, Plan to monitor here in labor and delivery IV fluid hydration, pain medication to help with contraction pain and to sleep, add Reglan to antiemetics, continue to monitor closely, Will recheck her cervix, All questions are answered, I informed hospitalist who is taking care of the patient and medicine depart ment. (2) Cyclic vomiting syndrome: (3) History of drug abuse: (4) Marijuana use: (5) Nausea and vomiting during : (6) Dehydration during : History of Present Illness Attending Physician: Jose Norman MD History of Present Illness Patient is a 29-year-old -0-2-0 at 38 weeks and 1 day gestation who has been having nausea vomiting, unable to eat or drink since yesterday afternoon followed by contractions. She presented to labor and delivery around 6 PM yesterday when her cervix was closed x 2 checked 2 hours apart. She was sent home. She presented again to labor and delivery around 1:30 AM this morning when she was having regular contractions and her cervix was closed. she was sent home again. She presented to the ER this morning and she was admitted under medicine after discussion with hospitalist on-call and OB on-call. Nursing team called up here to get an OB nurse to evaluate for contractions. Our charge nurse went down to see her and she was waking up with contractions and brought her up to labor and delivery. Patient was snoring, sleeping when I came to the room. few minutes after we went back again with her nurse and she woke up. She states that she feels little better since she got Reglan and Zofran for nausea but her urine is still very small and dark. She still has painful contractions, when they come pain is 8 at the highest, usually lower. She denies leakage of fluid or vaginal bleeding. She reports good movements. she states she is tired she has been up since last night she just wants to sleep. Her has been complicated by, 1. high risk , history of polydrug use, patient states she uses medical marijuana, last use was 3 days ago, per urine drug screening on June 20 it was positive for ecstasy, 2. History of bipolar disorder, on Abilify, Lexapro, gabapentin, sees psychiatry, 3. GERD, gallbladder stones, history of GI bleeds, seen by metalworking specialist here deferred endoscopy due to , 4. History of genital herpes, on valacyclovir for prophylaxis, 5. Medication exposure during 1st trimester, 6. Smoking, tobacco use, Allergies Allergy/AdvReac Type Severity Reaction Status Date / Time No Known Allergies Allergy Verified 06/19/24 19:30 Home Medications Medication Instructions Recorded Confirmed Type omeprazole 40 mg capsule,delayed 40 mg PO BID 01/26/23 07/17/24 History release aripiprazole 15 mg tablet 15 mg PO QAM 01/11/24 07/17/24 History escitalopram oxalate 20 mg tablet 20 mg PO QAM 01/11/24 07/17/24 History ondansetron 4 mg disintegrating 4 mg PO Q6H PRN nausea and 01/11/24 07/17/24 Rx tablet vomiting #10 tabs vit no.95-ferrous 1 tab PO DAILY 01/11/24 07/17/24 History fumarate 28 mg-folic acid 800 mcg tablet () promethazine 25 mg tablet 25 mg PO Q6H PRN nausea and 01/11/24 07/17/24 Rx vomiting #12 tabs famotidine 40 mg tablet 40 mg PO BID 06/20/24 07/17/24 History gabapentin 300 mg capsule 300 mg PO BID PRN Pain 07/17/24 07/17/24 History valacyclovir 500 mg tablet 500 mg PO BID 07/17/24 07/17/24 History Patient History Medical History PTSD (post-traumatic stress disorder) Bipolar 1 disorder Cyclic vomiting syndrome Scoliosis History of drug abuse clean since 02/2021 Depression Anxiety Acid reflux Marijuana use medical marijuana for anxiety/ depression Surgical History History of open reduction and internal fixation (ORIF) procedure left elbow Hx of tooth extraction Family History Other No family history of adverse response to anesthesia Social History Smoking Status: Current every day smoker Tobacco Type: Cigarettes Cigarettes Per Day: 10; Second Hand Exposure: Yes; Do You Dip or Chew Tobacco: No; Hx Alcohol Use: No Hx Substance Use: Yes Last Used Substance: Days (ago) Last Used Substance Other:: 07/15/2024 Substance Use Type Other:: medical marijuana - pt states she has a card Preferred Language: Kiswahili Communication Ability: Effective 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 Beliefs That Will Affect Care: None marital status: Single Current Living Situation: Family and Significant Other Current Living Situation Comment: Pt lives with her mother and father and fiance Other Information That Helps Us Care for You: No Feels Safe at Home: Yes Assistive Devices: Contacts, Denture - Upper and Denture - Lower Review of Systems Constitutional: as per Subjective / HPI Physical Exam Constitutional: WD/WN, vitals as above well developed, + acute distress, + frail appearing and + lethargic Gastrointestinal (Abdomen): normal bowel sounds, soft, nontender, no hepatosplenomegaly ( Contractions are palpated) Genitourinary: normal external appearance OB Exam Abdomen: + vertex Manual OB Exam: + cervical dilation fingertip (0.5), + cervical effacement 70% and + station high OB Exam Monitor Tracing: + external uterine monitor used and + category I Results & Data Vital Signs (Past 12 Hours) Vital Signs Temp Pulse Pulse Resp BP BP Pulse Ox 07/17/24 08:53 63 99 07/17/24 08:52 57 L 143/82 H 07/17/24 08:48 101 H 98 07/17/24 08:43 70 98 07/17/24 08:38 81 96 07/17/24 08:33 71 94 07/17/24 08:28 59 L 93 07/17/24 08:23 59 L 93 07/17/24 08:18 63 92 07/17/24 08:14 63 91 07/17/24 08:13 71 98 07/17/24 08:11 52 L 146/85 H 07/17/24 07:25 61 07/17/24 07:04 07/17/24 07:02 36.4 C L 62 18 121/74 92 07/17/24 06:24 36.6 C 07/17/24 06:14 75 17 141/89 H 98 07/17/24 05:44 83 20 139/92 98 07/17/24 05:15 56 L 19 96 07/17/24 05:01 64 22 132/87 93 07/17/24 04:30 131/90 07/17/24 04:23 74 19 131/90 97 07/17/24 04:05 74 23 129/77 96 07/17/24 04:01 58 L 19 129/77 98 07/17/24 03:32 60 19 146/92 H 95 07/17/24 03:03 58 L 20 151/89 H 98 07/17/24 02:36 55 L 16 144/109 H 93 07/17/24 02:19 60 07/17/24 02:14 98 07/17/24 00:25 36.5 C 64 16 124/80 98 O2 Del Method 07/17/24 08:53 07/17/24 08:52 07/17/24 08:48 07/17/24 08:43 07/17/24 08:38 07/17/24 08:33 07/17/24 08:28 07/17/24 08:23 07/17/24 08:18 07/17/24 08:14 07/17/24 08:13 07/17/24 08:11 07/17/24 07:25 07/17/24 07:04 Room Air 07/17/24 07:02 Room Air 07/17/24 06:24 Room Air 07/17/24 06:14 Room Air 07/17/24 05:44 Room Air 07/17/24 05:15 Room Air 07/17/24 05:01 Room Air 07/17/24 04:30 07/17/24 04:23 07/17/24 04:05 Room Air 07/17/24 04:01 Room Air 07/17/24 03:32 Room Air 07/17/24 03:03 Room Air 07/17/24 02:36 Room Air 07/17/24 02:19 07/17/24 02:14 Room Air 07/17/24 00:25 Room Air Laboratory Results 07/17/24 07/17/2407/17/24 Range/Units Unknown Unknown Unknown WBC (4.8-10.8) K/ul RBC (4.20-5.40) M/uL Hgb (12.0-16.0) g/dl Hct (37.0-47.0) % MCV (80.0-100.0) fL MCH (25.0-34.0) pg MCHC (32.0-36.0) g/dL RDW Std Deviation (36.4-46.3) fL RDW Coeff of Ranjit (11.5-14.5) % Plt Count (130-400) K/uL MPV (9.4-12.4) fL Immature Gran % (Auto) % Neut % (Auto) % Lymph % (Auto) % [place] % (Auto) % Eos % (Auto) % Baso % (Auto) % Neut # (Auto) (1.40-6.50) K/uL Lymph # (Auto) (1.20-3.40) K/uL [place] # (Auto) (0.11-0.59) K/uL Eos # (Auto) (0.00-0.50) K/uL Baso # (Auto) (0.00-0.20) K/uL Immature Gran # (Auto) (0.01-0.20) K/uL Sodium (136-145) mmol/L Potassium (3.5-5.1) mmol/L Chloride (98-107) mmol/L Carbon Dioxide (21-32) mmol/L Anion Gap (3-11) BUN (6-23) mg/dl Creatinine (0.6-1.2) mg/dl Est Cr Clr Drug Dosing eGFR BUN/Creatinine Ratio (10-20) Glucose (70-99(Fasting)) mg/dl Calcium (8.6-10.3) mg/dl Magnesium (1.7-2.4) mg/dl Total Bilirubin (0.2-1.0) mg/dl AST (13-39) U/L ALT (7-52) U/L Alkaline Phosphatase (34-104) U/L Total Protein (6.0-8.3) gm/dl Albumin (3.4-5.0) gm/dl Globulin (2.5-4.0) gm/dl Albumin/Globulin Ratio (0.9-2) Lipase (11-82) U/L Urine Color Urine Appearance (Clear) Urine pH (4.5-7.5) Ur Specific [place] (1.000-1.030) Urine Protein (Negative) Urine Glucose (UA) (Negative) Urine Ketones (Negative) Urine Blood (Negative) Urine Nitrite (Negative) Urine Bilirubin (Negative) Urine Urobilinogen (Negative) Ur Leukocyte Esterase (Negative) Urine WBC (Auto) (0-5) /hpf Urine RBC (Auto) (0-2) /hpf U Hyaline Cast (Auto) (0-2) /lpf U Epithel Cells (Auto) >20 H (0-2) /hpf Urine Bacteria (Auto) 2+ H 3+ H (None Seen) Urine Mucus Present A Present A (None Prsent) Urine Opiates Screen Neg (Neg) Ur Methadone, Qual Neg (Neg) Urine Fentanyl Screen Neg (Neg) Urine Barbiturates Neg (Neg) Ur Phencyclidine (PCP) Neg (Neg) U Amphetamin/Meth Scrn Neg (Neg) MDMA (Ecstasy) Screen Neg (Neg) U Benzodiazepines Scrn Neg (Neg) Ur Cocaine Metabolite Neg (Neg) U Marijuana (THC) Screen Pos H (Neg) U Marijuana THC Carboxy Pending Drug Screen Comment Pending 07/17/24 07/17/24 07/17/24 Range/Units Unknown Unknown Unknown WBC (4.8-10.8) K/ul RBC (4.20-5.40) M/uL Hgb (12.0-16.0) g/dl Hct (37.0-47.0) % MCV (80.0-100.0) fL MCH (25.0-34.0) pg MCHC (32.0-36.0) g/dL RDW Std Deviation (36.4-46.3) fL RDW Coeff of Ranjit (11.5-14.5) % Plt Count (130-400) K/uL MPV (9.4-12.4) fL Immature Gran % (Auto) % Neut % (Auto) % Lymph % (Auto) % [place] % (Auto) % Eos % (Auto) % Baso % (Auto) % Neut # (Auto) (1.40-6.50) K/uL Lymph # (Auto) (1.20-3.40) K/uL [place] # (Auto) (0.11-0.59) K/uL Eos # (Auto) (0.00-0.50) K/uL Baso # (Auto) (0.00-0.20) K/uL Immature Gran # (Auto) (0.01-0.20) K/uL Sodium (136-145) mmol/L Potassium (3.5-5.1) mmol/L Chloride (98-107) mmol/L Carbon Dioxide (21-32) mmol/L Anion Gap (3-11) BUN (6-23) mg/dl Creatinine (0.6-1.2) mg/dl Est Cr Clr Drug Dosing eGFR BUN/Creatinine Ratio (10-20) Glucose (70-99(Fasting)) mg/dl Calcium (8.6-10.3) mg/dl Magnesium (1.7-2.4) mg/dl Total Bilirubin (0.2-1.0) mg/dl AST (13-39) U/L ALT (7-52) U/L Alkaline Phosphatase (34-104) U/L Total Protein (6.0-8.3) gm/dl Albumin (3.4-5.0) gm/dl Globulin (2.5-4.0) gm/dl Albumin/Globulin Ratio (0.9-2) Lipase (11-82) U/L Urine Color Urine Appearance (Clear) Urine pH (4.5-7.5) Ur Specific [place] (1.000-1.030) Urine Protein (Negative) Urine Glucose (UA) (Negative) Urine Ketones (Negative) Urine Blood (Negative) Urine Nitrite (Negative) Urine Bilirubin (Negative) Urine Urobilinogen (Negative) Ur Leukocyte Esterase (Negative) Urine WBC (Auto) 6-10 H (0-5) /hpf Urine RBC (Auto) 0-2 0-2 (0-2) /hpf U Hyaline Cast (Auto) 6-10 H 3-5 H (0-2) /lpf U Epithel Cells (Auto) >20 H (0-2) /hpf Urine Bacteria (Auto) (None Seen) Urine Mucus (None Prsent) Urine Opiates Screen (Neg) Ur Methadone, Qual (Neg) Urine Fentanyl Screen (Neg) Urine Barbiturates (Neg) Ur Phencyclidine (PCP) (Neg) U Amphetamin/Meth Scrn (Neg) MDMA (Ecstasy) Screen (Neg) U Benzodiazepines Scrn (Neg) Ur Cocaine Metabolite (Neg) U Marijuana (THC) Screen (Neg) U Marijuana THC Carboxy Drug Screen Comment 07/17/24 07/17/24 07/17/24 Range/Units Unknown Unknown Unknown WBC (4.8-10.8) K/ul RBC (4.20-5.40) M/uL Hgb (12.0-16.0) g/dl Hct (37.0-47.0) % MCV (80.0-100.0) fL MCH (25.0-34.0) pg MCHC (32.0-36.0) g/dL RDW Std Deviation (36.4-46.3) fL RDW Coeff of Ranjit (11.5-14.5) % Plt Count (130-400) K/uL MPV (9.4-12.4) fL Immature Gran % (Auto) % Neut % (Auto) % Lymph % (Auto) % [place] % (Auto) % Eos % (Auto) % Baso % (Auto) % Neut # (Auto) (1.40-6.50) K/uL Lymph # (Auto) (1.20-3.40) K/uL [place] # (Auto) (0.11-0.59) K/uL Eos # (Auto) (0.00-0.50) K/uL Baso # (Auto) (0.00-0.20) K/uL Immature Gran # (Auto) (0.01-0.20) K/uL Sodium (136-145) mmol/L Potassium (3.5-5.1) mmol/L Chloride (98-107) mmol/L Carbon Dioxide (21-32) mmol/L Anion Gap (3-11) BUN (6-23) mg/dl Creatinine (0.6-1.2) mg/dl Est Cr Clr Drug Dosing eGFR BUN/Creatinine Ratio (10-20) Glucose (70-99(Fasting)) mg/dl Calcium (8.6-10.3) mg/dl Magnesium (1.7-2.4) mg/dl Total Bilirubin (0.2-1.0) mg/dl AST (13-39) U/L ALT (7-52) U/L Alkaline Phosphatase (34-104) U/L Total Protein (6.0-8.3) gm/dl Albumin (3.4-5.0) gm/dl Globulin (2.5-4.0) gm/dl Albumin/Globulin Ratio (0.9-2) Lipase (11-82) U/L Urine Color Urine Appearance (Clear) Urine pH (4.5-7.5) Ur Specific [place] (1.000-1.030) Urine Protein (Negative) Urine Glucose (UA) (Negative) Urine Ketones (Negative) Urine Blood (Negative) Urine Nitrite (Negative) Urine Bilirubin 1+ H (Negative) Urine Urobilinogen Negative Negative (Negative) Ur Leukocyte Esterase Trace H Trace H (Negative) Urine WBC (Auto) 11-20 H (0-5) /hpf Urine RBC (Auto) (0-2) /hpf U Hyaline Cast (Auto) (0-2) /lpf U Epithel Cells (Auto) (0-2) /hpf Urine Bacteria (Auto) (None Seen) Urine Mucus (None Prsent) Urine Opiates Screen (Neg) Ur Methadone, Qual (Neg) Urine Fentanyl Screen (Neg) Urine Barbiturates (Neg) Ur Phencyclidine (PCP) (Neg) U Amphetamin/Meth Scrn (Neg) MDMA (Ecstasy) Screen (Neg) U Benzodiazepines Scrn (Neg) Ur Cocaine Metabolite (Neg) U Marijuana (THC) Screen (Neg) U Marijuana THC Carboxy Drug Screen Comment 07/17/24 07/17/24 07/17/24 Range/Units Unknown Unknown Unknown WBC (4.8-10.8) K/ul RBC (4.20-5.40) M/uL Hgb (12.0-16.0) g/dl Hct (37.0-47.0) % MCV (80.0-100.0) fL MCH (25.0-34.0) pg MCHC (32.0-36.0) g/dL RDW Std Deviation (36.4-46.3) fL RDW Coeff of Ranjit (11.5-14.5) % Plt Count (130-400) K/uL MPV (9.4-12.4) fL Immature Gran % (Auto) % Neut % (Auto) % Lymph % (Auto) % [place] % (Auto) % Eos % (Auto) % Baso % (Auto) % Neut # (Auto) (1.40-6.50) K/uL Lymph # (Auto) (1.20-3.40) K/uL [place] # (Auto) (0.11-0.59) K/uL Eos # (Auto) (0.00-0.50) K/uL Baso # (Auto) (0.00-0.20) K/uL Immature Gran # (Auto) (0.01-0.20) K/uL Sodium (136-145) mmol/L Potassium (3.5-5.1) mmol/L Chloride (98-107) mmol/L Carbon Dioxide (21-32) mmol/L Anion Gap (3-11) BUN (6-23) mg/dl Creatinine (0.6-1.2) mg/dl Est Cr Clr Drug Dosing eGFR BUN/Creatinine Ratio (10-20) Glucose (70-99(Fasting)) mg/dl Calcium (8.6-10.3) mg/dl Magnesium (1.7-2.4) mg/dl Total Bilirubin (0.2-1.0) mg/dl AST (13-39) U/L ALT (7-52) U/L Alkaline Phosphatase (34-104) U/L Total Protein (6.0-8.3) gm/dl Albumin (3.4-5.0) gm/dl Globulin (2.5-4.0) gm/dl Albumin/Globulin Ratio (0.9-2) Lipase (11-82) U/L Urine Color Urine Appearance (Clear) Urine pH (4.5-7.5) Ur Specific [place] (1.000-1.030) Urine Protein (Negative) Urine Glucose (UA) (Negative) Urine Ketones 1+ H (Negative) Urine Blood Negative Trace H (Negative) Urine Nitrite Negative Negative (Negative) Urine Bilirubin 1+ H (Negative) Urine Urobilinogen (Negative) Ur Leukocyte Esterase (Negative) Urine WBC (Auto) (0-5) /hpf Urine RBC (Auto) (0-2) /hpf U Hyaline Cast (Auto) (0-2) /lpf U Epithel Cells (Auto) (0-2) /hpf Urine Bacteria (Auto) (None Seen) Urine Mucus (None Prsent) Urine Opiates Screen (Neg) Ur Methadone, Qual (Neg) Urine Fentanyl Screen (Neg) Urine Barbiturates (Neg) Ur Phencyclidine (PCP) (Neg) U Amphetamin/Meth Scrn (Neg) MDMA (Ecstasy) Screen (Neg) U Benzodiazepines Scrn (Neg) Ur Cocaine Metabolite (Neg) U Marijuana (THC) Screen (Neg) U Marijuana THC Carboxy Drug Screen Comment 07/17/24 07/17/24 07/17/24 Range/Units Unknown Unknown Unknown WBC (4.8-10.8) K/ul RBC (4.20-5.40) M/uL Hgb (12.0-16.0) g/dl Hct (37.0-47.0) % MCV (80.0-100.0) fL MCH (25.0-34.0) pg MCHC (32.0-36.0) g/dL RDW Std Deviation (36.4-46.3) fL RDW Coeff of Ranjit (11.5-14.5) % Plt Count (130-400) K/uL MPV (9.4-12.4) fL Immature Gran % (Auto) % Neut % (Auto) % Lymph % (Auto) % [place] % (Auto) % Eos % (Auto) % Baso % (Auto) % Neut # (Auto) (1.40-6.50) K/uL Lymph # (Auto) (1.20-3.40) K/uL [place] # (Auto) (0.11-0.59) K/uL Eos # (Auto) (0.00-0.50) K/uL Baso # (Auto) (0.00-0.20) K/uL Immature Gran # (Auto) (0.01-0.20) K/uL Sodium (136-145) mmol/L Potassium (3.5-5.1) mmol/L Chloride (98-107) mmol/L Carbon Dioxide (21-32) mmol/L Anion Gap (3-11) BUN (6-23) mg/dl Creatinine (0.6-1.2) mg/dl Est Cr Clr Drug Dosing eGFR BUN/Creatinine Ratio (10-20) Glucose (70-99(Fasting)) mg/dl Calcium (8.6-10.3) mg/dl Magnesium (1.7-2.4) mg/dl Total Bilirubin (0.2-1.0) mg/dl AST (13-39) U/L ALT (7-52) U/L Alkaline Phosphatase (34-104) U/L Total Protein (6.0-8.3) gm/dl Albumin (3.4-5.0) gm/dl Globulin (2.5-4.0) gm/dl Albumin/Globulin Ratio (0.9-2) Lipase (11-82) U/L Urine Color Urine Appearance (Clear) Urine pH (4.5-7.5) Ur Specific [place] 1.031 H (1.000-1.030) Urine Protein 3+ H 3+ H (Negative) Urine Glucose (UA) Negative Negative (Negative) Urine Ketones 2+ H (Negative) Urine Blood (Negative) Urine Nitrite (Negative) Urine Bilirubin (Negative) Urine Urobilinogen (Negative) Ur Leukocyte Esterase (Negative) Urine WBC (Auto) (0-5) /hpf Urine RBC (Auto) (0-2) /hpf U Hyaline Cast (Auto) (0-2) /lpf U Epithel Cells (Auto) (0-2) /hpf Urine Bacteria (Auto) (None Seen) Urine Mucus (None Prsent) Urine Opiates Screen (Neg) Ur Methadone, Qual (Neg) Urine Fentanyl Screen (Neg) Urine Barbiturates (Neg) Ur Phencyclidine (PCP) (Neg) U Amphetamin/Meth Scrn (Neg) MDMA (Ecstasy) Screen (Neg) U Benzodiazepines Scrn (Neg) Ur Cocaine Metabolite (Neg) U Marijuana (THC) Screen (Neg) U Marijuana THC Carboxy Drug Screen Comment 07/17/24 07/17/24 07/17/24 Range/Units Unknown Unknown Unknown WBC (4.8-10.8) K/ul RBC (4.20-5.40) M/uL Hgb (12.0-16.0) g/dl Hct (37.0-47.0) % MCV (80.0-100.0) fL MCH (25.0-34.0) pg MCHC (32.0-36.0) g/dL RDW Std Deviation (36.4-46.3) fL RDW Coeff of Ranjit (11.5-14.5) % Plt Count (130-400) K/uL MPV (9.4-12.4) fL Immature Gran % (Auto) % Neut % (Auto) % Lymph % (Auto) % [place] % (Auto) % Eos % (Auto) % Baso % (Auto) % Neut # (Auto) (1.40-6.50) K/uL Lymph # (Auto) (1.20-3.40) K/uL [place] # (Auto) (0.11-0.59) K/uL Eos # (Auto) (0.00-0.50) K/uL Baso # (Auto) (0.00-0.20) K/uL Immature Gran # (Auto) (0.01-0.20) K/uL Sodium (136-145) mmol/L Potassium (3.5-5.1) mmol/L Chloride (98-107) mmol/L Carbon Dioxide (21-32) mmol/L Anion Gap (3-11) BUN (6-23) mg/dl Creatinine (0.6-1.2) mg/dl Est Cr Clr Drug Dosing eGFR BUN/Creatinine Ratio (10-20) Glucose (70-99(Fasting)) mg/dl Calcium (8.6-10.3) mg/dl Magnesium (1.7-2.4) mg/dl Total Bilirubin (0.2-1.0) mg/dl AST (13-39) U/L ALT (7-52) U/L Alkaline Phosphatase (34-104) U/L Total Protein (6.0-8.3) gm/dl Albumin (3.4-5.0) gm/dl Globulin (2.5-4.0) gm/dl Albumin/Globulin Ratio (0.9-2) Lipase (11-82) U/L Urine Color Dark Yellow Urine Appearance Cloudy A Cloudy A (Clear) Urine pH 6.0 5.5 (4.5-7.5) Ur Specific [place] 1.033 H (1.000-1.030) Urine Protein (Negative) Urine Glucose (UA) (Negative) Urine Ketones (Negative) Urine Blood (Negative) Urine Nitrite (Negative) Urine Bilirubin (Negative) Urine Urobilinogen (Negative) Ur Leukocyte Esterase (Negative) Urine WBC (Auto) (0-5) /hpf Urine RBC (Auto) (0-2) /hpf U Hyaline Cast (Auto) (0-2) /lpf U Epithel Cells (Auto) (0-2) /hpf Urine Bacteria (Auto) (None Seen) Urine Mucus (None Prsent) Urine Opiates Screen (Neg) Ur Methadone, Qual (Neg) Urine Fentanyl Screen (Neg) Urine Barbiturates (Neg) Ur Phencyclidine (PCP) (Neg) U Amphetamin/Meth Scrn (Neg) MDMA (Ecstasy) Screen (Neg) U Benzodiazepines Scrn (Neg) Ur Cocaine Metabolite (Neg) U Marijuana (THC) Screen (Neg) U Marijuana THC Carboxy Drug Screen Comment 07/17/24 07/17/24 07/17/24 Range/Units Unknown 08:00 00:43 WBC 24.54 H 21.82 H (4.8-10.8) K/ul RBC 4.38 4.58 (4.20-5.40) M/uL Hgb 12.6 12.9 (12.0-16.0) g/dl Hct 37.1 38.7 (37.0-47.0) % MCV 84.7 84.5 (80.0-100.0) fL MCH 28.8 28.2 (25.0-34.0) pg MCHC 34.0 33.3 (32.0-36.0) g/dL RDW Std Deviation 45.8 45.4 (36.4-46.3) fL RDW Coeff of Ranjit 15.6 H 15.5 H (11.5-14.5) % Plt Count 402 H 430 H (130-400) K/uL MPV 10.9 11.1 (9.4-12.4) fL Immature Gran % (Auto) 0.9 1.2 % Neut % (Auto) 88.0 85.3 % Lymph % (Auto) 9.0 10.6 % [place] % (Auto) 1.9 2.5 % Eos % (Auto) 0.0 0.0 % Baso % (Auto) 0.2 0.4 % Neut # (Auto) 21.57 H 18.61 H (1.40-6.50) K/uL Lymph # (Auto) 2.21 2.32 (1.20-3.40) K/uL [place] # (Auto) 0.47 0.54 (0.11-0.59) K/uL Eos # (Auto) 0.01 0.01 (0.00-0.50) K/uL Baso # (Auto) 0.06 0.08 (0.00-0.20) K/uL Immature Gran # (Auto) 0.22 H 0.26 H (0.01-0.20) K/uL Sodium 141 137 (136-145) mmol/L Potassium 4.1 3.6 (3.5-5.1) mmol/L Chloride 108 H 106 (98-107) mmol/L Carbon Dioxide 19 L 18 L (21-32) mmol/L Anion Gap 14 H 13 H (3-11) BUN 16 16 (6-23) mg/dl Creatinine 0.76 0.82 (0.6-1.2) mg/dl Est Cr Clr Drug Dosing 104.9 Not Reportable eGFR 108.04 98.62 BUN/Creatinine Ratio 21.1 H 19.5 (10-20) Glucose 108 H 109 H (70-99(Fasting)) mg/dl Calcium 9.1 9.7 (8.6-10.3) mg/dl Magnesium 1.9 (1.7-2.4) mg/dl Total Bilirubin 0.5 (0.2-1.0) mg/dl AST 23 (13-39) U/L ALT 22 (7-52) U/L Alkaline Phosphatase 620 H (34-104) U/L Total Protein 7.7 (6.0-8.3) gm/dl Albumin 4.4 (3.4-5.0) gm/dl Globulin 3.3 (2.5-4.0) gm/dl Albumin/Globulin Ratio 1.3 (0.9-2) Lipase 60 (11-82) U/L Urine Color Dark Yellow Urine Appearance (Clear) Urine pH (4.5-7.5) Ur Specific [place] (1.000-1.030) Urine Protein (Negative) Urine Glucose (UA) (Negative) Urine Ketones (Negative) Urine Blood (Negative) Urine Nitrite (Negative) Urine Bilirubin (Negative) Urine Urobilinogen (Negative) Ur Leukocyte Esterase (Negative) Urine WBC (Auto) (0-5) /hpf Urine RBC (Auto) (0-2) /hpf U Hyaline Cast (Auto) (0-2) /lpf U Epithel Cells (Auto) (0-2) /hpf Urine Bacteria (Auto) (None Seen) Urine Mucus (None Prsent) Urine Opiates Screen (Neg) Ur Methadone, Qual (Neg) Urine Fentanyl Screen (Neg) Urine Barbiturates (Neg) Ur Phencyclidine (PCP) (Neg) U Amphetamin/Meth Scrn (Neg) MDMA (Ecstasy) Screen (Neg) U Benzodiazepines Scrn (Neg) Ur Cocaine Metabolite (Neg) U Marijuana (THC) Screen (Neg) U Marijuana THC Carboxy Drug Screen Comment
[2024-07-17] MEDS: METOCLOPRAMIDE HCL INJ 5 MG/ML 2 ML VIAL IV PRN (09:09)
[2024-07-17] MEDS: BUTORPHANOL TARTRATE 2 MG/ML VIAL IV PRN (09:10)
[2024-07-17] MEDS: D5W AND LACTATED RINGERS 1,000 ML IV SCH (09:11)
[2024-07-17 10:24] VITALS: O2SAT 99
[2024-07-17 11:48] VITALS: RESP 20; TEMP 98.1
[2024-07-17] MEDS: cefTRIAXone SODIUM 1,000 MG/50 ML BAG IV ONE (12:41)
[2024-07-17 12:56] VITALS: BP 121/74; PULSE 62
--- NOTE | 2024-07-17 12:56 | Obstetrical Progress Note ---
Date of Service July 17, 2024 Assessment & Plan Admission and Anticipated Discharge Date Admission Date: July 17, 2024 Subjective Patient is reevaluated. She feels much better no more nausea vomiting since I checked her this morning. She slept woke up with no pain. Contractions stopped she has used the bathroom few more times and her urine is getting ladies' locker room attendant. She denies contractions, leakage of fluid, vaginal bleeding. She reports good movements. I rechecked her cervix it is unchanged fingertip, 70% -3. heart rate category 1, toco no contractions. Patient desires to go home, she already called her boyfriend to pick her up. Dr. Goodrich from medical department recommended IV antibiotic before she would lay which is being given now. I prescribed her Zofran, Reglan, Keflex to start tomorrow if the cultures will be positive for UTI, She will be 39 weeks on July 23, she is scheduled for induction of labor then recommended to call back if starts before then. Discharge home and follow-up in office this week and then here for induction of labor, All questions were answered. Results & Data Vital Signs (Past 12 Hours) Vital Signs Temp Pulse Pulse Resp BP BP Pulse Ox 07/17/24 11:38 20 07/17/24 11:38 36.7 C 20 07/17/24 11:38 90 07/17/24 11:38 121/56 L 07/17/24 10:23 99 07/17/24 10:23 61 07/17/24 10:18 96 07/17/24 10:18 62 07/17/24 10:13 96 07/17/24 10:13 58 L 07/17/24 10:08 99 07/17/24 10:08 70 07/17/24 10:03 99 07/17/24 10:03 68 07/17/24 09:58 99 07/17/24 09:58 80 07/17/24 09:53 98 07/17/24 09:53 73 07/17/24 09:48 98 07/17/24 09:48 65 07/17/24 09:43 96 07/17/24 09:43 63 07/17/24 09:38 93 07/17/24 09:38 71 07/17/24 09:33 92 07/17/24 09:33 69 07/17/24 09:28 92 07/17/24 09:28 71 07/17/24 09:23 92 07/17/24 09:23 75 07/17/24 09:18 89 L 07/17/24 09:18 74 07/17/24 09:13 79 07/17/24 09:13 113/71 07/17/24 09:13 94 07/17/24 09:13 72 07/17/24 09:08 98 07/17/24 09:08 67 07/17/24 09:03 94 07/17/24 09:03 67 07/17/24 08:58 64 93 07/17/24 08:53 63 99 07/17/24 08:52 57 L 143/82 H 07/17/24 08:48 101 H 98 07/17/24 08:43 70 98 07/17/24 08:38 81 96 07/17/24 08:33 71 94 07/17/24 08:28 59 L 93 07/17/24 08:23 59 L 93 07/17/24 08:18 63 92 07/17/24 08:14 63 91 07/17/24 08:13 71 98 07/17/24 08:11 36.8 C 52 L 22 146/85 H 07/17/24 07:25 61 07/17/24 07:04 07/17/24 07:02 36.4 C L 62 18 121/74 92 07/17/24 06:24 36.6 C 07/17/24 06:14 75 17 141/89 H 98 07/17/24 05:44 83 20 139/92 98 07/17/24 05:15 56 L 19 96 07/17/24 05:01 64 22 132/87 93 07/17/24 04:30 131/90 07/17/24 04:23 74 19 131/90 97 07/17/24 04:05 74 23 129/77 96 07/17/24 04:01 58 L 19 129/77 98 07/17/24 03:32 60 19 146/92 H 95 07/17/24 03:03 58 L 20 151/89 H 98 07/17/24 02:36 55 L 16 144/109 H 93 07/17/24 02:19 60 07/17/24 02:14 98 O2 Del Method 07/17/24 11:38 07/17/24 11:38 07/17/24 11:38 07/17/24 11:38 07/17/24 10:23 07/17/24 10:23 07/17/24 10:18 07/17/24 10:18 07/17/24 10:13 07/17/24 10:13 07/17/24 10:08 07/17/24 10:08 07/17/24 10:03 07/17/24 10:03 07/17/24 09:58 07/17/24 09:58 07/17/24 09:53 07/17/24 09:53 07/17/24 09:48 07/17/24 09:48 07/17/24 09:43 07/17/24 09:43 07/17/24 09:38 07/17/24 09:38 07/17/24 09:33 07/17/24 09:33 07/17/24 09:28 07/17/24 09:28 07/17/24 09:23 07/17/24 09:23 07/17/24 09:18 07/17/24 09:18 07/17/24 09:13 07/17/24 09:13 07/17/24 09:13 07/17/24 09:13 07/17/24 09:08 07/17/24 09:08 07/17/24 09:03 07/17/24 09:03 07/17/24 08:58 07/17/24 08:53 07/17/24 08:52 07/17/24 08:48 07/17/24 08:43 07/17/24 08:38 07/17/24 08:33 07/17/24 08:28 07/17/24 08:23 07/17/24 08:18 07/17/24 08:14 07/17/24 08:13 07/17/24 08:11 07/17/24 07:25 07/17/24 07:04 Room Air 07/17/24 07:02 Room Air 07/17/24 06:24 Room Air 07/17/24 06:14 Room Air 07/17/24 05:44 Room Air 07/17/24 05:15 Room Air 07/17/24 05:01 Room Air 07/17/24 04:30 07/17/24 04:23 07/17/24 04:05 Room Air 07/17/24 04:01 Room Air 07/17/24 03:32 Room Air 07/17/24 03:03 Room Air 07/17/24 02:36 Room Air 07/17/24 02:19 07/17/24 02:14 Room Air
--- NOTE | 2024-07-17 13:02 | Discharge Summary ---
Date of Service July 17, 2024 Admission HPI Per Admitting Provider 29-year-old female 38 weeks and past medical history significant for GERD, herpes infection in , bipolar disorder, nicotine dependence, polysubstance abuse, marijuana use during comes with persistent nausea and vomiting. Patient states having nausea and vomiting since yesterday morning and has been persistent. She is also having a lot of contractions. She was seen by NIGHT MANAGER twice in the ER. Denies any fevers. No headache. No runny nose or sore throat. No cough. No chest pain or shortness of breath. Recently in the hospital for GI bleed as hemoglobin was stable EGD was not done and also patient signed out AMA during that admission. Past medical history. As mentioned above Past surgical history. EGD. Dental surgery. Elbow surgery. Social history. Smokes. As per epic. No alcohol use. Smokes marijuana twice a week. Family history. Mother has alcoholism. Arthritis. Cancer. Diabetes. Hypertension. Mental disorder. Stroke. Thyroid disorder. Father has hypertension. Maternal grandmother had breast cancer. Admission Exam Per Admitting Provider General- Not in acute distress Head- atraumatic Eyes- PERRL. ENT- oropharynx clear Neck- supple, no JVD. Lungs- clear to auscultation no wheezing or crackles Heart- regular rate and rhythm; no murmur, no gallop. Abdomen- normal bowel sounds, nontender, no distension Extremities- no pretibial edema, no erythema seen Neuro- alert, oriented PERRL, no facial palsy; no dysarthria; moves extremities Principal Diagnosis Persistent nausea and vomiting 38-week Irregular contractions Discharge Exam General- WD/WN, young F Not in acute distress Head- atraumatic Eyes- PERRL. ENT- oropharynx clear Neck- supple, no JVD. Lungs- clear to auscultation no wheezing or crackles Heart- regular rate and rhythm; no murmur, no gallop. Abdomen- normal bowel sounds, nontender, gravid abdomen Extremities- no pretibial edema, no erythema seen Neuro- alert, oriented PERRL, no facial palsy; no dysarthria; moves extremities Discharge Data Allergies Allergy/AdvReac Type Severity Reaction Status Date / Time No Known Allergies Allergy Verified 06/19/24 19:30 Consultations 07/17/24 02:35 ED Decision to Admit Stat 07/17/24 08:00 Consult Obstetrics Routine Hospital Course (1) Vomitin-year-old female 38 weeks and past medical history significant for GERD, herpes infection in , bipolar disorder, nicotine dependence, polysubstance abuse, marijuana use during comes with persistent nausea and vomiting. Patient states having nausea and vomiting since yesterday morning and has been persistent. She is also having a lot of contractions. She was seen by NIGHT MANAGER twice in the ER. Denies any fevers. No headache. No runny nose or sore throat. No cough. No chest pain or shortness of breath. Recently in the hospital for GI bleed as hemoglobin was stable EGD was not done and also patient signed out AMA during that admission. Persistent nausea and vomiting 38-week received IV fluids IV Zofran as needed Patient feels much improved 38-week Complaints of contractions Evaluated already by NIGHT MANAGER twice in the ER Not in labor per NIGHT MANAGER Consulted NIGHT MANAGER - pt was transferred to OB floor and monitored closely there Discussed w/ Dr. Jolley (NIGHT MANAGER) - pt much improved and plan to discharge home, plan for induction on Friday. Urine culture pending- agreed to start empiric abx , Dr. Jolley also to prescribe oral abx, follow urine cultx. GERD IV Pepcid Possible UTI leukocytosis follow repeat ua and cultures. - as above Total Time Total Time Spent Total Time Spent (In Minutes): 40 Discharge Plan Discharge Items Patient Disposition: Home - Home Health Services Reason For Visit: PERSISTENT NAUSEA / VOMITING Discharge Diagnosis: Dehydration Activity: As commented below Sexual Activity: Wait until after follow-up appointment Exercise/Sports: Wait until after follow-up appointment Non-emergency contact: Primary Care Provider and Saw Runner Call non-emergency contact if: you have any medication questions, your pain is unusual for you and you have a fever Follow-up/Referrals: Seven Guerrero MD [Primary Care Provider] - Diet: Low Fat and Regular OB Addtl Attending Provider Instructions: SPECIAL CARE INSTRUCTIONS: Call Doctor if: * Regular contractions every 5 minutes or greater than contractions in one hour. * Bleeding * Water breaks or is leaking * Decreased movement * Fever >100.4 degrees F * Pain not relieved by routine measures or pain medication ordered. FOLLOW UP VISIT: Return to Labor and Delivery on _07/23/2024 for induction at 10 am /call for appointment time . Follow-up Visit with: When: Pending Studies at Discharge: Yes Studies:: urine culture Stand-Alone Forms: [facility], Smoking Cessation Medications and DC Order Prescriptions: New metoclopramide HCl [Reglan] 10 mg tablet 10 mg PO Q6H PRN (Reason: nausea and vomiting) Qty: 40 1RF ondansetron HCl 4 mg tablet 4 mg PO Q4 PRN (Reason: nausea and vomiting) Qty: 30 1RF cephalexin 500 mg capsule 500 mg PO TID 7 Days Qty: 21 0RF Rx Instructions: start tomorrow Continued omeprazole 40 mg capsule,delayed release(DR/EC) 40 mg PO BID escitalopram oxalate 20 mg tablet 20 mg PO QAM aripiprazole 15 mg tablet 15 mg PO QAM PNV cmb#95-ferrous fumarate-FA [] 28 mg iron- 800 mcg tablet 1 tab PO DAILY promethazine 25 mg tablet 25 mg PO Q6H PRN (Reason: nausea and vomiting) Qty: 12 0RF ondansetron 4 mg tablet,disintegrating 4 mg PO Q6H PRN (Reason: nausea and vomiting) Qty: 10 0RF famotidine 40 mg tablet 40 mg PO BID valacyclovir 500 mg tablet 500 mg PO BID gabapentin 300 mg capsule 300 mg PO BID PRN (Reason: Pain) Discharge Orders: Discharge Order (Routine); Ordered 07/17/24 Ordered By: Cody Hill Admission Data Admit Date/Time: 07/17/24 04:10 Attending Provider: Jose Norman Admit Provider: Alphonso Madden Primary Care Provider: Seven Guerrero Other Providers: Alphonso Madden; Johnson Pathak; Amina Plascencia; Trinity Zamarripa; Nicholas Tatum; Cody Hill; Negro Burdick; Luke Hernandez; Za Rocha; Yamila Jaime; Yennifer Scott; Yanni Andrews; Elisabeth Villanueva; Alia Chaudhari; Anay Chen; Shayne Alvarado; Karoline Orozco Other Interventions: Discharge Summary Assessment (RN) Last Done: 07/17/24 12:54
[2024-07-19 17:41] LABS: Marijuana Quant, GCMS Urine 3115 ng/mL (<5)
== END 2024-07-17 13:13 | disposition home health service (06) | DRG 832 ==
LOC: ED 00:17 → INTOOBSV 04:10 → 2N 04:10 → 4S1 06:24
DX: Z3A.39 39 weeks gestation of pregnancy; K21.9 Gastro-esophageal reflux disease without esophagitis; O99.283 Endocrine, nutritional and metabolic diseases complicating pregnancy, third trimester; F12.90 Cannabis use, unspecified, uncomplicated; O99.613 Diseases of the digestive system complicating pregnancy, third trimester; O99.323 Drug use complicating pregnancy, third trimester; E86.0 Dehydration; F17.210 Nicotine dependence, cigarettes, uncomplicated; Z79.899 Other long term (current) drug therapy; O23.43 Unspecified infection of urinary tract in pregnancy, third trimester; F31.9 Bipolar disorder, unspecified; O99.343 Other mental disorders complicating pregnancy, third trimester; O99.333 Smoking (tobacco) complicating pregnancy, third trimester; N39.0 Urinary tract infection, site not specified; F41.9 Anxiety disorder, unspecified; F43.10 Post-traumatic stress disorder, unspecified

== ENCOUNTER 2024-07-18 06:19 | Inpatient (IN) ==
[2024-07-18] MEDS ORDERED: CALCIUM CARBONATE 500 MG CHEWABLE TAB PO PRN ×3 (07:03→15:22)
[2024-07-18] MEDS ORDERED: ACETAMINOPHEN 325 MG TAB PO PRN (07:03)
[2024-07-18] MEDS ORDERED: METOCLOPRAMIDE HCL INJ 5 MG/ML 2 ML VIAL IV PRN (07:05)
[2024-07-18] MEDS: SODIUM CHLORIDE 0.9% 1,000 ML IV ONE (07:10)
--- NOTE | 2024-07-18 07:12 | History & Physical Report ---
Date of Service July 18, 2024 Assessment & Plan (1) Dehydration during : (2) Nausea and vomiting during : (3) Irregular contractions: Plan: 29-year-old -0-2-0 at 38 weeks and 2 days of gestation coming back with irregular contractions again, nausea unable to drink p.o. fluids, Vital signs stable afebrile, heart rate reassuring, Cervix is still closed since yesterday, GBS negative, No ketones on urine dip at bedside, patient was scheduled for induction of labor at 39 weeks yesterday, Plan to monitor, 1 L of normal saline, Stadol for pain and sleep, reevaluate, All questions were answered. History of Present Illness Chief Complaint: Contractions Primary Care Provider: Seven Guerrero MD patient is a 29-year-old -0-2-0 at 38 weeks and 3 days of gestation who is coming back with contractions. She was here yesterday for nausea vomiting dehydration, contractions and unable to sleep. She received 3 L of IV fluids and then felt much better wanted to go home. Her contractions stopped and her cervix Has not dilated. She states she went home unable to eat but has been drinking some fluids. No more vomiting. She could finish only 2 bottles since yesterday afternoon. Contractions started to come back few hours after she went home and then they have been coming every 5 minutes this morning. She states she could not sleep because of contractions and pain. She had 3 or 4 contractions since she called but then they spaced out when she came to here she had only 1 and 10 minutes. No leakage of fluid or vaginal bleeding. She reports good movements. she desires Reglan for nausea and something for pain and sleep. Her has been complicated by, 1. high risk , history of polydrug use, patient states she uses medical marijuana, last use was 3 days ago, per urine drug screening on June 20 it was positive for ecstasy, 2. History of bipolar disorder, on Abilify, Lexapro, gabapentin, sees psychiatry, 3. GERD, gallbladder stones, history of GI bleeds, seen by blanchard grinder operator here deferred endoscopy due to , 4. History of genital herpes, on valacyclovir for prophylaxis, 5. Medication exposure during 1st trimester, 6. Smoking, tobacco use, Allergies Allergy/AdvReac Type Severity Reaction Status Date / Time No Known Allergies Allergy Verified 06/19/24 19:30 Home Medications Medication Instructions Recorded Confirmed Type omeprazole 40 mg capsule,delayed 40 mg PO BID 01/26/23 07/17/24 History release aripiprazole 15 mg tablet 15 mg PO QAM 01/11/24 07/17/24 History escitalopram oxalate 20 mg tablet 20 mg PO QAM 01/11/24 07/17/24 History ondansetron 4 mg disintegrating 4 mg PO Q6H PRN nausea and 01/11/24 07/17/24 Rx tablet vomiting #10 tabs vit no.95-ferrous 1 tab PO DAILY 01/11/24 07/17/24 History fumarate 28 mg-folic acid 800 mcg tablet () promethazine 25 mg tablet 25 mg PO Q6H PRN nausea and 01/11/24 07/17/24 Rx vomiting #12 tabs famotidine 40 mg tablet 40 mg PO BID 06/20/24 07/17/24 History cephalexin 500 mg capsule 500 mg PO TID 7 days #21 caps 07/17/24 Rx gabapentin 300 mg capsule 300 mg PO BID PRN Pain 07/17/24 07/17/24 History metoclopramide HCl 10 mg tablet 10 mg PO Q6H PRN nausea and 07/17/24 Rx (Reglan) vomiting #40 tabs ondansetron HCl 4 mg tablet 4 mg PO Q4 PRN nausea and vomiting 07/17/24 Rx #30 tabs valacyclovir 500 mg tablet 500 mg PO BID 07/17/24 07/17/24 History Patient History Medical History PTSD (post-traumatic stress disorder) Bipolar 1 disorder Cyclic vomiting syndrome Scoliosis History of drug abuse clean since 02/2021 Depression Anxiety Acid reflux Marijuana use medical marijuana for anxiety/ depression Surgical History History of open reduction and internal fixation (ORIF) procedure left elbow Hx of tooth extraction Family History Other No family history of adverse response to anesthesia Social History Smoking Status: Current every day smoker Tobacco Type: Cigarettes Cigarettes Per Day: 10; Second Hand Exposure: Yes; Do You Dip or Chew Tobacco: No; Hx Alcohol Use: No Hx Substance Use: Yes Last Used Substance: Days (ago) Last Used Substance Other:: 07/15/2024 Substance Use Type Other:: medical marijuana - pt states she has a card Preferred Language: Greenlandic Communication Ability: Effective Professional Poker Player Required: No Beliefs That Will Affect Care: None marital status: Single Current Living Situation: Family and Significant Other Current Living Situation Comment: Pt lives with her mother and father and fiance Feels Safe at Home: Yes Assistive Devices: Contacts, Denture - Upper and Denture - Lower Review of Systems as per Subjective / HPI Physical Exam Constitutional: WD/WN, vitals as above Genitourinary: normal external appearance OB Exam Abdomen: + vertex Manual OB Exam: + cervical dilation ( Closed), + cervical effacement 70% and + station high OB Exam Monitor Tracing: + external uterine monitor used and + category I Results & Data Vital Signs (Past 12 Hours) Vital Signs Temp Pulse Resp BP 07/18/24 06:37 36.6 C 67 18 115/70
[2024-07-18 07:36] LABS: Appearance Urine Clear (Clear); Bacteria Urine Automated None Seen (None Seen); Bilirubin Urine Negative (Negative); Blood Urine Negative (Negative); Cast Urine Automated 0-2 /lpf (0-2); Color Urine Yellow; Glucose Urine UA Negative (Negative); Ketones Urine Negative (Negative); Leukocyte Esterase Urine 1+ (Negative); Nitrite Urine Negative (Negative); Protein Urine Negative (Negative); RBC Urine Automated 0-2 /hpf (0-2); Urobilinogen Urine Negative (Negative); pH Urine 6.5 (4.5-7.5)
[2024-07-18] MEDS: BUTORPHANOL TARTRATE 2 MG/ML VIAL IV ONE (07:48)
[2024-07-18 07:59] LABS: Basophils % (auto) 0.5 %; Eosinophils # (auto) 0.06 K/uL (0.00-0.50); Eosinophils % (auto) 0.3 %; Hematocrit (blood only) 31.1 % (37.0-47.0); Hemoglobin 10.4 g/dl (12.0-16.0); Immature Granulocytes # (auto) 0.58 K/uL (0.01-0.20); Immature Granulocytes % (auto) 3.2 %; Lymphocytes # (auto) 3.08 K/uL (1.20-3.40); Lymphocytes % (auto) 16.8 %; Mean Corpuscular Hemoglobin 29.4 pg (25.0-34.0); Mean Corpuscular Hgb Conc 33.4 g/dL (32.0-36.0); Mean Corpuscular Volume 87.9 fL (80.0-100.0); Mean Platelet Volume 11.3 fL (9.4-12.4); Monocytes # (auto) 0.91 K/uL (0.11-0.59); Neutrophils # (auto) 13.57 K/uL (1.40-6.50); Neutrophils % (auto) 74.2 %; Platelet Count 328 K/uL (130-400); RDW Coefficient of Variation 15.7 % (11.5-14.5); RDW Standard Deviation 49.1 fL (36.4-46.3); Red Blood Count 3.54 M/uL (4.20-5.40)
[2024-07-18 08:15] LABS: Albumin Level 3.1 gm/dl (3.4-5.0); BUN Creatinine Ratio 13.2 (10-20); Bilirubin,Total 0.5 mg/dl (0.2-1.0); Calcium 8.3 mg/dl (8.6-10.3); Creatinine Clr Calc Pharmacy 104.6 ml/min; Globulin 3.1 gm/dl (2.5-4.0); Potassium 3.8 mmol/L (3.5-5.1); Total Protein 6.2 gm/dl (6.0-8.3)
[2024-07-18 08:20] LABS: Amphetamines+Metham, Urine Neg (Neg); Barbiturates, Urine Neg (Neg); Benzodiazepine, Urine Neg (Neg); Cocaine, Urine Neg (Neg); Fentanyl, Urine Neg (Neg); MDMA (Ecstacy), Urine Neg (Neg); Marijuana, Urine Pos (Neg); Methadone, Urine Neg (Neg); Opiate, Urine Neg (Neg); Phencyclidine, Urine Neg (Neg)
--- NOTE | 2024-07-18 12:29 | Ultrasound Report ---
US OB BPP wo NST single HISTORY: 29 years-old Female 38 weeks acute pelvic pain with third trimester gestation COMPARISON: 06/20/2024 TECHNIQUE: Multiple real-time ulcerative images of the deep pelvic structures were obtained transabdo minally assessing grayscale appearance, color and spectral flow with M-mode analysis FINDINGS: Biophysical profile score of 6 out of 8, breathing not seen by spring upholsterer. JORGE of 11.09 cm. Unremark able appearance of the anterior placenta. heart rate measured at 130 bpm. Fetus noted within ce phalic positioning. Femur length is 7.29 cm, 37 weeks 2 days. IMPRESSION: 1. Living intrauterine fetus in cephalic positioning. 2. JORGE of 11.09. 3. Biophysical profile score of 6/8. ACT 112: Negative or not required by law. The above report was generated using voice recognition software. It may contain grammatical, syntax o r spelling errors. Electronically signed by: Juancho Sheets M.D. 07/18/2024 12:27 PM
[2024-07-18] MEDS ORDERED: LIDOCAINE 1% LOCAL 20 ML VIAL INFIL PRN (12:52)
[2024-07-18] MEDS ORDERED: OXYTOCIN 30 UNITS/NSS 30 UNITS/500 ML BAG IV PRN ×2 (12:52→12:54)
[2024-07-18] MEDS ORDERED: ONDANSETRON INJ 2 MG/ML 2 ML VIAL IV PRN ×2 (12:59→14:57)
--- NOTE | 2024-07-18 12:59 | Obstetrical Progress Note ---
Date of Service July 18, 2024 Subjective Patient is reevaluated. She has been sleeping after Stadol and IV fluids were given, that she woke up with pain for contractions again they are not as frequent as before but when they come they are painful. heart rate had been category 1 except early decelerations with contractions almost each time. We sent her down to ultrasound for BPP which came back as 6 out of 8, missing point from no breathing. I spoke with [facility] and sent pictures of heart rate monitoring and what to do about delivery plan. Meanwhile I checked her her cervix was still closed, same head ballotable. Right after I checked her she had SROM with meconium stained fluid grossly visible on her sheets. Then I updated [facility] and she recommended oxytocin challenge test, continue with induction if tolerated if not proceed with . plan to Admit, start oxytocin per protocol continues to monitor. Patient understands and agrees with plan. Results & Data Vital Signs (Past 12 Hours) Vital Signs Temp Pulse Resp BP Pulse Ox 07/18/24 12:53 99 07/18/24 12:53 58 L 07/18/24 12:48 99 07/18/24 12:48 63 07/18/24 12:43 98 07/18/24 12:43 60 07/18/24 12:01 20 07/18/24 12:01 36.6 C 20 07/18/24 12:01 63 07/18/24 12:01 141/78 H 07/18/24 07:15 36.6 C 67 18 115/70 07/18/24 06:37 36.6 C 67 18 115/70
--- NOTE | 2024-07-18 13:27 | Obstetrical Progress Note ---
Date of Service July 18, 2024 Assessment & Plan Admission and Anticipated Discharge Date Admission Date: July 18, 2024 Subjective When I went into the room and talk about plan which was recommended by MFM patient declined to start oxytocin. She states she does not want to take any risks and she wants to proceed with primary . I explained to her how we do oxytocin challenge test and we can stop it if baby has decel and then proceed with at that point. Patient still declines oxytocin challenge test and she wants to proceed with primary . Patient understands C section is a major surgery, with risks including but not limited to bleeding , infection, injury to surrounding organs like bowels, bladder, ureters, adhesions, scarring, wound infection, blood cloths in legs/ lungs, longer recovery. Also risks of future repeat Csections. She understands all and wants to proceed with it. All questions were answered. She signed an informed consent. Results & Data Vital Signs (Past 12 Hours) Vital Signs Temp Pulse Resp BP Pulse Ox 07/18/24 13:23 97 07/18/24 13:23 67 07/18/24 13:18 98 07/18/24 13:18 63 07/18/24 13:13 97 07/18/24 13:13 62 07/18/24 13:08 97 07/18/24 13:08 65 07/18/24 13:03 98 07/18/24 13:03 61 07/18/24 12:58 97 07/18/24 12:58 61 07/18/24 12:53 99 07/18/24 12:53 58 L 07/18/24 12:48 99 07/18/24 12:48 63 07/18/24 12:43 98 07/18/24 12:43 60 07/18/24 12:01 20 07/18/24 12:01 36.6 C 20 07/18/24 12:01 63 07/18/24 12:01 141/78 H 07/18/24 07:15 36.6 C 67 18 115/70 07/18/24 06:37 36.6 C 67 18 115/70
[2024-07-18 13:29] LABS: Hematocrit (blood only) 31.6 % (37.0-47.0); Hemoglobin 10.3 g/dl (12.0-16.0); Mean Corpuscular Hemoglobin 28.9 pg (25.0-34.0); Mean Corpuscular Hgb Conc 32.6 g/dL (32.0-36.0); Mean Corpuscular Volume 88.5 fL (80.0-100.0); Mean Platelet Volume 10.9 fL (9.4-12.4); Platelet Count 322 K/uL (130-400); RDW Coefficient of Variation 15.9 % (11.5-14.5); RDW Standard Deviation 50.4 fL (36.4-46.3); Red Blood Count 3.57 M/uL (4.20-5.40); White Blood Count 17.29 K/ul (4.8-10.8)
[2024-07-18] MEDS ORDERED: ONDANSETRON INJ 2 MG/ML 2 ML VIAL ONE (13:44)
[2024-07-18] MEDS ORDERED: PHENYLEPHRINE HCL 25 MG/250 ML NSS IV ONE (13:44)
[2024-07-18] MEDS ORDERED: PHENYLEPHRINE 100MCG/ML 5ML SYR ONE (13:44)
[2024-07-18] MEDS ORDERED: DEXAMETHASONE SOD INJ 4 MG/ML VIAL ONE ×2 (13:44→13:50)
[2024-07-18] MEDS ORDERED: MoRPHine SULFATE PF 1 MG/ML 10 ML AMP/VIAL ONE (13:45)
[2024-07-18] MEDS ORDERED: fentaNYL citrate PF 100 MCG/2 ML VIAL ONE (13:45)
[2024-07-18] MEDS: ACETAMINOPHEN 500 MG TAB PO SCH (13:47)
[2024-07-18] MEDS: CITRIC ACID/SODIUM CITRATE 15 ML UDC PO SCH (13:50)
--- NOTE | 2024-07-18 13:55 | Anesthesiology Consultation ---
Date of Service July 18, 2024 Assessment & Plan (1) Encounter for pre-operative examination: Chart Review Chart Review: Acceptable Risk for Surgery and Patient NOT seen in Pre Admission Testing Consults Requested none History Surgery Operation Date: 07/18/24 13:30 Proposed Procedures p Section in LD - Cody Hill MD Height/Weight Height: 5 ft 3 in Weight: 74.389 kg Allergies Allergy/AdvReac Type Severity Reaction Status Date / Time No Known Allergies Allergy Verified 06/19/24 19:30 Medications Home Medications Medication Instructions Recorded Confirmed Last Taken omeprazole 40 mg capsule,delayed 40 mg PO BID 01/26/23 07/18/24 07/18/24 02:30 release aripiprazole 15 mg tablet 15 mg PO QAM 01/11/24 07/18/24 07/16/24 09:00 escitalopram oxalate 20 mg tablet 20 mg PO QAM 01/11/24 07/18/24 07/16/24 09:00 ondansetron 4 mg disintegrating 4 mg PO Q6H PRN nausea and 01/11/24 07/18/24 07/18/24 04:00 tablet vomiting #10 tabs vit no.95-ferrous 1 tab PO DAILY 01/11/24 07/18/24 07/15/24 09:00 fumarate 28 mg-folic acid 800 mcg tablet () promethazine 25 mg tablet 25 mg PO Q6H PRN nausea and 01/11/24 07/18/24 07/17/24 18:00 vomiting #12 tabs famotidine 40 mg tablet 40 mg PO BID 06/20/24 07/18/24 07/18/24 02:30 cephalexin 500 mg capsule 500 mg PO TID 7 days #21 caps 07/17/24 07/18/24 Unknown gabapentin 300 mg capsule 300 mg PO BID PRN Pain 07/17/24 07/18/24 07/16/24 09:00 metoclopramide HCl 10 mg tablet 10 mg PO Q6H PRN nausea and 07/17/24 07/18/24 07/17/24 11:00 (Reglan) vomiting #40 tabs ondansetron HCl 4 mg tablet 4 mg PO Q4 PRN nausea and vomiting 07/17/24 07/18/24 07/18/24 04:00 #30 tabs valacyclovir 500 mg tablet 500 mg PO BID 07/17/24 07/18/24 07/18/24 02:30 NPO Date Last Intake of Fluids: 07/18/24 Time Last Intake of Fluids: 12:00 Date Last Intake of Solids: 07/17/24 Time Last Intake of Solids: 15:00 Past Medical History Medical History Herpes PTSD (post-traumatic stress disorder) Bipolar 1 disorder Cyclic vomiting syndrome Scoliosis History of drug abuse clean since 02/2021 Depression Anxiety Acid reflux Marijuana use medical marijuana for anxiety/ depression Exercise / Class Metabolic Activity II 4-5 Yardwork/Stairs/Walk up hill Past Family History Family History Other No family history of adverse response to anesthesia Past Surgical History Surgical History History of open reduction and internal fixation (ORIF) procedure left elbow Hx of tooth extraction all teeth removed. Wears dentures Social History Smoking Status: Current every day smoker tobacco type: cigarettes Smoking cigarettes per day: 10 Do You Dip or Chew Tobacco: No Hx Alcohol Use: No Hx Substance Use: Yes substance use type: marijuana Substance Use Type Other:: medical marijuana - pt states she has a card Last Used Substance: Days (ago) Last Used Substance Other:: 07/15/2024 Physical Exam Vital Signs Last Vital Signs Temp 36.6 C 07/18/24 12:01 Pulse 67 07/18/24 13:48 Resp 20 07/18/24 12:01 BP 141/78 H 07/18/24 12:01 Pulse Ox 97 07/18/24 13:48 Testing Laboratory Results 07/18/24 13:14 07/18/24 07:28 Urine Color Yellow 07/18/24 Unknown Urine Appearance Clear (Clear) 07/18/24 Unknown Urine pH 6.5 (4.5-7.5) 07/18/24 Unknown Ur Specific [place] 1.010 (1.000-1.030) 07/18/24 Unknown Urine Protein Negative (Negative) 07/18/24 Unknown Urine Glucose (UA) Negative (Negative) 07/18/24 Unknown Urine Ketones Negative (Negative) 07/18/24 Unknown Urine Nitrite Negative (Negative) 07/18/24 Unknown Ur Leukocyte Esterase 1+ (Negative) H 07/18/24 Unknown Urine WBC (Auto) 11-20 /hpf (0-5) H 07/18/24 Unknown Urine RBC (Auto) 0-2 /hpf (0-2) 07/18/24 Unknown U Hyaline Cast (Auto) 0-2 /lpf (0-2) 07/18/24 Unknown U Epithel Cells (Auto) 3-5 /hpf (0-2) H 07/18/24 Unknown Urine Bacteria (Auto) None Seen (None Seen) 07/18/24 Unknown
[2024-07-18] MEDS: ceFAZolin 2000MG 2,000 MG/15 ML SYR IV SCH (14:05)
[2024-07-18] MEDS ORDERED: SODIUM CHLORIDE 0.9% 1,000 ML IV SCH ×2 (14:30→15:30)
[2024-07-18] MEDS: cefTRIAXone SODIUM 1,000 MG/50 ML BAG IV ONE (14:33)
[2024-07-18] MEDS: CITRIC ACID/SODIUM CITRATE 15 ML UDC ONE (14:33)
[2024-07-18] MEDS ORDERED: OXYTOCIN 10 UNITS/ML VIAL ONE (14:47)
[2024-07-18] MEDS ORDERED: NALOXONE HCL 0.4 MG/1 ML VIAL/CARP IV PRN (14:57)
[2024-07-18] MEDS ORDERED: NALOXONE HCL 1 MG in SODIUM CHLORIDE 0.9% 1,000 ML IV PRN (14:57)
[2024-07-18] MEDS ORDERED: ePHEDrine sulfate 50 MG/ML AMP IV PRN (14:57)
[2024-07-18] MEDS ORDERED: PROMETHAZINE 6.25 MG/50.25 ML BAG IV PRN (14:57)
[2024-07-18] MEDS ORDERED: NALOXONE HCL 0.08 MG in SYRINGE 1.8 ML IV PRN (14:57)
[2024-07-18] MEDS ORDERED: NALBUPHINE HCL INJ 10 MG/ML AMP IV PRN (14:57)
[2024-07-18] MEDS ORDERED: diphenhydrAMINE 50 MG/ML VIAL IV PRN (14:57)
[2024-07-18] MEDS ORDERED: oxyCODONE HCL IR 5 MG TAB (IMMEDIATE RELEASE) PO PRN (14:57)
[2024-07-18] MEDS ORDERED: DC INTRASPINAL MORPHINE SCH (15:00)
[2024-07-18] MEDS ORDERED: NO NARCOTICS OR SEDATIVES SCH (15:00)
[2024-07-18] MEDS ORDERED: MAGNESIUM HYDROXIDE SUSP 30 ML UDC PO PRN (15:22)
[2024-07-18] MEDS ORDERED: SENNA 8.6 MG TAB PO PRN (15:22)
[2024-07-18] MEDS ORDERED: BENZOCAINE 20% SPRY 85 APPLN/85 GM CAN EXT PRN (15:22)
[2024-07-18] MEDS ORDERED: HYDROCORTISONE ACETATE 25 MG SUPP PR PRN (15:22)
--- NOTE | 2024-07-18 15:24 | Anesthesiology Progress Note ---
Date of Service July 18, 2024 Anesthesia Post Procedure Vital Signs Vital Signs: Temp Pulse Resp BP Pulse Ox 07/18/24 15:21 99 07/18/24 15:21 54 L 07/18/24 15:18 53 L 07/18/24 15:18 146/71 H 07/18/24 13:48 97 07/18/24 13:48 67 07/18/24 13:43 97 07/18/24 13:43 59 L 07/18/24 13:38 97 07/18/24 13:38 61 07/18/24 13:33 98 07/18/24 13:33 54 L 07/18/24 13:28 98 07/18/24 13:28 56 L 07/18/24 13:23 97 07/18/24 13:23 67 07/18/24 13:18 98 07/18/24 13:18 63 07/18/24 13:13 97 07/18/24 13:13 62 07/18/24 13:08 97 07/18/24 13:08 65 07/18/24 13:03 98 07/18/24 13:03 61 07/18/24 12:58 97 07/18/24 12:58 61 07/18/24 12:53 99 07/18/24 12:53 58 L 07/18/24 12:48 99 07/18/24 12:48 63 07/18/24 12:43 98 07/18/24 12:43 60 07/18/24 12:01 20 07/18/24 12:01 36.6 C 20 07/18/24 12:01 63 07/18/24 12:01 141/78 H 07/18/24 07:15 36.6 C 67 18 115/70 07/18/24 06:37 36.6 C 67 18 115/70 Transfer of Care Handoff Completed per policy Notes Mental Status: alert / awake / arousable and participated in evaluation Patient Amnestic to Procedure: No Nausea / Vomiting: adequately controlled Pain: adequately controlled Airway Patency, RR, SpO2: stable & adequate BP & HR: stable & adequate Hydration State: stable & adequate Neuraxial Anesthesia: was administered and sensory block is resolving Anesthetic Complications: no major complications apparent and Pt Satisfied with anesthetic care
--- NOTE | 2024-07-18 15:30 | Operative Report ---
Post Operative Report Pre & Post Diagnosis Operation Date: 07/18/24 13:30 Pre-Op Diagnosis: Non reassuring heart rate. Meconium stained fluid. Remote from delivery. Post-Op Diagnosis: Non reassuring heart rate. Meconium stained fluid. Remote from delivery. Delivery of live male child at 1435. I identified the patient and participated in the time-out.: Yes Procedure Operation Date: 07/18/24 13:30 Actual Procedures p Section in LD, delivery lower uterine transvere incicion, lmc at 1435(Bilateral) - Cody Hill MD Surgeon Cody Hill MD Outside Sales Inspector Dr Hernandez Quantitative Blood Loss (QBL) 560 ml Findings Consistent with Post-Op Diagnosis Baby was a viable male delivered at 1435 PM, encephali presentation, Apgars 8/9, weight is 294 0 g Maternal findings, normal uterus with tubes and ovaries Specimens placenta and cord Drains Evans catheter drained 100 mL of clear urine Anesthesia Type Spinal Complications none Indications patient is a 29-year-old -0-2-0 at 38 weeks and 2 days of gestation who presented to labor and delivery with contractions, nausea vomiting, unable to keep fluids down, not in labor, heart rate category 2 with decelerations with each contractions, spontaneous rupture of membranes with meconium stained fluid, BPP 6/10, remote from delivery. Patient was offered oxytocin challenge test before proceeding with but she declined. See my prior progress notes. she understood risks of and signed informed consent Description of Procedure Patient was taken to operating room where a spinal anesthesia was given without difficulty. She was placed in dorsal supine position with a leftward tilt. She was prepared and draped in usual sterile fashion. A financial skin incision was made and carried through to the underlying layer of fascia with the Bovie. Fascia was incised in the midline and incision was extended laterally with the help of Forrester scissors. Then the upper aspect of the fascial incision was grasped with 2 Quin clamps elevated the underlying rectus muscles were dissected off sharply with Forrester scissors. Same thing was done on the lower incision. Then the muscles were in the midline, peritoneum was identified grasped with 2 pickups and entered sharply with Metzenbaum scissors. Peritoneal incision was extended superior and inferiorly with good visualization of the bladder. The bladder blade was inserted. Vesicouterine peritoneum was identified, grasped with pickups and entered sharply with Metzenbaum scissors, bladder flap was created digitally and bladder blade was reinserted. Uterus was incised in transverse fashion, incision was extended laterally, memb ranes were ruptured and clear fluid was obtained. Baby's head was delivered without difficulty, followed by shoulders and body with minimal traction without faculty. Mouth and nose were suctioned there was dried on the field he was vigorously crying and moving. The cord was clamped times and cut at 1 minute delay and then the was handed off to the pediatric team. Then the placenta was delivered manually as intact and complete. Uterus was externalized and cleared of all clots and debris's. Uterine incision was repaired with 0 Vicryl in a running locked fashion, second umbricating layer was placed with the same suture in running locked fashion. Excellent hemostasis achieved. Cul-de-sac and the pelvis was irrigated with warm normal saline and suctioned. Incision was checked of hemostatic again. Uterus was returned to the abdomen, parietal peritoneum was reapproximated with 3-0 Vicryl in a running fashion and the muscles were reapproximated in the same suture in a running fashion. All of the fascia and rectus muscles were hemostatic. Rectus fascia was reapproximated with 0 Vicryl starting from both columns meeting in the midline. Subcuticular fat tissue was brought together with 2-0 Vicryl in a running fashion, skin was closed with 4-0 Monocryl in a subcuticular cuticular fashion. The mom and baby tolerated procedure well. Sponge needle instrument count was correct x3. she was given 2 g of cefazolin before surgery. No complications happened, I was present during whole procedure. My library serials assistant was needed for retraction, hemostasis and aid during delivery of in josé antonio I attest to the content of the Intraoperative Record and any orders documented therein. Any exceptions are noted below.
[2024-07-18] MEDS: DIPHTHER/TETAN/PERTUS Vaccine (Tdap, Adol/Adult) 0.5mL IM ONE (15:58)
[2024-07-18] MEDS: MEASLES, MUMPS & RUBELLA VIRUS VACCINE (MMR) 0.5ML VIAL SQ ONE (15:58)
[2024-07-18] MEDS: KETOROLAC 30 MG/ML VIAL IV SCH (16:11)
[2024-07-18] MEDS: KETOROLAC 30 MG/ML VIAL ONE (16:13)
[2024-07-18] MEDS: OXYTOCIN 20 UNITS/1002ML LR IV ONE (16:42)
[2024-07-18] MEDS: LABETALOL HCL 100 MG TAB ONE (17:07)
[2024-07-18] MEDS: LABETALOL HCL 100 MG TAB PO ONE (17:19)
[2024-07-18] MEDS: MoRPHine SULFATE PF 1 MG/ML 10 ML AMP/VIAL INT SPINAL ONE (17:19)
--- NOTE | 2024-07-18 17:26 | Obstetrical Progress Note ---
Date of Service July 18, 2024 Assessment & Plan Admission and Anticipated Discharge Date Admission Date: July 18, 2024 Subjective Patient is reevaluated. her blood pressures have been repeated since surgery. Has no symptoms. Denies headache, change in vision, nausea vomiting, epigastric or right upper quadrant pain, chest pain shortness of breath. She feels soreness in the incision only intensity 6 out of 10. She desires IV pain medication so that she can sleep. Bleeding is minimal, fundus firm, Last blood pressure was 146/84, Urine output is about 100 for the last 2 hours slightly darker Will start labetalol p.o. , increase IV fluid rate and monitor closely. Results & Data Vital Signs (Past 12 Hours) Vital Signs Temp Pulse Resp BP Pulse Ox 07/18/24 17:21 98 07/18/24 17:21 52 L 07/18/24 17:16 99 07/18/24 17:16 56 L 07/18/24 17:11 98 07/18/24 17:11 53 L 07/18/24 17:06 96 07/18/24 17:06 52 L 07/18/24 17:03 54 L 07/18/24 17:03 146/84 H 07/18/24 17:01 96 07/18/24 17:01 51 L 07/18/24 16:58 93 07/18/24 16:58 55 L 07/18/24 16:56 96 07/18/24 16:56 53 L 07/18/24 16:55 57 L 16 96 07/18/24 16:53 51 L 07/18/24 16:53 159/97 H 07/18/24 16:51 98 07/18/24 16:51 50 L 07/18/24 16:47 94 07/18/24 16:47 50 L 07/18/24 16:46 96 07/18/24 16:46 51 L 07/18/24 16:43 50 L 07/18/24 16:43 164/96 H 07/18/24 16:42 94 07/18/24 16:42 52 L 07/18/24 16:41 95 07/18/24 16:41 51 L 07/18/24 16:36 95 07/18/24 16:36 54 L 07/18/24 16:33 49 L 07/18/24 16:33 161/94 H 07/18/24 16:31 96 07/18/24 16:31 49 L 07/18/24 16:26 98 07/18/24 16:26 51 L 07/18/24 16:25 54 H 95 07/18/24 16:25 51 L 18 98 07/18/24 16:25 18 07/18/24 16:23 52 L 07/18/24 16:23 159/94 H 07/18/24 16:21 98 07/18/24 16:21 51 L 07/18/24 16:16 97 07/18/24 16:16 51 L 07/18/24 16:15 51 L 20 98 07/18/24 16:13 47 L 07/18/24 16:13 170/91 H 07/18/24 16:11 99 07/18/24 16:11 50 L 07/18/24 16:06 97 07/18/24 16:06 53 L 07/18/24 16:05 54 L 18 98 07/18/24 16:01 95 07/18/24 16:01 65 07/18/24 15:56 96 07/18/24 15:56 53 L 07/18/24 15:55 50 L 17 164/90 H 96 07/18/24 15:53 50 L 07/18/24 15:53 164/90 H 07/18/24 15:51 100 07/18/24 15:51 49 L 07/18/24 15:47 94 07/18/24 15:47 59 L 07/18/24 15:46 98 07/18/24 15:46 51 L 07/18/24 15:45 50 L 14 07/18/24 15:43 51 L 07/18/24 15:43 165/85 H 07/18/24 15:41 100 07/18/24 15:41 49 L 07/18/24 15:36 96 07/18/24 15:36 61 07/18/24 15:35 50 L 18 100 07/18/24 15:34 54 L 07/18/24 15:34 160/90 H 07/18/24 15:31 100 07/18/24 15:31 54 L 07/18/24 15:26 100 07/18/24 15:26 54 L 07/18/24 15:21 99 07/18/24 15:21 54 L 07/18/24 15:18 53 L 07/18/24 15:18 146/71 H 07/18/24 13:48 97 07/18/24 13:48 67 07/18/24 13:43 97 07/18/24 13:43 59 L 07/18/24 13:38 97 07/18/24 13:38 61 07/18/24 13:33 98 07/18/24 13:33 54 L 07/18/24 13:28 98 07/18/24 13:28 56 L 07/18/24 13:23 97 07/18/24 13:23 67 07/18/24 13:18 98 07/18/24 13:18 63 07/18/24 13:13 97 07/18/24 13:13 62 07/18/24 13:08 97 07/18/24 13:08 65 07/18/24 13:03 98 07/18/24 13:03 61 07/18/24 12:58 97 07/18/24 12:58 61 07/18/24 12:53 99 07/18/24 12:53 58 L 07/18/24 12:48 99 07/18/24 12:48 63 07/18/24 12:43 98 07/18/24 12:43 60 07/18/24 12:01 20 07/18/24 12:01 36.6 C 20 07/18/24 12:01 63 07/18/24 12:01 141/78 H 07/18/24 07:15 36.6 C 67 18 115/70 07/18/24 06:37 36.6 C 67 18 115/70
[2024-07-18] MEDS: SIMETHICONE 80 MG CHEW PO SCH (17:35)
[2024-07-18] MEDS: HYDROmorphone INJ 0.5 MG/0.5 ML SYR IV PRN (17:39)
[2024-07-18] MEDS ORDERED: METOCLOPRAMIDE HCL 10 MG TABLET PO PRN (17:57)
[2024-07-18] MEDS: OXYTOCIN 20 UNITS in D5W AND LACTATED RINGERS 1,000 ML IV SCH (18:25)
[2024-07-18] MEDS: SODIUM CHLORIDE 0.9% 1,000 ML IV SCH (18:56)
[2024-07-18] MEDS: FAMOTIDINE 40 MG TABLET PO SCH (21:28)
[2024-07-18] MEDS: PANTOprazole 40 MG TAB PO SCH (21:28)
[2024-07-18] MEDS: DOCUSATE SODIUM 100 MG CAP PO SCH (21:28)
[2024-07-18] MEDS: ACETAMINOPHEN 325 MG TAB PO SCH (21:31)
[2024-07-18] MEDS: ceFAZolin 2000MG 2,000 MG/15 ML SYR IV ONE (21:31)
[2024-07-18] MEDS ORDERED: MELATONIN 3 MG TAB PO PRN (21:56)
[2024-07-19] MEDS ORDERED: CITRIC ACID/SODIUM CITRATE 15 ML UDC PO SCH (06:00)
[2024-07-19] MEDS: cephALEXin 500 MG CAP PO SCH (06:01)
[2024-07-19 06:08] LABS: Basophils # (auto) 0.05 K/uL (0.00-0.20); Basophils % (auto) 0.3 %; Eosinophils # (auto) 0.09 K/uL (0.00-0.50); Eosinophils % (auto) 0.5 %; Hematocrit (blood only) 27.8 % (37.0-47.0); Immature Granulocytes # (auto) 0.21 K/uL (0.01-0.20); Immature Granulocytes % (auto) 1.2 %; Lymphocytes # (auto) 4.49 K/uL (1.20-3.40); Lymphocytes % (auto) 25.7 %; Mean Corpuscular Hemoglobin 28.5 pg (25.0-34.0); Mean Corpuscular Hgb Conc 32.4 g/dL (32.0-36.0); Monocytes # (auto) 1.07 K/uL (0.11-0.59); Monocytes % (auto) 6.1 %; Neutrophils # (auto) 11.54 K/uL (1.40-6.50); Neutrophils % (auto) 66.2 %; Platelet Count 276 K/uL (130-400); RDW Coefficient of Variation 15.8 % (11.5-14.5); RDW Standard Deviation 49.2 fL (36.4-46.3); Red Blood Count 3.16 M/uL (4.20-5.40); White Blood Count 17.45 K/ul (4.8-10.8)
[2024-07-19] MEDS: LABETALOL HCL 100 MG TAB PO SCH (06:08)
[2024-07-19] MEDS: NICOTINE 7 MG/24 HR TDSY TD SCH (08:42)
[2024-07-19] MEDS ORDERED: GABAPENTIN 300 MG CAP PO PRN (08:57)
[2024-07-19] MEDS ORDERED: diphenhydrAMINE Capsule 25 MG CAP PO PRN (08:57)
[2024-07-19] MEDS ORDERED: HYDROmorphone INJ 0.5 MG/0.5 ML SYR IV PRN (08:57)
[2024-07-19] MEDS ORDERED: diphenhydrAMINE 50 MG/ML VIAL IV PRN (08:57)
[2024-07-19] MEDS: FERROUS SULFATE 325 MG TAB PO SCH (08:58)
[2024-07-19] MEDS: PRENATAL VITAMIN 1 TAB PO SCH (08:58)
[2024-07-19] MEDS: ARIPiprazole 15 MG TAB PO SCH (08:59)
[2024-07-19] MEDS: ESCITALOPRAM OXALATE 20 MG TAB PO SCH (08:59)
[2024-07-19] MEDS: oxyCODONE HCL IR 5 MG TAB (IMMEDIATE RELEASE) PO PRN (12:05)
[2024-07-19] MEDS: ONDANSETRON INJ 2 MG/ML 2 ML VIAL IV PRN (13:25)
--- NOTE | 2024-07-19 14:19 | Obstetrical Progress Note ---
Date of Service July 19, 2024 Subjective Ambulation: ambulating normally Voiding: no voiding problems Passing Gas:: Yes Diet Tolerance:: regular diet Lochia:: Small Feeding Type:: bottle feeding Current Pain Level(1-10): 0 doing well Physical Exam Constitutional WD/WN, vitals as above Gastrointestinal (Abdomen) Inspection/Auscultation: abdomen normal to inspection abdomen soft and non-tender. fundus firm below U. incision c/d/i Musculoskeletal Extremities: extremities normal to inspection Skin no rashes, warm and dry Neurologic patellar DTR's 2+ bilat, sensation intact Psychiatric A+Ox3, euthymic affect Results & Data Vital Signs (Past 12 Hours) Vital Signs Temp Pulse Pulse Pulse Resp BP BP 07/19/24 12:05 36.8 C 69 18 152/92 H 07/19/24 08:35 18 07/19/24 08:35 36.6 C 64 18 145/89 H 07/19/24 07:20 16 07/19/24 06:34 18 07/19/24 06:09 66 07/19/24 05:15 18 07/19/24 04:05 18 07/19/24 03:35 18 07/19/24 03:35 36.6 C 62 18 152/88 H 07/19/24 02:21 16 Pulse Ox O2 Del Method 07/19/24 12:05 99 Room Air 07/19/24 08:35 98 07/19/24 08:35 98 Room Air 07/19/24 07:20 97 07/19/24 06:34 97 07/19/24 06:09 07/19/24 05:15 96 07/19/24 04:05 93 07/19/24 03:35 94 07/19/24 03:35 94 Room Air 07/19/24 02:21 96 Laboratory Results 07/18/24 07/18/24 07/18/24 07:28 13:14 Unknown WBC 18.30 H 17.29 H RBC 3.54 L 3.57 L Hgb 10.4 L 10.3 L Hct 31.1 L 31.6 L MCV 87.9 88.5 MCH 29.4 28.9 MCHC 33.4 32.6 RDW Std Deviation 49.1 H 50.4 H RDW Coeff of Ranjit 15.7 H 15.9 H Plt Count 328 322 MPV 11.3 10.9 Immature Gran % (Auto) 3.2 Neut % (Auto) 74.2 Lymph % (Auto) 16.8 [place] % (Auto) 5.0 Eos % (Auto) 0.3 Baso % (Auto) 0.5 Neut # (Auto) 13.57 H Lymph # (Auto) 3.08 [place] # (Auto) 0.91 H Eos # (Auto) 0.06 Baso # (Auto) 0.10 Immature Gran # (Auto) 0.58 H Sodium 139 Potassium 3.8 Chloride 111 H Carbon Dioxide 21 Anion Gap 7 BUN 10 Creatinine 0.76 Est Cr Clr Drug Dosing 104.6 eGFR 108.04 BUN/Creatinine Ratio 13.2 Glucose 93 Calcium 8.3 L Magnesium 2.0 Total Bilirubin 0.5 AST 20 ALT 18 Alkaline Phosphatase 478 H Total Protein 6.2 Albumin 3.1 L Globulin 3.1 Albumin/Globulin Ratio 1.0 Urine Color Yellow Urine Appearance Clear Urine pH 6.5 Ur Specific [place] 1.010 Urine Protein Negative Urine Glucose (UA) Negative Urine Ketones Negative Urine Blood Negative Urine Nitrite Negative Urine Bilirubin Negative Urine Urobilinogen Negative Ur Leukocyte Esterase 1+ H Urine WBC (Auto) 11-20 H Urine RBC (Auto) 0-2 U Hyaline Cast (Auto) 0-2 U Epithel Cells (Auto) 3-5 H Urine Bacteria (Auto) None Seen Urine Opiates Screen Neg Ur Methadone, Qual Neg Urine Fentanyl Screen Neg Urine Barbiturates Neg Ur Phencyclidine (PCP) Neg U Amphetamin/Meth Scrn Neg MDMA (Ecstasy) Screen Neg U Benzodiazepines Scrn Neg Ur Cocaine Metabolite Neg U Marijuana (THC) Screen Pos H Treponema pallidum Ab Negative Blood Type A Positive Antibody Screen NEGATIVE 07/19/24 05:45 WBC 17.45 H RBC 3.16 L Hgb 9.0 L Hct 27.8 L MCV 88.0 MCH 28.5 MCHC 32.4 RDW Std Deviation 49.2 H RDW Coeff of Ranjit 15.8 H Plt Count 276 MPV 11.0 Immature Gran % (Auto) 1.2 Neut % (Auto) 66.2 Lymph % (Auto) 25.7 [place] % (Auto) 6.1 Eos % (Auto) 0.5 Baso % (Auto) 0.3 Neut # (Auto) 11.54 H Lymph # (Auto) 4.[address] [place] # (Auto) 1.07 H Eos # (Auto) 0.09 Baso # (Auto) 0.05 Immature Gran # (Auto) 0.21 H Sodium Potassium Chloride Carbon Dioxide Anion Gap BUN Creatinine Est Cr Clr Drug Dosing eGFR BUN/Creatinine Ratio Glucose Calcium Magnesium Total Bilirubin AST ALT Alkaline Phosphatase Total Protein Albumin Globulin Albumin/Globulin Ratio Urine Color Urine Appearance Urine pH Ur Specific [place] Urine Protein Urine Glucose (UA) Urine Ketones Urine Blood Urine Nitrite Urine Bilirubin Urine Urobilinogen Ur Leukocyte Esterase Urine WBC (Auto) Urine RBC (Auto) U Hyaline Cast (Auto) U Epithel Cells (Auto) Urine Bacteria (Auto) Urine Opiates Screen Ur Methadone, Qual Urine Fentanyl Screen Urine Barbiturates Ur Phencyclidine (PCP) U Amphetamin/Meth Scrn MDMA (Ecstasy) Screen U Benzodiazepines Scrn Ur Cocaine Metabolite U Marijuana (THC) Screen Treponema pallidum Ab Blood Type Antibody Screen
[2024-07-19] MEDS ORDERED: KETOROLAC 30 MG/ML VIAL IV PRN (15:22)
[2024-07-19] MEDS: IBUPROFEN 600 MG TAB PO SCH (16:10)
[2024-07-19] MEDS: bisacodyL 5 MG TABEC PO SCH (20:45)
[2024-07-19] MEDS: ACETAMINOPHEN 500 MG TAB PO PRN (22:00)
[2024-07-20] MEDS: PROMETHAZINE 12.5 MG/50.5 ML BAG IV PRN (04:26)
[2024-07-20 06:41] LABS: Basophils # (auto) 0.05 K/uL (0.00-0.20); Basophils % (auto) 0.4 %; Eosinophils # (auto) 0.16 K/uL (0.00-0.50); Eosinophils % (auto) 1.2 %; Hematocrit (blood only) 27.7 % (37.0-47.0); Hemoglobin 8.9 g/dl (12.0-16.0); Immature Granulocytes % (auto) 1.5 %; Lymphocytes # (auto) 3.67 K/uL (1.20-3.40); Lymphocytes % (auto) 28.4 %; Mean Corpuscular Hemoglobin 28.3 pg (25.0-34.0); Mean Corpuscular Hgb Conc 32.1 g/dL (32.0-36.0); Mean Corpuscular Volume 87.9 fL (80.0-100.0); Mean Platelet Volume 10.9 fL (9.4-12.4); Monocytes # (auto) 0.62 K/uL (0.11-0.59); Monocytes % (auto) 4.8 %; Neutrophils # (auto) 8.22 K/uL (1.40-6.50); Neutrophils % (auto) 63.7 %; Nucleated RBC # (auto) 0.03 K/uL (0.00-0.12); Nucleated RBC % (auto) 0.2 %; Platelet Count 318 K/uL (130-400); RDW Coefficient of Variation 15.9 % (11.5-14.5); RDW Standard Deviation 49.6 fL (36.4-46.3); Red Blood Count 3.15 M/uL (4.20-5.40); White Blood Count 12.92 K/ul (4.8-10.8)
[2024-07-20 07:33] VITALS: BP 128/78; PULSE 70; RESP 18; TEMP 98.4; O2SAT 96
[2024-07-20] MEDS: ONDANSETRON 4 MG OD TAB PO PRN (09:14)
--- NOTE | 2024-07-20 11:25 | Obstetrical Progress Note ---
Date of Service July 20, 2024 Assessment & Plan (1) delivery delivered: Pt doing well No complaints Disch home with instrcutions Subjective Ambulation: ambulating normally Voiding: no voiding problems Passing Gas:: Yes Diet Tolerance:: clear liquids Lochia:: Small Feeding Type:: breast feeding Review of Systems All systems reviewed & are unremarkable except as noted in HPI & below Physical Exam Constitutional WD/WN, vitals as above well developed and well nourished Eyes PERRL, conjunctivae normal, anicteric sclerae ENMT external ear and nose normal, oropharynx normal Neck trachea midline, no thyromegaly Respiratory normal respiratory effort, lungs clear to auscultation Cardiovascular RRR, no murmur, no edema Chest (Breasts) normal inspection/palpation of breasts Gastrointestinal (Abdomen) normal bowel sounds, soft, nontender, no hepatosplenomegaly Musculoskeletal no cyanosis or clubbing, extremities motor strength 5/5 Skin no rashes, warm and dry + incision (Clean,dry and intact) Neurologic patellar DTR's 2+ bilat, sensation intact Psychiatric A+Ox3, euthymic affect Genitourinary normal external appearance Lymphatic no cervical or axillary lymphadenopathy Results & Data Vital Signs (Past 12 Hours) Vital Signs Temp Pulse Pulse Resp BP Pulse Ox O2 Del Method 07/20/24 07:32 36.9 C 70 18 128/78 96 Room Air 07/20/24 04:30 36.5 C 62 16 130/82 99 Room Air
[2024-07-20] MEDS ORDERED: IBUPROFEN 600 MG TAB PO PRN (15:22)
[2024-07-20] MEDS ORDERED: bisacodyL 10 MG SUPP PR PRN (15:22)
[2024-07-20] MEDS ORDERED: ACETAMINOPHEN 325 MG TAB PO PRN (21:22)
[2024-07-21 15:47] LABS: Marijuana Quant, GCMS Urine 1175 ng/mL (<5)
== END 2024-07-20 13:45 | disposition home or self-care (01) | DRG 788 ==
LOC: OPB 06:19 → 4S1 06:22 → 4E2 19:50